=== PATIENT | male | born 1965 | race Caucasian/White ===

== ENCOUNTER 2022-03-13 10:22 | Outpatient (CLI) | payer MEDICARE, SELFPAY | END 2022-03-13 10:23 | disposition home or self-care (01) | PROVIDERS: Visit Provider Family Medicine | DX: M51.36 Other intervertebral disc degeneration, lumbar region (principal); M54.16 Radiculopathy, lumbar region | CPT/HCPCS: 62323; J0702; Q9966 ==

== ENCOUNTER 2022-05-22 01:16 | Emergency (ER) | payer MEDICARE, SELFPAY ==
[2022-05-22 01:32] VITALS: BP 164/86; PULSE 78; RESP 22; TEMP 36.8; O2SAT 95; BMI 43.3
[2022-05-22 01:41] VITALS: PULSE 68; O2SAT 98
[2022-05-22 01:45] VITALS: PULSE 75; O2SAT 98
[2022-05-22 02:00] VITALS: PULSE 75; O2SAT 99
[2022-05-22 02:03] LABS: Troponin, Point-of-Care* 0.01 ng/ml (0.01-0.04)
[2022-05-22 02:03] LABS: Basophils Absolute Auto 0.02 K/uL (0.00-0.30); Basophils Percent Auto 0.2 % (0.0-3.0); Eosinophils Absolute Auto 0.23 K/uL (0.00-0.50); Eosinophils Percent Auto 2.4 % (0.0-7.0); Hematocrit 39.4 % (37.0-53.0); Immature Granulocytes Abs Auto 0.03 K/uL (0.00-0.30); Immature Granulocytes Pct Auto 0.3 %; Lymphocytes Percent Auto 15.5 % (20-44); Mean Corpuscular HGB Conc 31 gm/dL (32-36); Mean Corpuscular Hemoglobin 23 pg (26-34); Mean Corpuscular Volume 76 fL (80-100); Monocytes Percent Auto 7.9 % (0.0-11.0); Neutrophils Percent Auto 73.7 % (42.0-72.0); Platelet Count* 190 K/uL (140-440); RDW Coefficient of Variation % 15.6 % (11.5-15.5); Red Blood Count 5.19 m/uL (4.30-5.90); White Blood Count* 9.55 K/uL (4.50-11.00)
[2022-05-22 02:06] LABS: Slide Review Reflex No
[2022-05-22] MEDS: LORazepam 1 MG TABLET PO (02:09)
[2022-05-22 02:15] VITALS: PULSE 68; O2SAT 99
[2022-05-22 02:15] LABS: C Reactive Protein* 1.6 mg/dL (0.5-1.0); Sodium* 142 mmol/L (135-149)
[2022-05-22 02:16] LABS: Blood Urea Nitrogen* 14 mg/dL (7-30); Carbon Dioxide* 31 mmol/L (20-32); Chloride* 105 mmol/L (96-114); Creatinine* 1.1 mg/dL (0.5-1.5); Est. Creatinine Clearance* 72.55; Estimated Glomerular Filt Rate 79 ml/min; Glucose* 143 mg/dL (60-115); NT Pro B Type NatriureticPept* 536 pg/mL; Potassium* 4.1 mmol/L (3.6-5.1); Troponin I* 0.02 ng/mL (0.01-0.04)
--- NOTE | 2022-05-22 02:19 | ED_ITS ---
HPI - General Adult General Chief complaint: Chest Pain Stated complaint: chest pain, shortness of breath Time Seen by Provider: 05/22/22 01:32 Source: patient and family Mode of arrival: ambulatory Limitations: no limitations History of Present Illness HPI narrative: 56-year-old male with a history of long COVID and admitted anxiety presents to the ED with what he describes as anxiety. He states that he has ongoing dyspnea and chronic whole body pain as a result of COVID for the last couple of years. Patient has been oxygen dependent on 2 L since his diagnosis. He states that around 6:00 p.m. he started having increased chest pain over his baseline. He does have a notable history of coronary artery disease with stents placed 2 years ago. He says that he felt anxious with this tried turning up his oxygen which he does very frequently to try to help with his shortness of breath. He also tried taking nitroglycerin after notifying his significant other 1 hour later in it did not help his symptoms. He has not tried any Tylenol or ibuprofen for the chest pain. He admits to feeling anxious. He has not used any stimulants or mood altering substances. He does have a known history of depression and anxiety and is compliant with his sertraline in the morning and did take his clonazepam at night but did not notice improvement. He has not missed any doses of his medications for his heart disease specifically Plavix, lisinopril, Coreg or isosorbide. He also has tizanidine for muscle spasm which he did take as well and he also took his mirtazapine which is part of his mood regimen as well. None of these seem to help his symptoms. His primary care provider has also discuss not turning up his oxygen as a means to treat subjective dyspnea and shortness of breath without any objective measurements. He has a hard time sorting out his thoughts on acute and chronic concerns today but ultimately I am able to deduce that they were concerned that the chest pain could be something more serious but he is wanting more aggressive management of his anxiety. No dizziness, no loss of consciousness. No new productive cough or fever. No abdominal symptoms. Stable chronic pain with no recent trauma or injury. Past medical history is fairly extensive. Coronary artery disease, long COVID with chronic hypoxic respiratory failure, chronic pain, hypertension, morbid obesity, depression anxiety. His home medications are reviewed from his list in our accurate now is listed into our records. As are his allergies. Her surgical history, he has had the stents as described above he has also had gallbladder surgery. Socially he does not drink any alcohol or smoke. He has a good supportive significant other who is very helpful at filling in the details of his illness today. ROS is notable for the chest symptoms as above as well as anxiety and multiple other chronic concerns. From what I can deduce, there are no acute new changes today times 12 systems otherwise Related Data Home Medications Medication Instructions Recorded Confirmed albuterol sulfate 2.5 mg/3 mL 2.5 mg inhalation Q6H PRN 05/22/22 05/22/22 (0.083 %) solution for nebulization atorvastatin 40 mg tablet 40 mg PO HS 05/22/22 05/22/22 carvedilol 25 mg tablet 25 mg PO Q12H 05/22/22 05/22/22 cholecalciferol (vitamin D3) 25 1,000 unit PO DAILY 05/22/22 05/22/22 mcg (1,000 unit) tablet clonazepam 1 mg tablet 1 mg PO HS 05/22/22 05/22/22 clonidine HCl 0.1 mg tablet 0.1 mg PO BID 05/22/22 05/22/22 clopidogrel 75 mg tablet 75 mg PO DAILY 05/22/22 05/22/22 cyanocobalamin (vitamin B-12) 1,000 mcg PO DAILY 05/22/22 05/22/22 1,000 mcg tablet (Vitamin B-12) famotidine 20 mg tablet 20 mg PO DAILY 05/22/22 05/22/22 ipratropium 0.5 mg-albuterol 3 mg 3 ml inhalation QID PRN 05/22/22 05/22/22 (2.5 mg base)/3 mL nebulization soln isosorbide mononitrate 60 mg 60 mg PO DAILY 05/22/22 05/22/22 tablet,extended release 24 hr lisinopril 20 mg tablet 20 mg PO BID 05/22/22 05/22/22 mirtazapine 15 mg tablet 15 mg PO HS 05/22/22 05/22/22 nitroglycerin 0.4 mg sublingual 0.4 mg sublingual Q5-15M PRN 05/22/22 05/22/22 tablet (Nitrostat) omeprazole 40 mg capsule,delayed 40 mg PO DAILY 05/22/22 05/22/22 release oxybutynin chloride 5 mg 5 mg PO DAILY 05/22/22 05/22/22 tablet,extended release 24 hr potassium chloride 20 mEq 40 meq PO BID 05/22/22 05/22/22 tablet,extended release sertraline 100 mg tablet 100 mg PO BID 05/22/22 05/22/22 tizanidine 4 mg tablet 4 mg PO HS 05/22/22 05/22/22 Allergies Allergy/AdvReac Type Severity Reaction Status Date / Time methylprednisolone Allergy Intermediate Insomnia Verified 05/22/22 01:57 [From Medrol] acetaminophen [From Percocet] Allergy Verified 05/22/22 01:57 citalopram [From Celexa] Allergy Verified 05/22/22 01:57 diphenhydramine Allergy Verified 05/22/22 01:57 [From Benadryl] morphine Allergy Verified 05/22/22 01:57 oxycodone [From Percocet] Allergy Verified 05/22/22 01:57 [facility] Medical History ACS (acute coronary syndrome) Acute hypoxemic respiratory failure Acute idiopathic gout Acute respiratory failure with hypoxia Adenomatous colon polyp Adrenal adenoma Arteriosclerotic cardiovascular disease [place] Borderline personality disorder DDD (degenerative disc disease) Dental infection Dependent personality disorder GERD (gastroesophageal reflux disease) Hypertension Major depressive disorder, recurrent episode, moderate Microcytic anemia On home oxygen therapy Panic disorder without agoraphobia Pneumonia due to severe acute respiratory syndrome coronavirus 2 (SARS-CoV-2) Post-viral cough syndrome Vitamin D deficiency Exam Const: Vital Signs, click to edit/add: Vital Signs - 24 hr 05/22/22 01:32 05/22/22 01:41 05/22/22 01:45 Temperature 98.2 F Pulse Rate 68 75 Pulse Rate [Right Pulse Oximeter] 78 Respiratory Rate 22 Blood Pressure [Ri ght Upper Arm] 164/86 H Pulse Oximetry 95 98 98 Oxygen Delivery Me thod Nasal Cannula Oxygen Flow Rate 2 05/22/22 02:00 05/22/22 02:15 Temperature Pulse Rate 75 68 Pulse Rate [Right Pulse Oximeter] Respiratory Rate Blood Pressure [Ri ght Upper Arm] Pulse Oximetry 99 99 Oxygen Delivery Me thod Oxygen Flow Rate Documenting provider has reviewed patient's vital signs: yes Common normals: alert Other: Limited insight but does not appear in any visible respiratory distress. HENMT: Common normals: normocephalic and head/scalp atraumatic Head and scalp: normocephalic and atraumatic Mouth: oral and palatal mucosa normal Throat: posterior oropharynx normal Eye: Common normals: conjunctivae normal General eye: normal appearance of both eyes Conjunctiva: conjunctiva(e) normal Neck & C-Spine: Common normals: full ROM and no lymphadenopathy Chest: Common normals: inspection of chest normal Resp: Common normals: normal respiratory effort, no use of accessory muscles and clear to auscultation bilaterally Effort & inspection: able to speak in complete sentences Auscultation: clear to auscultation bilaterally Cardio: Common normals: regular rate, regular rhythm, S1 normal heart sound, S2 normal heart sound, no murmurs and peripheral pulses 2+ throughout Rate: regular rate Rhythm: regular rhythm Heart sounds: S1 normal and S2 normal Peripheral pulses: pulses 2+ throughout GI: Common normals: Normal to inspection, nondistended, normoactive bowel sounds present Other: Obese but soft with no obvious mass or tenderness. Extremity: Other: Normal capillary refill with trace edema bilaterally. Chronic onychomycosis of the great toes. No evidence of surrounding cellulitis or infection Neuro: Sensorium/orientation: alert Motor exam: no tremor noted and no movement abnormalities noted Psych: Other: Anxious with poor insight. Difficult to redirect. Answers questions circumstantially. Does not seem to be deceptive just poor insight. He does cooperate well with exam, good report with significant other. Skin: Common normals: no rashes or lesions noted General skin exam: no rashes or lesions noted Course Vital Signs Vital signs: Initial Vital Signs Temperature 98.2 F 05/22/22 01:32 Temperature Source Temporal Artery Scan 05/22/22 01:32 Pulse Rate 78 05/22/22 01:32 Pulse Rhythm 05/22/22 01:32 Respiratory Rate 22 05/22/22 01:32 Blood Pressure 164/86 H 05/22/22 01:32 Blood Pressure Mean 112 05/22/22 01:32 Blood Pressure Position Sitting 05/22/22 01:32 Pulse Oximetry 95 05/22/22 01:32 Oxygen Delivery Method 05/22/22 01:32 Oxygen Flow Rate 2 05/22/22 01:32 Vital Signs Temperature 98.2 F 05/22/22 01:32 Pulse Rate 78 05/22/22 01:32 Respiratory Rate 22 05/22/22 01:32 Blood Pressure 164/86 H 05/22/22 01:32 Pulse Oximetry 95 05/22/22 01:32 Oxygen Delivery Method 05/22/22 01:32 Oxygen Flow Rate 2 05/22/22 01:32 Temperature 98.2 F 05/22/22 01:32 Pulse Rate 68 05/22/22 02:15 Respiratory Rate 22 05/22/22 01:32 Blood Pressure 164/86 H 05/22/22 01:32 Pulse Oximetry 99 05/22/22 02:15 Oxygen Delivery Method 05/22/22 01:32 Oxygen Flow Rate 2 05/22/22 01:32 Medical Decision Making MDM Narrative Medical decision making narrative: Clear lung exam, no evidence of any hypoxia. Counseled patient on not turning up his oxygen to treat the subjective dyspnea. Use a fan may be helpful for symptomatic control only. Does have underlying coronary artery disease in his high risk for further heart disease. I recommended basic cardiac workup. At the time of my interview, he had been symptomatic for 8 hours. Will not likely need multiple serial blood levels if his symptoms improve and initial studies are negative. Will administer 1 mg of p.o. Ativan and reassess. If he remains symptomatic, serial cardiac enzymes and retry nitroglycerin. Update: Reassess patient 30 minutes after lorazepam, marked improvement in symptoms. Normal labs all reviewed with patient and significant other. Since he has been symptomatic for 8 hours and his pain is completely relieved by the lorazepam, I do not recommend serial cardiac enzymes in his case. They were in agreement with this. They will be discharged home with primary care follow-up on an as-needed basis no changes to his ongoing medication regimen. Lab Data Lab results reviewed: Yes I reviewed the patient's lab results Lab results narrative: Reassuring Labs: Lab Results 05/22/22 05/22/22 05/22/22 Range/Units 01:34 01:34 01:54 WBC 9.55 (4.50-11.00) K/uL RBC 5.19 (4.30-5.90) m/uL Hgb 12.0 L (13.5-17.5) gm/dL Hct 39.4 (37.0-53.0) % MCV 76 L (80-100) fL MCH 23 L (26-34) pg MCHC 31 L (32-36) gm/dL RDW Coeff of Maria Luisa 15.6 H (11.5-15.5) % Plt Count 190 (140-440) K/uL Neut % (Auto) 73.7 H (42.0-72.0) % Lymph % (Auto) 15.5 L (20-44) % Boundary % (Auto) 7.9 (0.0-11.0) % Eos % (Auto) 2.4 (0.0-7.0) % Baso % (Auto) 0.2 (0.0-3.0) % Neut # (Auto) 7.00 (1.7-7.0) K/uL Lymph # (Auto) 1.50 (0.90-2.90) K/uL Boundary # (Auto) 0.80 (0.00-0.90) K/UL Eos # (Auto) 0.23 (0.00-0.50) K/uL Baso # (Auto) 0.02 (0.00-0.30) K/uL Sodium 142 (135-149) mmol/L Potassium 4.1 (3.6-5.1) mmol/L Chloride 105 (96-114) mmol/L Carbon Dioxide 31 (20-32) mmol/L BUN 14 (7-30) mg/dL Creatinine 1.1 (0.5-1.5) mg/dL Estimated Creat Clear 72.55 Estimated GFR 79 ml/min Glucose 143 H (60-115) mg/dL Calcium 9.0 (8.4-10.6) mg/dL Troponin I 0.02 (0.01-0.04) ng/mL C-Reactive Protein 1.6 H (0.5-1.0) mg/dL NT-Pro-B Natriuret Pep 536 pg/mL POC Troponin I 0.01 (0.01-0.04) ng/ml ECG Data Attestation: I personally reviewed and interpreted this ECG as follows: Prior ECG tracings: available for review Interpretation: Normal sinus rhythm, rate 74, with signs of right bundle-branch block. This is unchanged from 03/23/2020. Subtle inferior changes are also unchanged. No obvious acute ST or T-wave abnormalities today. Normal axis Discharge Plan Discharge Clinical Impression: Chest pain due to psychological stress Patient Disposition: Home w/ Parent or Adult Condition: Stable Instructions: Stress (ED) Additional Instructions: Your blood work is all reassuring today. Your oxygen levels are normal as well. There are no signs of any flare up of your lung disease or any other abnormalities. I do not recommend that we make any long-term changes to her medications. I recommend you continue working with your psychologist and your primary care team regarding your depression and anxiety. Continue all of your cardiac medications exactly as prescribed. Do not turn up her oxygen when you are feeling anxious and short of breath. Some people do find benefit from blowing a fan in their face in addition to wearing their typical amount of oxygen. You are welcome to try this if you find it beneficial. Activity Level: No Restrictions Discharge Diet: Regular Prescriptions: No Action atorvastatin 40 mg tablet 40 mg PO HS carvedilol 25 mg tablet 25 mg PO Q12H clonazepam 1 mg tablet 1 mg PO HS clonidine HCl 0.1 mg tablet 0.1 mg PO BID clopidogrel 75 mg tablet 75 mg PO DAILY famotidine 20 mg tablet 20 mg PO DAILY isosorbide mononitrate 60 mg tablet extended release 24 hr 60 mg PO DAILY lisinopril 20 mg tablet 20 mg PO BID mirtazapine 15 mg tablet 15 mg PO HS omeprazole 40 mg capsule,delayed release(DR/EC) 40 mg PO DAILY oxybutynin chloride 5 mg tablet extended release 24hr 5 mg PO DAILY potassium chloride 20 mEq tablet extended release 40 meq PO BID sertraline 100 mg tablet 100 mg PO BID tizanidine 4 mg tablet 4 mg PO HS albuterol sulfate 2.5 mg /3 mL (0.083 %) solution for nebulization 2.5 mg inhalation Q6H PRN ipratropium-albuterol 0.5 mg-3 mg(2.5 mg base)/3 mL solution for nebulization 3 ml inhalation QID PRN cholecalciferol (vitamin D3) 25 mcg (1,000 unit) tablet 1,000 unit PO DAILY cyanocobalamin (vitamin B-12) [Vitamin B-12] 1,000 mcg tablet 1,000 mcg PO DAILY nitroglycerin [Nitrostat] 0.4 mg tablet, sublingual 0.4 mg sublingual Q5-15M PRN Rx Instructions: do not exceed 3 doses per episode Follow Up/Referrals: Jazmyn Clark DO [Primary Care Provider] - Stand Alone Forms: [facility] Info Instructions
== END 2022-05-22 02:59 | disposition home or self-care (01) ==
PROVIDERS: Emergency Provider Family Medicine; PCP Family Medicine
DX: R07.9 Chest pain, unspecified (principal); F43.9 Reaction to severe stress, unspecified
CPT/HCPCS: 36415; 80048; 83880; 84484; 85025; 86140; 93005; 99283; 99284; A9270

== ENCOUNTER 2022-10-01 13:00 | Emergency (ER) | payer MEDICARE, SELFPAY ==
[2022-10-01 13:27] VITALS: BP 178/98; PULSE 72; RESP 18; TEMP 36.8; O2SAT 97; BMI 32.9
== END 2022-10-01 14:41 | disposition left against medical advice (07) ==
PROVIDERS: Emergency Provider Emergency Medicine Emergency Medical Services; PCP Family Medicine
DX: Z53.21 Procedure and treatment not carried out due to patient leaving prior to being seen by health care provider (principal)

== ENCOUNTER 2022-10-02 03:25 | Emergency (ER) | payer MEDICARE, SELFPAY ==
[2022-10-02 03:44] VITALS: BP 196/126; PULSE 87; RESP 24; TEMP 36.1; O2SAT 97
--- NOTE | 2022-10-02 04:08 | CRLHL7_ITS ---
For Patients: As a result of the Century Cures Act, medical imaging exams and procedure reports are released immediately into your electronic medical record. You may view this report before your referring provider. If you have questions, please contact your health care provider. INDICATION: altered mental status, has shingles, hallucinations, vomiting, panic attacks TECHNIQUE: Head CT without contrast. COMPARISON: CT head August 12, 2020. FINDINGS: CSF spaces: Mild global parenchymal volume loss similar to prior. Brain parenchyma and extra-axial spaces: Thyroid junction is preserved. No sign of intracranial hemorrhage, or midline shift. Previously queried rounded mildly dense soft tissue mass near the left CPA region is not definitely visualized on this examination possibly due to technique or was possibly due to artifact on prior exam. Skull base and calvarium: Similar trace fluid layering within the right mastoid air cells. Mild mucosal thickening in the right or left maxillary sinuses and right sphenoid sinus. No skull fractures. Atherosclerosis of the carotid siphons and intradural vertebral arteries. IMPRESSION: No evidence of acute intracranial abnormalities on head CT. Stable minimal chronic right mastoid effusion. Previously queried rounded mildly dense soft tissue mass (possible meningioma) near the left CPA region is not definitely visualized on this examination possibly due to technique or potentially was due to artifact on prior exam. As previously suggested MRI of the brain with and without contrast could be considered for confirmation. Please note that all CT scans at this facility use dose modulation, iterative reconstruction, and/or weight-based dosing when appropriate to reduce radiation dose to as low as reasonably achievable. Dictated by Javy Banuelos MD @ 10/02/2022 5:27:51 AM (Electronically Signed)
--- NOTE | 2022-10-02 04:14 | ED.GENADULT ---
HPI - General Adult General Chief complaint: Unspecified Complaint, Adult Stated complaint: hallucinations,vomiting, panic attacks Time Seen by Provider: 10/02/22 03:35 Source: patient and family Mode of arrival: ambulatory History of Present Illness HPI narrative: 57-year-old male comes in in the middle of the night with his significant other for evaluation of ?not acting right? for the last 4 days. He reports that they presented to the ED about 20 hours ago but there were 18 people ahead of the midline and they elected to leave and go home and come back at a less busy time. Patient was evaluated in the ED last week for atypical chest pain, was discharged home and followed up with primary care provider. At that time he then had an outbreak of a rash consistent with shingles in the area of pain, confirming the diagnosis. He was treated with valacyclovir and oxycodone, no steroids per their report. reports that he finished taking the oxycodone on Saturday and started acting funny. He has been paranoid, more anxious. Of note, his sertraline was also discontinued and he was transition onto Lexapro within the last couple of weeks also. She had not realized until I pointed out that the correlation does match with the recent change in medication. He increased his Lexapro from 10 mg to 20 mg once daily as directed as well, 5 days prior to symptoms worsening. This was just a few days prior to the increased confusion, balance issues, memory impairment and hallucinations per his 's report. The hallucinations are not visual, just that patient will report that he thought he heard his talking to someone in the living room, when no one was there. In retrospect, he thinks that could have potentially been the TV, videos on her phone or talking to the pets. She states that he had similar symptoms after he was discharged from [facility] a couple of years ago for COVID issues but had returned to baseline over the last couple of years until 4 days ago when his symptoms began. Appetite has been poor, he has had nausea and vomiting today. No trauma or injury, no headache no other focal neurological changes. We review his medications provided on their my chart. Mirtazapine is also listed at bedtime but states they do not take this apparently this was discontinued around the same time as the Lexapro and sertraline swap. He also takes a couple of other serotonin inducing agents like tizanidine which they state is not new. He also has Vistaril p.r.n. for panic attacks but states he has not used that recently. He has continued to take his clonazepam at bedtime and no other changes to his other long-term medications as listed. He is on 2 L chronic oxygen at baseline. For all, his complaints are very vague, and not further substantiated by his significant other. No focal neurological changes, hemiparesis, visual changes. No falls or injury. Uses a cane at baseline, is often refusing to use it. No recent symptoms of localizing illness or fever, no cellulitis, falls, chest pain, breathing difficulty, productive cough, diarrhea. He notes pain in the area of shingles only, no other areas. No facial or visual type involvement. Past medical history is fairly involved. Prior coronary artery disease, respiratory failure secondary to COVID, is chronically on home oxygen. Hypertension, sleep apnea, depression and anxiety. No prior psychosis. Denies alcohol or illicit drug use. ROS is notable for the generalized, neurological, psychiatric and skin symptoms as described above. Also notable for the GI and musculoskeletal symptoms as above, otherwise denies times 12 systems. Related Data Home Medications Medication Instructions Recorded Confirmed albuterol sulfate 2.5 mg/3 mL 2.5 mg inhalation Q6H PRN 05/22/22 09/22/22 (0.083 %) solution for nebulization atorvastatin 40 mg tablet 40 mg PO HS 05/22/22 09/22/22 carvedilol 25 mg tablet 25 mg PO Q12H 05/22/22 09/22/22 cholecalciferol (vitamin D3) 25 1,000 unit PO DAILY 05/22/22 09/22/22 mcg (1,000 unit) tablet clonazepam 1 mg tablet 1 mg PO HS 05/22/22 09/22/22 clonidine HCl 0.1 mg tablet 0.1 mg PO BID 05/22/22 09/22/22 clopidogrel 75 mg tablet 75 mg PO DAILY 05/22/22 09/22/22 cyanocobalamin (vitamin B-12) 1,000 mcg PO DAILY 05/22/22 09/22/22 1,000 mcg tablet (Vitamin B-12) famotidine 20 mg tablet 20 mg PO DAILY 05/22/22 09/22/22 ipratropium 0.5 mg-albuterol 3 mg 3 ml inhalation QID PRN 05/22/22 09/22/22 (2.5 mg base)/3 mL nebulization soln isosorbide mononitrate 60 mg 60 mg PO DAILY 05/22/22 09/22/22 tablet,extended release 24 hr lisinopril 20 mg tablet 20 mg PO BID 05/22/22 09/22/22 nitroglycerin 0.4 mg sublingual 0.4 mg sublingual Q5-15M PRN 05/22/22 09/22/22 tablet (Nitrostat) omeprazole 40 mg capsule,delayed 40 mg PO DAILY 05/22/22 09/22/22 release oxybutynin chloride 5 mg 5 mg PO DAILY 05/22/22 09/22/22 tablet,extended release 24 hr potassium chloride 20 mEq 40 meq PO BID 05/22/22 09/22/22 tablet,extended release tizanidine 4 mg tablet 4 mg PO HS 05/22/22 09/22/22 escitalopram oxalate 10 mg tablet 10 mg PO DAILY 09/22/22 09/22/22 hydroxyzine HCl 25 mg tablet 25 mg PO BID PRN panic attack 09/22/22 09/22/22 Allergies Allergy/AdvReac Type Severity Reaction Status Date / Time methylprednisolone Allergy Intermediate Insomnia Verified 10/01/22 13:24 [From Medrol] acetaminophen [From Percocet] Allergy Verified 10/01/22 13:24 citalopram [From Celexa] Allergy Verified 10/01/22 13:24 diphenhydramine Allergy Verified 10/01/22 13:24 [From Benadryl] morphine Allergy Verified 10/01/22 13:24 oxycodone [From Percocet] Allergy Verified 10/01/22 13:24 [facility] Medical History On home oxygen therapy ?Z99.81 - Dependence on supplemental oxygen (ICD-10) Post-viral cough syndrome ?R05.8 - Other specified cough (ICD-10) Acute respiratory failure with hypoxia ?J96.01 - Acute respiratory failure with hypoxia (ICD-10) 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 - Dependent personality disorder (ICD-10) Borderline personality disorder ?F60.3 - Borderline personality disorder (ICD-10) Major depressive disorder, recurrent episode, moderate ?F33.1 - Major depressive disorder, recurrent, moderate (ICD-10) Panic disorder without agoraphobia ?F41.0 - Panic disorder [episodic paroxysmal anxiety] (ICD-10) Bone island ?M89.8X9 - Other specified disorders of bone, unspecified site (ICD-10) DDD (degenerative disc disease) Pneumonia due to severe acute respiratory syndrome coronavirus 2 (SARS-CoV-2) ?U07.1 - COVID-19 (ICD-10) ?J12.82 - Pneumonia due to coronavirus disease 2019 (ICD-10) Microcytic anemia ?D50.9 - Iron deficiency anemia, unspecified (ICD-10) Adenomatous colon polyp ?D12.6 - Benign neoplasm of colon, unspecified (ICD-10) Dental infection ?K04.7 - Periapical abscess without sinus (ICD-10) GERD (gastroesophageal reflux disease) ?K21.9 - Gastro-esophageal reflux disease without esophagitis (ICD-10) Adrenal adenoma ?D35.00 - Benign neoplasm of unspecified adrenal gland (ICD-10) Acute hypoxemic respiratory failure ?J96.01 - Acute respiratory failure with hypoxia (ICD-10) Acute idiopathic gout ?M10.00 - Idiopathic gout, unspecified site (ICD-10) Vitamin D deficiency ?E55.9 - Vitamin D deficiency, unspecified (ICD-10) Arteriosclerotic cardiovascular disease ?I25.10 - Atherosclerotic heart disease of [place] coronary artery without angina pectoris (ICD-10) ACS (acute coronary syndrome) ?I24.9 - Acute ischemic heart disease, unspecified (ICD-10) Hypertension ?I10 - Essential (primary) hypertension (ICD-10) Social History Smoking Status: Former smoker How often do you have a drink containing alcohol: never AUDIT-C Alcohol total score: 0 Non-prescribed substance use: denies use Exam Const: Vital Signs, click to edit/add: Vital Signs - 24 hr 10/02/22 03:44 10/02/22 04:41 10/02/22 05:03 Temperature 97.0 F L Pulse Rate [Left P ulse Oximeter] 87 87 77 Respiratory Rate 24 20 20 Blood Pressure [Ri ght Upper Arm] 196/126 H 212/119 H 209/112 H Pulse Oximetry 97 93 93 Oxygen Delivery Me thod OxyMask OxyMask OxyMask Oxygen Flow Rate 2 2 2 Documenting provider has reviewed patient's vital signs: yes Other: Limited insight, poor historian. Does not appear acutely dehydrated or ill. HENMT: Common normals: normocephalic Head and scalp: normocephalic Face and sinus: normal facial exam Mouth: oral and palatal mucosa normal Throat: posterior oropharynx normal Eye: Common normals: PERRL, EOMs intact bilaterally and conjunctivae normal General eye: normal appearance of both eyes Conjunctiva: conjunctiva(e) normal Pupil: PERRL Neck & C-Spine: Common normals: full ROM and no lymphadenopathy Resp: Common normals: normal respiratory effort, no use of accessory muscles and clear to auscultation bilaterally Effort & inspection: able to speak in complete sentences Auscultation: clear to auscultation bilaterally Cardio: Common normals: regular rate, regular rhythm, S1 normal heart sound, S2 normal heart sound and no murmurs Rate: regular rate Rhythm: regular rhythm Heart sounds: S1 normal and S2 normal GI: Common normals: Normal to inspection, nondistended, normoactive bowel sounds present, soft to palpation, non-tender, no hepatosplenomegaly and no masses Palpation: soft and no hepatosplenomegaly Extremity: Common normals: full ROM, normal capillary refill and no joint enlargement Neuro: Common normals: CN's II-XII intact bilaterally, moves all extremities and no focal motor deficits Other: Does not participate in rapid alternating movement or cerebellar testing movements well. Does seem somewhat elective. He is obviously quite anxious but I do not appreciate any acute stroke-like symptoms. Psych: Other: Anxious with no obvious delusion. He is cooperative with exam, can pull himself up to sitting with no assistance. Normal truncal support. Insight and judgment do seem a bit limited but I am not familiar with his baseline. No agitation. Skin: Narrative: Healing shingles along right upper back and axillary area, scabbed over appropriately. No surrounding cellulitis. Course Course Hospital Course: Differential diagnosis including stroke, encephalitis secondary to shingles, depression with acute psychosis, medication side effect from recent adjustment and titration of Lexapro while on other serotonin agents, metabolic etiology including acidosis, electrolyte abnormality, cardiac issue, infection. Recommended basic labs, electrolytes, head CT. My suspicion is this is most likely psychiatric. Await findings. Will likely need telehealth assessment. Reevaluation(s) Time of Reevaluation #1: 05:14 Reevaluation #1: Reviewed normal lab findings with patient and significant other, reassuring. Discussed head CT. We did a ?road test? where he ambulated around the emergency department with his walker. He is mentating normally at this time is able answer questions. He agrees that he thinks he just got very anxious. He is getting more clarity as to the events of the weekend, he thinks that the oxycodone probably was too much for him. He also did recently increase his Lexapro and stop his mirtazapine. He denies any visual auditory hallucinations. He is a little confused on the date but thinks that simply because he lost track of time while he was on the oxycodone. He does not want to wait for an MRI appointment later this morning. He does not think that he needs to be hospitalized for his mental health. He does not feel as though he is a threat to his own safety. His significant other agrees. She agrees that it seems like the medications were causing the biggest problems. We chat about this has he ambulates around the ED. they would like to discharge home with some recommendations on medication reduction and can arrange outpatient primary care follow-up. This is certainly reasonable. We reviewed the alarm symptoms that would warrant more advanced imaging, stroke-like symptoms, suicidal thoughts that would warrant mental health treatment, they all verbalized understanding and agreement. assures me that they have a walker at home that he can use as he did seem very steady with this and sometimes refuses to use his cane at home. He did accept our recommendation for this also. Vital Signs Vital signs: Initial Vital Signs Temperature 97.0 F L 10/02/22 03:44 Temperature Source Temporal Artery Scan 10/02/22 03:44 Pulse Rate 87 10/02/22 03:44 Respiratory Rate 24 10/02/22 03:44 Blood Pressure 196/126 H 10/02/22 03:44 Blood Pressure Mean 149 H 10/02/22 03:44 Blood Pressure Position Sitting 10/02/22 03:44 Pulse Oximetry 97 10/02/22 03:44 Oxygen Delivery Method OxyMask 10/02/22 03:44 Oxygen Flow Rate 2 10/02/22 03:44 Vital Signs Temperature 97.0 F L 10/02/22 03:44 Pulse Rate 87 10/02/22 03:44 Respiratory Rate 10/02/22 03:44 Blood Pressure 196/126 H 10/02/22 03:44 Pulse Oximetry 97 10/02/22 03:44 Oxygen Delivery Method OxyMask 10/02/22 03:44 Oxygen Flow Rate 2 10/02/22 03:44 Temperature 97.0 F L 10/02/22 03:44 Pulse Rate 77 10/02/22 05:03 Respiratory Rate 10/02/22 05:03 Blood Pressure 209/112 H 10/02/22 05:03 Pulse Oximetry 93 10/02/22 05:03 Oxygen Delivery Method OxyMask 10/02/22 05:03 Oxygen Flow Rate 2 10/02/22 05:03 Medical Decision Making Lab Data Lab results reviewed: Yes I reviewed the patient's lab results Lab results narrative: Reassuring, stable Labs: Lab Results 10/02/22 10/02/22 10/02/22 Range/Units 04:08 04:15 04:48 WBC 8.81 (4.50-11.00) K/uL RBC 4.54 (4.30-5.90) m/uL Hgb 10.3 L (13.5-17.5) gm/dL Hct 34.1 L (37.0-53.0) % MCV 75 L (80-100) fL MCH 23 L (26-34) pg MCHC 30 L (32-36) gm/dL RDW Coeff of Maria [place]isa 18.3 H (11.5-15.5) % Plt Count 159 (140-440) K/uL Neut % (Auto) 73.0 H (42.0-72.0) % Lymph % (Auto) 15.4 L (20-44) % [place] % (Auto) 9.3 (0.0-11.0) % Eos % (Auto) 1.9 (0.0-7.0) % Baso % (Auto) 0.1 (0.0-3.0) % Neut # (Auto) 6.40 (1.7-7.0) K/uL Lymph # (Auto) 1.40 (0.90-2.90) K/uL [place] # (Auto) 0.80 (0.00-0.90) K/UL Eos # (Auto) 0.17 (0.00-0.50) K/uL Baso # (Auto) 0.01 (0.00-0.30) K/uL VBG pH 7.392 (7.32-7.43) VBG pCO2 45 (40-50) mmHG VBG pO2 41.3 (25-47) mmHG VBG HCO3 28 (21-28) mmol/L Sodium 135 (135-149) mmol/L Potassium 3.9 (3.6-5.1) mmol/L Chloride 101 (96-114) mmol/L Carbon Dioxide 28 (20-32) mmol/L BUN 11 (7-30) mg/dL Creatinine 0.9 (0.5-1.5) mg/dL Estimated GFR 100 ml/min Glucose 108 (60-115) mg/dL Lactate 0.8 (0.5-1.9) mmol/L Calcium 8.9 (8.4-10.6) mg/dL Total Bilirubin 1.1 (0.1-1.5) mg/dL AST 35 (12-35) U/L ALT 42 (4-50) U/L Alkaline Phosphatase 200 H (40-150) U/L Total Protein 7.4 (6.0-8.3) g/dL Albumin 4.1 (3.3-5.0) g/dL Urine Color Yellow (Yellow) Urine Appearance Clear (Clear) Urine pH 5.5 (5.0-8.5) Ur Specific [place] 1.020 (1.000-1.030) Urine Protein Negative (Negative) Urine Glucose (UA) Negative (Negative) Urine Ketones 2+ A (Negative) Urine Blood Negative (Negative) Urine Nitrite Negative (Negative) Urine Bilirubin 1+ A (Negative) Urine Urobilinogen 0.2 (0.2-1.0) Ur Leukocyte Esterase Negative (Negative) Urine Opiates Screen Negative (Negative) Ur Oxycodone Screen POSITIVE A* (Negative) Urine Methadone Screen Negative (Negative) Ur Propoxyphene Screen Negative (Negative) Ur Barbiturates Screen Negative (Negative) U Tricyclic Antidepress Negative (Negative) Ur Phencyclidine Scrn Negative (Negative) Ur Amphetamines Screen Negative (Negative) U Methamphetamines Scrn Negative (Negative) U Benzodiazepines Scrn Negative (Negative) Urine Cocaine Screen Negative (Negative) U Marijuana (THC) Screen Negative (Negative) Ur Drug Screen Comment See Note Ethyl Alcohol < 0.01 L (0.01-0.03) % POC Troponin I 0.00 L (0.01-0.04) ng/ml Imaging Data CT scan - head: Attestation: I have reviewed the pertinent imaging results. My impression: No acute findings Radiologist's impression: IMPRESSION: No evidence of acute intracranial abnormalities on head CT. Discharge Plan Discharge Clinical Impression: Medication side effect, Acute delirium Patient Disposition: Home w/ Parent or Adult Condition: Improved Instructions: Acute Delirium (ED) Additional Instructions: I am glad that your symptoms are improving. As we discussed, this could be caused by multiple things. My strongest suspicion is that this is a combination of the oxycodone and your new antidepressants causing more agitation and a medical condition called delirium which is altered mental status compound by medications side effects. The CT scan of your head does not show any signs of a new stroke. As we discussed, I would have liked to have done an MRI to look more closely. You were not concerned enough about your symptoms to wait for that test. This is certainly reasonable. We do not have any beds in the hospital at this time and you are not willing to wait for the MRI. If we still have clinical suspicions, this could be arranged outpatient. Since her symptoms have been present for several days, our management would not likely change. Your neurological exam is otherwise reassuring, and you did very well walking with the use of the walker today. There are no obvious signs of infection or complications from the shingles and the rest of your blood work looks great also. My guess is that the combination of oxycodone and the new Lexapro, combined with your other medications caused most of the side effects. I am glad that you are done now with the oxycodone, your symptoms should improve over the next few days. I would like for you to not take any of the Lexapro 2 day which is Saturday and then decrease to 10 mg which is half of your previous dose for the next 7 days. You will continue all the rest of your medications exactly as prescribed. At the end of the 7 days of the reduced Lexapro, you will increase it again to 20 mg. If the delirium returns, we have our answer. Potentially, stopping the mirtazapine could be playing a factor as well and this should be considered as a 2nd potential factor in your symptoms. Please call your primary care provider this morning and make an appointment for next week. This will be specifically to recheck your mood medications and delirium. You do need to use a walker around the house as we discussed. Please brings paperwork with you to your follow-up appointment. Activity Level: Activity as Tolerated Discharge Diet: Regular Prescriptions: No Action atorvastatin 40 mg tablet 40 mg PO HS carvedilol 25 mg tablet 25 mg PO Q12H clonazepam 1 mg tablet 1 mg PO HS clonidine HCl 0.1 mg tablet 0.1 mg PO BID clopidogrel 75 mg tablet 75 mg PO DAILY famotidine 20 mg tablet 20 mg PO DAILY isosorbide mononitrate 60 mg tablet extended release 24 hr 60 mg PO DAILY lisinopril 20 mg tablet 20 mg PO BID omeprazole 40 mg capsule,delayed release(DR/EC) 40 mg PO DAILY oxybutynin chloride 5 mg tablet extended release 24hr 5 mg PO DAILY potassium chloride 20 mEq tablet extended release 40 meq PO BID tizanidine 4 mg tablet 4 mg PO HS albuterol sulfate 2.5 mg /3 mL (0.083 %) solution for nebulization 2.5 mg inhalation Q6H PRN ipratropium-albuterol 0.5 mg-3 mg(2.5 mg base)/3 mL solution for nebulization 3 ml inhalation QID PRN cholecalciferol (vitamin D3) 25 mcg (1,000 unit) tablet 1,000 unit PO DAILY cyanocobalamin (vitamin B-12) [Vitamin B-12] 1,000 mcg tablet 1,000 mcg PO DAILY nitroglycerin [Nitrostat] 0.4 mg tablet, sublingual 0.4 mg sublingual Q5-15M PRN Rx Instructions: do not exceed 3 doses per episode escitalopram oxalate 10 mg tablet 10 mg PO DAILY hydroxyzine HCl 25 mg tablet 25 mg PO BID PRN (Reason: panic attack) Follow Up/Referrals: Jazmyn Clark DO [Primary Care Provider] - Stand Alone Forms: [facility] Info Instructions
[2022-10-02 04:30] LABS: HCO3 VBG 28 mmol/L (21-28); Lactate* 0.8 mmol/L (0.5-1.9); PCO2 VBG 45 mmHG (40-50); PO2 VBG 41.3 mmHG (25-47); pH VBG 7.392 (7.32-7.43)
[2022-10-02 04:31] LABS: Basophils Absolute Auto 0.01 K/uL (0.00-0.30); Basophils Percent Auto 0.1 % (0.0-3.0); Eosinophils Absolute Auto 0.17 K/uL (0.00-0.50); Eosinophils Percent Auto 1.9 % (0.0-7.0); Hematocrit 34.1 % (37.0-53.0); Hemoglobin* 10.3 gm/dL (13.5-17.5); Immature Granulocytes Abs Auto 0.03 K/uL (0.00-0.30); Immature Granulocytes Pct Auto 0.3 %; Lymphocytes Percent Auto 15.4 % (20-44); Mean Corpuscular HGB Conc 30 gm/dL (32-36); Mean Corpuscular Hemoglobin 23 pg (26-34); Mean Corpuscular Volume 75 fL (80-100); Monocytes Percent Auto 9.3 % (0.0-11.0); Platelet Count* 159 K/uL (140-440); RDW Coefficient of Variation % 18.3 % (11.5-15.5); Red Blood Count 4.54 m/uL (4.30-5.90); White Blood Count* 8.81 K/uL (4.50-11.00)
[2022-10-02 04:32] LABS: Slide Review Reflex No
[2022-10-02 04:41] VITALS: BP 212/119; PULSE 87; RESP 20; O2SAT 93
[2022-10-02 04:44] LABS: Albumin* 4.1 g/dL (3.3-5.0); Chloride* 101 mmol/L (96-114)
[2022-10-02 04:45] LABS: Potassium* 3.9 mmol/L (3.6-5.1); Sodium* 135 mmol/L (135-149)
[2022-10-02 04:47] LABS: Aspartate Amino Transferase* 35 U/L (12-35); Bilirubin Total* 1.1 mg/dL (0.1-1.5); Carbon Dioxide* 28 mmol/L (20-32); Creatinine* 0.9 mg/dL (0.5-1.5); Estimated Glomerular Filt Rate 100 ml/min; Total Protein* 7.4 g/dL (6.0-8.3)
[2022-10-02 04:48] LABS: Alanine Aminotransferase* 42 U/L (4-50); Alkaline Phosphatase* 200 U/L (40-150); Blood Urea Nitrogen* 11 mg/dL (7-30); Calcium* 8.9 mg/dL (8.4-10.6); Glucose* 108 mg/dL (60-115)
[2022-10-02 04:50] LABS: Ethanol* < 0.01 % (0.01-0.03)
[2022-10-02 04:58] LABS: Appearance Urine Clear (Clear); Bilirubin Urine 1+ (Negative); Blood Urine Negative (Negative); Color Urine Yellow (Yellow); Glucose Urine Negative (Negative); Ketones Urine 2+ (Negative); Leukocyte Esterase Urine Negative (Negative); Nitrite Urine Negative (Negative); Protein Urine Negative (Negative); Urobilinogen Urine 0.2 (0.2-1.0); pH Urine 5.5 (5.0-8.5)
[2022-10-02 05:03] VITALS: BP 209/112; PULSE 77; RESP 20; O2SAT 93
[2022-10-02 05:07] LABS: Amphetamine Screen Urine Negative (Negative); Barbiturate Screen Urine Negative (Negative); Benzodiazepines Screen Urine Negative (Negative); Cannabinoid Screen Urine Negative (Negative); Cocaine Screen Urine Negative (Negative); Methadone Screen Urine Negative (Negative); Methamphetamines Screen Urine Negative (Negative); Opiate Screen Urine Negative (Negative); Phencyclidine Screen Urine Negative (Negative); Tricyclic Antidepressant Urine Negative (Negative)
[2022-10-02 05:09] LABS: Oxycodone Screen Urine POSITIVE (Negative)
== END 2022-10-02 05:38 | disposition home or self-care (01) ==
PROVIDERS: Emergency Provider Family Medicine; PCP Family Medicine
DX: F19.921 Other psychoactive substance use, unspecified with intoxication with delirium (principal)
CPT/HCPCS: 36415; 70450; 80053; 80306; 81003; 82077; 82803; 83605; 84484; 85025; 93005; 99284; 99285

== ENCOUNTER 2023-01-04 09:52 | Outpatient (CLI) | payer MEDICARE, SELFPAY ==
--- OUTSIDE RECORDS SUMMARY | 2023-01-04 09:55 | XMS_ITS | Continuity of Care Document ---
Author Name Unknown Organization [facility] Address [address] [place] [address] Phone Care Team Providers Care Manager Transportation Planning Name Role Phone Azael Rodgers MD Unavailable Unavailable Medications Medication Instructions Dosage Effective Dates (start - stop) Status Comments VITAMIN D3 (unknown strength) Not Available - Active METOPROLOL TARTRATE (unknown strength) Not Available - Active OMEPRAZOLE (unknown strength) Not Available - Active TIZANIDINE HCL (unknown strength) Not Available - Active CLONAZEPAM (unknown strength) Not Available - Active POTASSIUM (unknown strength) Not Available - Active ASPIRIN (unknown strength) Not Available - Active AMLODIPINE BESYLATE (unknown strength) Not Available - Active MELOXICAM (unknown strength) Not Available - Active GLYCOPYRROLATE (unknown strength) Not Available - Active SERTRALINE HCL (unknown strength) Not Available - Active FUROSEMIDE (unknown strength) Not Available - Active LORAZEPAM (unknown strength) Not Available - Active Procedures Procedure Date Office/Outpatient Visit,[facility] 2014 Advance Directives Directive Yes / No Effective Date File Name No Information Encounters Encounter Description Practice Location Reason(s) For Visit Diagnoses Date Provider Providers Copied on Encounter [facility], [address], [place], [id number], [place] tel:[phone] [facility] No Information 6 Mehbod Amir. [facility], [address], [place], [place], [id number] , [place]. tel:[phone] Office/Outpat ient Visit,[facility], [address], [place], [id number], [place] tel:[phone] [facility] No Information 5 Mehbod Amir. [facility], [address], [place], [place], [id number] , [place]. tel:[phone] Family History Family Member Type Diagnosis Age At Onset Problem (finding) Payers Payer name Insurance type Covered democrat ID Authoriza tion(s) Medicare MB [id number] Social History Type Description Quantity Date Captured Comments Sex Male Smoking Status No Information Chief Complaint And Reason For Visit No Information Reason For Referral Reason For Referral No Information History Of Present Illness Encounter Date Complaint History Of Prese nt Illness No Information Functional Status Date Functional Assessmen t No Information Instructions Date Instruction Additional Infor mation No Information Assessments Type Assessment Date No Information Patient Care Teams Name Effective Dates (start - stop) Status Members No Information
== END 2023-01-04 09:53 | disposition home or self-care (01) ==
LOC: INJ CL 09:53
PROVIDERS: PCP Family Medicine; Visit Provider Family Medicine
DX: M51.36 Other intervertebral disc degeneration, lumbar region (principal); M54.16 Radiculopathy, lumbar region
CPT/HCPCS: 62323; J0702; Q9966

== ENCOUNTER 2023-03-20 11:54 | Emergency (ER) | payer MEDICARE, SELFPAY ==
[2023-03-20 12:10] VITALS: BP 182/101; PULSE 70; RESP 20; TEMP 37.1; O2SAT 98; BMI 46.6
[2023-03-20 13:29] VITALS: PULSE 70; O2SAT 98
[2023-03-20 13:30] VITALS: PULSE 71; O2SAT 98
[2023-03-20 13:32] VITALS: BP 145/94; PULSE 71; O2SAT 98
[2023-03-20 13:45] VITALS: PULSE 74; O2SAT 99
--- NOTE | 2023-03-20 13:47 | ED.GENADULT ---
HPI - General Adult General Time Seen by Provider: 13:47 Date Seen: 03/20/23 Chief complaint: Hypertension Stated complaint: High BP Time Seen by Provider: 03/20/23 12:10 Source: patient Mode of arrival: wheelchair Limitations: physical limitation History of Present Illness HPI narrative: 57-year-old male who has sleep apnea is on 3 L home oxygen he has other medical issues he is followed by [facility]. The patient is getting iron infusions, during his iron infusion today noted blood pressure was in the 220/120 range. He was asymptomatic he was sent to the emergency department. He has no chest pain, breathing problem, neurologic complaints he took his medicine little later than normal today because he woke up a little later. Related Data Home Medications Medication Instructions Recorded Confirmed albuterol sulfate 2.5 mg/3 mL 2.5 mg inhalation Q6H PRN 05/22/22 09/22/22 (0.083 %) solution for nebulization atorvastatin 40 mg tablet 40 mg PO HS 05/22/22 09/22/22 carvedilol 25 mg tablet 25 mg PO Q12H 05/22/22 09/22/22 cholecalciferol (vitamin D3) 25 1,000 unit PO DAILY 05/22/22 09/22/22 mcg (1,000 unit) tablet clonazepam 1 mg tablet 1 mg PO HS 05/22/22 09/22/22 clonidine HCl 0.1 mg tablet 0.1 mg PO BID 05/22/22 09/22/22 clopidogrel 75 mg tablet 75 mg PO DAILY 05/22/22 09/22/22 cyanocobalamin (vitamin B-12) 1,000 mcg PO DAILY 05/22/22 09/22/22 1,000 mcg tablet (Vitamin B-12) famotidine 20 mg tablet 20 mg PO DAILY 05/22/22 09/22/22 ipratropium 0.5 mg-albuterol 3 mg 3 ml inhalation QID PRN 05/22/22 09/22/22 (2.5 mg base)/3 mL nebulization soln isosorbide mononitrate 60 mg 60 mg PO DAILY 05/22/22 09/22/22 tablet,extended release 24 hr lisinopril 20 mg tablet 20 mg PO BID 05/22/22 09/22/22 nitroglycerin 0.4 mg sublingual 0.4 mg sublingual Q5-15M PRN 05/22/22 09/22/22 tablet (Nitrostat) omeprazole 40 mg capsule,delayed 40 mg PO DAILY 05/22/22 09/22/22 release oxybutynin chloride 5 mg 5 mg PO DAILY 05/22/22 09/22/22 tablet,extended release 24 hr potassium chloride 20 mEq 40 meq PO BID 05/22/22 09/22/22 tablet,extended release tizanidine 4 mg tablet 4 mg PO HS 05/22/22 09/22/22 escitalopram oxalate 10 mg tablet 10 mg PO DAILY 09/22/22 09/22/22 hydroxyzine HCl 25 mg tablet 25 mg PO BID PRN panic attack 09/22/22 09/22/22 Allergies Allergy/AdvReac Type Severity Reaction Status Date / Time methylprednisolone Allergy Intermediate Insomnia Verified 10/01/22 13:24 [From Medrol] acetaminophen [From Percocet] Allergy Verified 10/01/22 13:24 citalopram [From Celexa] Allergy Verified 10/01/22 13:24 diphenhydramine Allergy Verified 10/01/22 13:24 [From Benadryl] morphine Allergy Verified 10/01/22 13:24 oxycodone [From Percocet] Allergy Verified 10/01/22 13:24 Review of Systems Status of ROS: Reports: 6 or more systems reviewed and unremarkable except as noted in History and below [facility] Medical History On home oxygen therapy ?Z99.81 - Dependence on supplemental oxygen (ICD-10) Post-viral cough syndrome ?R05.8 - Other specified cough (ICD-10) Acute respiratory failure with hypoxia ?J96.01 - Acute respiratory failure with hypoxia (ICD-10) 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 - Dependent personality disorder (ICD-10) Borderline personality disorder ?F60.3 - Borderline personality disorder (ICD-10) Major depressive disorder, recurrent episode, moderate ?F33.1 - Major depressive disorder, recurrent, moderate (ICD-10) Panic disorder without agoraphobia ?F41.0 - Panic disorder [episodic paroxysmal anxiety] (ICD-10) Bone island ?M89.8X9 - Other specified disorders of bone, unspecified site (ICD-10) DDD (degenerative disc disease) Pneumonia due to severe acute respiratory syndrome coronavirus 2 (SARS-CoV-2) ?U07.1 - COVID-19 (ICD-10) ?J12.82 - Pneumonia due to coronavirus disease 2019 (ICD-10) Microcytic anemia ?D50.9 - Iron deficiency anemia, unspecified (ICD-10) Adenomatous colon polyp ?D12.6 - Benign neoplasm of colon, unspecified (ICD-10) Dental infection ?K04.7 - Periapical abscess without sinus (ICD-10) GERD (gastroesophageal reflux disease) ?K21.9 - Gastro-esophageal reflux disease without esophagitis (ICD-10) Adrenal adenoma ?D35.00 - Benign neoplasm of unspecified adrenal gland (ICD-10) Acute hypoxemic respiratory failure ?J96.01 - Acute respiratory failure with hypoxia (ICD-10) Acute idiopathic gout ?M10.00 - Idiopathic gout, unspecified site (ICD-10) Vitamin D deficiency ?E55.9 - Vitamin D deficiency, unspecified (ICD-10) Arteriosclerotic cardiovascular disease ?I25.10 - Atherosclerotic heart disease of [place] coronary artery without angina pectoris (ICD-10) ACS (acute coronary syndrome) ?I24.9 - Acute ischemic heart disease, unspecified (ICD-10) Hypertension ?I10 - Essential (primary) hypertension (ICD-10) Social History Smoking Status: Former smoker How often do you have a drink containing alcohol: never AUDIT-C Alcohol total score: 0 Non-prescribed substance use: denies use Exam Narrative: Exam Narrative: Objective: Blood pressure 182/101 retested 150/94. Afebrile Patient is asymptomatic he has no complaints Heart rhythm regular occasional ectopic beat no murmur, abdomen benign obese nontender, extremities /neurologic nonfocal. Good peripheral perfusion noted Const: Vital Signs, click to edit/add: Vital Signs - 24 hr 03/20/23 12:10 03/20/23 13:29 03/20/23 13:30 Temperature 98.7 F Pulse Rate 70 71 Pulse Rate [Right Pulse Oximeter] 70 Respiratory Rate 20 Blood Pressure Blood Pressure [Ri ght Upper Arm] 182/101 H Pulse Oximetry 98 98 98 Oxygen Delivery Me thod Nasal Cannula 03/20/23 13:32 03/20/23 13:45 Temperature Pulse Rate 71 74 Pulse Rate [Right Pulse Oximeter] Respiratory Rate Blood Pressure 145/94 H Blood Pressure [Ri ght Upper Arm] Pulse Oximetry 98 99 Oxygen Delivery Me thod Course Vital Signs Vital signs: Initial Vital Signs Temperature 98.7 F 03/20/23 12:10 Temperature Source Temporal Artery Scan 03/20/23 12:10 Pulse Rate 70 03/20/23 12:10 Respiratory Rate 20 03/20/23 12:10 Blood Pressure 182/101 H 03/20/23 12:10 Blood Pressure Mean 128 H 03/20/23 12:10 Blood Pressure Position Sitting 03/20/23 12:10 Pulse Oximetry 98 03/20/23 12:10 Oxygen Delivery Method Nasal Cannula 03/20/23 12:10 Vital Signs Temperature 98.7 F 03/20/23 12:10 Pulse Rate 70 03/20/23 12:10 Respiratory Rate 20 03/20/23 12:10 Blood Pressure 182/101 H 03/20/23 12:10 Pulse Oximetry 98 03/20/23 12:10 Oxygen Delivery Method Nasal Cannula 03/20/23 12:10 Temperature 98.7 F 03/20/23 12:10 Pulse Rate 74 03/20/23 13:45 Respiratory Rate 20 03/20/23 12:10 Blood Pressure 145/94 H 03/20/23 13:32 Pulse Oximetry 99 03/20/23 13:45 Oxygen Delivery Method Nasal Cannula 03/20/23 12:10 Medical Decision Making MDM Narrative Medical decision making narrative: [age] year white male with multiple medical issues on chronic oxygen, who had elevated blood pressure table getting an iron transfusion now is blood pressure is markedly better he has no symptoms. He does not wish any workup. Middle him go home at this time to continue his same medications and follow up with regular doctor as nee continue to monitor his blood pressure on a regular basis preps daily at least over the next week or so. Discharge Plan Discharge Clinical Impression: Elevated blood pressure reading Patient Disposition: Home w/ Parent or Adult Condition: Stable Additional Instructions: Blood pressure has normalized nicely, would recommend observation, daily checking the blood pressure. Update regular doctor next few days, return to ED as needed. Activity Level: No Restrictions Discharge Diet: Low Fat/Low Cholesterol Prescriptions: No Action atorvastatin 40 mg tablet 40 mg PO HS carvedilol 25 mg tablet 25 mg PO Q12H clonazepam 1 mg tablet 1 mg PO HS clonidine HCl 0.1 mg tablet 0.1 mg PO BID clopidogrel 75 mg tablet 75 mg PO DAILY famotidine 20 mg tablet 20 mg PO DAILY isosorbide mononitrate 60 mg tablet extended release 24 hr 60 mg PO DAILY lisinopril 20 mg tablet 20 mg PO BID omeprazole 40 mg capsule,delayed release(DR/EC) 40 mg PO DAILY oxybutynin chloride 5 mg tablet extended release 24hr 5 mg PO DAILY potassium chloride 20 mEq tablet extended release 40 meq PO BID tizanidine 4 mg tablet 4 mg PO HS albuterol sulfate 2.5 mg /3 mL (0.083 %) solution for nebulization 2.5 mg inhalation Q6H PRN ipratropium-albuterol 0.5 mg-3 mg(2.5 mg base)/3 mL solution for nebulization 3 ml inhalation QID PRN cholecalciferol (vitamin D3) 25 mcg (1,000 unit) tablet 1,000 unit PO DAILY cyanocobalamin (vitamin B-12) [Vitamin B-12] 1,000 mcg tablet 1,000 mcg PO DAILY nitroglycerin [Nitrostat] 0.4 mg tablet, sublingual 0.4 mg sublingual Q5-15M PRN Rx Instructions: do not exceed 3 doses per episode escitalopram oxalate 10 mg tablet 10 mg PO DAILY hydroxyzine HCl 25 mg tablet 25 mg PO BID PRN (Reason: panic attack) Follow Up/Referrals: Jazmyn Clark DO [Primary Care Provider] - Stand Alone Forms: [facility] [place] Info Instructions
--- OUTSIDE RECORDS SUMMARY | 2023-03-20 13:55 | XMS_ITS | Continuity of Care Document ---
Author Name Unknown Organization [facility] Address [address] [place] [address] Phone Care Team Providers Care Slurry Control Operator Helper Name Role Phone Azael Rodgers MD Unavailable Unavailable Medications Medication Instructions Dosage Effective Dates (start - stop) Status Comments LORAZEPAM (unknown strength) Not Available - Active FUROSEMIDE (unknown strength) Not Available - Active SERTRALINE HCL (unknown strength) Not Available - Active GLYCOPYRROLATE (unknown strength) Not Available - Active MELOXICAM (unknown strength) Not Available - Active AMLODIPINE BESYLATE (unknown strength) Not Available - Active ASPIRIN (unknown strength) Not Available - Active POTASSIUM (unknown strength) Not Available - Active CLONAZEPAM (unknown strength) Not Available - Active TIZANIDINE HCL (unknown strength) Not Available - Active OMEPRAZOLE (unknown strength) Not Available - Active METOPROLOL TARTRATE (unknown strength) Not Available - Active VITAMIN D3 (unknown strength) Not Available - Active Procedures Procedure Date Office/Outpatient Visit,[facility] 2014 Advance Directives Directive Yes / No Effective Date File Name No Information Encounters Encounter Description Practice Location Reason(s) For Visit Diagnoses Date Provider Providers Copied on Encounter [facility], [address], [place], [id number], [place] tel:[phone] [facility] No Information 6 Mehbod Amir. [facility], [address], [place], [place], [id number] , [place]. tel:[phone] Office/Outpat ient Visit,[facility], [address], [place], [id number], tel:[phone] [facility] No Information 5 Mehbod Amir. [facility], [address], [place], [place], [id number] , [place]. tel:[phone] Family History Family Member Type Diagnosis Age At Onset Problem (finding) Payers Payer name Insurance type Covered republican ID Authoriza tion(s) Medicare MB [id number] Social History Type Description Quantity Date Captured [...]
== END 2023-03-20 14:04 | disposition home or self-care (01) ==
LOC: ED 13:53
PROVIDERS: Emergency Provider Family Medicine; PCP Family Medicine
DX: I10 Essential (primary) hypertension (principal)
CPT/HCPCS: 99283

== ENCOUNTER 2023-05-16 10:57 | Outpatient (CLI) | payer MEDICARE, SELFPAY ==
--- NOTE | 2023-05-16 11:00 | CRLHL7_ITS ---
For Patients: As a result of the Century Cures Act, medical imaging exams and procedure reports are released immediately into your electronic medical record. You may view this report before your referring provider. If you have questions, please contact your health care provider. INDICATION: ASHD TECHNIQUE: Grayscale, color Doppler and power Doppler ultrasound of the kidneys and renal arteries performed. COMPARISON: CT PE study 12/31/2020 FINDINGS: BILATERAL RENAL ARTERY DUPLEX ULTRASOUND ABDOMINAL AORTA: Peak systolic velocity = 105 cm/s. No aortic aneurysm. RIGHT KIDNEY: 13.8 cm in length. There is no hydronephrosis. Peak systolic velocity = 120 cm/second Renal artery to aortic peak systolic velocity ratio = 1.1 Resistive indices: 0.7 Renal vein = patent LEFT KIDNEY: 12.0 cm in length. There is no hydronephrosis. Peak systolic velocity = 82 cm/second Renal artery to aortic peak systolic velocity ratio = 0.78 Resistive indices: 0.68 Renal vein = patent IMPRESSION: No evidence of significant renal artery stenosis. Dictated by Fernnadez Reinoso MD @ 05/16/2023 3:19:21 PM (Electronically Signed)
--- OUTSIDE RECORDS SUMMARY | 2023-05-16 11:07 | XMS_ITS | Clinical Summary ---
Author Name Unknown Organization [facility] Address [address] [facility] [address] [place] [address] Care Team Providers Care Cash Applications Coordinator Name Role Phone Jazmyn Clark Primary Care Provider Unav ailable Encounters Date Type Department Care Team Description 04/30/2023 Documentation Only [facility] [address] [phone] No, Pcp from Last 3 Months Social History Tobacco Use Types Packs/Day Years Used Date Smoking Tobacco: Never Assessed Sex and Gender Information Value Date Recorded Sex Assigned at Not on file Gender Identity Not on file Sexual Orientation Not on file Plan of Treatment Upcoming Encounters Date Type Department Care Team Description 05/22/2023 10:00 AM EST Office Visit [facility] [address] [phone] Jimmy Leonard MD [address] [place] [phone] Health Maintenance Due Date Last Done Comments Hepatitis B Vaccine (1 of 3 - 3-dose series) 1965 Colorectal Cancer Screening: Annual FOBT 2014 Colorectal Cancer Screening: Colonoscopy 2014 Colorectal Cancer Screening: Sigmoidoscopy 2014 Influenza Vaccine (#1) 2022 2, 02/22/2021, 12/27/2015, Additional history exists Pneumococcal Vaccine: Pediatrics (0 to 5 Years) and At-Risk Patients (6 to 64 Years) Aged Out No longer eligible based on patient's age to complete this topic Care Teams Cash Applications Coordinator Relationship Specialty Start Date End Date Jazmyn Clark DO [address] [place] [address] PCP - General Family Medicine 04/30/23
--- OUTSIDE RECORDS SUMMARY | 2023-05-16 11:07 | XMS_ITS | Encounter Summary ---
Author Name Unknown Organization [facility] Address [address] [facility] [address] [place] [address] Care Team Providers Care Audiovisual Aids Technician Name Role Phone Jazmyn Clark DO Primary Care Provider Unav ailable Encounter Details Date Type Department Care Team Description 04/30/2023 Documentation Only [facility] [address] [facility] [address] [place] [phone] No, Pcp Social History Tobacco Use Types Packs/Day Years Used Date Smoking Tobacco: Never Assessed Sex and Gender Information Value Date Recorded Sex Assigned at Not on file Gender Identity Not on file Sexual Orientation Not on file documented as of this encounter Plan of Treatment Upcoming Encounters Date Type Department Care Team Description 05/22/2023 10:00 AM EST Office Visit [facility] [address] [facility] [address] [place] [phone] Jimmy Leonard MD [address] [place] [phone] documented as of this encounter Visit Diagnoses Not on filedocumented in this encounter Care Teams Audiovisual Aids Technician Relationship Specialty Start Date End Date [place] [address] PCP - General Family Medicine 04/30/23 documented as of this encounter
--- OUTSIDE RECORDS SUMMARY | 2023-05-16 11:07 | XMS_ITS | Clinical Summary ---
Author Name Unknown Organization [facility] Address [place], [place] [address] Care Team Providers Care Matrix Supervisor Name Role Phone Eddie Moulton MD Unavailable Diego Walker MD Unavailable [phone] Jazmyn Clark DO Primary Care Provider Allergies Active Allergy Reactions Criticality Noted Date Comments Diphenhydramine *Unknown 03/24/2012 Citalopram 11/08/2005 ineffective Methylprednisolone Insomnia 03/25/2019 Morphine Other - Describe In Comment Field High 04/06/2014 Oxycodone-Acetaminophen Hallucinations High 02/09/20 22 per report messes with my head Thiazides Other - Describe In Comment Field 05/12/2023 HCTZ/Chlorthalido ne both decrease K and increase his creatinine historically. Medications Medication Sig Dispensed Refills Start Date End Date Status cholecalciferol (VITAMIN D) 1,000 unit capsule Take 1 capsule by mouth once daily. 0 08/01/19 18 Active oxygen-air delivery systems (HOME OXYGEN)Indications :Acute hypoxemic respiratory failure due to COVID-19 (HC),Acute respiratory failure with hypoxia (HC) Oxygen for home use. Liters per minute: 2 L 0xygen per oxy mask at rest, 10 liters 0xygen per oxymask with activity. Frequency of use: Continuous with portability.;. Length of need: 99 Months. 1 Device 0 04/27/19 21 Active NebulizerIndicatio ns:COVID-19 long hauler,On home oxygen therapy Nebulizer, disposable neb kit x 4, reuseable neb kit x 1, mask x 1, filters x 1. Frequency of use: daily; Medication: duoneb Length of need: 99 months 1 Each 0 01/12/20 21 Active CPAPIndications:OS A (obstructive sleep apnea) New CPAP machine for home use at pressure: 9-18 cm with 4L O2 bled into line , Heated humidifier x 1 q 5 yr, Humidifier chamber x 1 q 6 mo, Full face mask x1 q 3mos, with cushion x 1 q mo, Heated tubing x 1 q 3 mo, Headgear x 1 q 6 mo, Filters: Disposable x 2 q mo non-disposable filters x1 q 6mo, Length of Need: 99 months, Frequency of use: Daily 1 Each 11 01/26/20 21 Active cyanocobalamin (Vitamin B-12) 1,000 mcg tabletIndications: Low vitamin B12 level Take 1 Tablet (1,000 mcg) by mouth once daily. 90 Tablet 3 11/21/19 22 Active atorvastatin (LIPITOR) 40 mg tabletIndications: Mixed hyperlipidemia TAKE 1 TABLET BY MOUTH ONCE DAILY 100 Tablet 3 09/04/19 23 Active nitroglycerin (NITROSTAT) 0.4 mg sublingual tabletIndications: Acute PR, inferior wall (HC) Place 1 Tablet (0.4 mg) under the tongue every 5 minutes if needed for Chest Pain (up to 3 doses). 25 Tablet 5 10/02/19 23 Active clonazePAM (KLONOPIN) 1 mg tabletIndications: Sleep disorder Take 1 Tablet (1 mg) by mouth at bedtime. 10 Tablet 0 10/16/19 23 Active omeprazole (PRILOSEC) 40 mg Delayed-Release capsuleIndications :Upper GI bleed TAKE 1 CAPSULE BY MOUTH ONCE DAILY BEFORE A MEAL 90 Capsule 3 10/23/19 23 Active Vitamin D2 1,250 mcg (50,000 unit) capsuleIndications :Vitamin D deficiency TAKE 1 CAPSULE BY MOUTH EVERY SATURDAY AND SATURDAY 29 Capsule 2 11/15/19 23 Active famotidine (PEPCID) 20 mg tabletIndications: Gastroesophageal reflux disease without esophagitis TAKE 1 TABLET BY MOUTH TWICE DAILY 200 Tablet 2 11/14/19 23 Active escitalopram oxalate (LEXAPRO) 10 mg tabletIndications: Major depressive disorder, recurrent episode, moderate (HC),Anxiety Take 2 Tablets (20 mg) by mouth every morning. 180 Tablet 3 12/20/19 23 Active escitalopram oxalate (LEXAPRO) 10 mg tabletIndications: Major depressive disorder, recurrent episode, moderate (HC),Anxiety Take 2 Tablets (20 mg) by mouth every morning. 28 Tablet 0 12/20/19 23 Active mirtazapine (REMERON) 15 mg tabletIndications: Sleep pattern disturbance Take 1 Tablet (15 mg) by mouth at bedtime. 90 Tablet 3 01/09/20 23 Active tiZANidine (ZANAFLEX) 4 mg tabletIndications: DDD (degenerative disc disease), lumbar TAKE 1 TABLET BY MOUTH EVERY 6 HOURS NEEDED FOR MUSCLE SPASM(S) 90 Tablet 1 01/15/20 23 Active isosorbide mononitrate (IMDUR) 60 mg extended release tablet 24 hourIndications:Ar teriosclerotic heart disease (ASHD) TAKE 1 TABLET BY MOUTH ONCE DAILY 100 Tablet 0 02/11/20 23 Active isosorbide mononitrate (IMDUR) 60 mg extended release tablet 24 hourIndications:HT N (hypertension) Take 2 Tablets (120 mg) by mouth once daily. 180 Tablet 3 02/21/20 23 Active potassium chloride (K-TAB) 20 mEq extended-release tabletIndications: Hypokalemia TAKE 2 TABLETS BY MOUTH TWICE DAILY WITH MEALS 400 Tablet 3 03/11/20 23 Active clonazePAM (KLONOPIN) 1 mg tabletIndications: Sleep disorder TAKE 1 TABLET BY MOUTH AT BEDTIME 90 Tablet 1 04/17/19 24 Active lisinopriL (PRINIVIL; ZESTRIL) 20 mg tabletIndications: HTN (hypertension) TAKE 1 TABLET BY MOUTH TWICE DAILY 200 Tablet 0 04/15/19 24 Active oxybutynin XL (DITROPAN XL) 5 mg CR tabletIndications: Urine frequency TAKE 1 TABLET BY MOUTH ONCE DAILY 100 Tablet 1 04/15/19 24 Active cloNIDine HCL (CATAPRES) 0.1 mg tabletIndications: HTN (hypertension) TAKE 1 TABLET BY MOUTH TWICE DAILY 200 Tablet 0 04/15/19 24 Active clopidogreL (PLAVIX) 75 mg tabletIndications: Acute PR, inferior wall (HC) TAKE 1 TABLET BY MOUTH IN THE MORNING 100 Tablet 2 05/12/19 24 Active carvediloL (COREG) 25 mg tabletIndications: HTN (hypertension),Art eriosclerotic heart disease (ASHD) TAKE 1 TABLET BY MOUTH TWICE DAILY WITH MEALS 200 Tablet 2 05/12/19 24 Active hydrOXYzine HCL (ATARAX) 25 mg tabletIndications: Anxiety disorder due to general medical condition with panic attack Take 1 tablet by mouth up to twice daily for panic attacks only. 0 05/12/19 24 Active amLODIPine (NORVASC) 5 mg tabletIndications: ASHD (arteriosclerotic heart disease),HTN (hypertension) Take 1 Tablet (5 mg) by mouth once daily. 90 Tablet 3 05/14/19 24 Active amLODIPine (NORVASC) 5 mg tabletIndications: HTN (hypertension) Take 1 Tablet (5 mg) by mouth once daily. 30 Tablet 1 05/14/19 24 Active albuterol-ipratrop ium (DUONEB) (2.5-0.5 mg) in 3 mL NEBULIZATION solutionIndication s:COVID-19 antonio bertinreginaldo,On home oxygen therapy Inhale 3 mL via a nebulizer 3 times daily. 360 mL 1 01/12/20 21 024 Discontinued(*M ed complete/Regime n complete/Level of care change) albuterol (PROVENTIL) 0.083 % neb solution inhale 3 milliliter by nebulization route EVERY 4H PRN DYSPNEA BY NEBULISER.; PRN UP TO QID FOR COUGH. # 3 BOXES. 0 06/21/19 22 024 Discontinued(*M ed complete/Regime n complete/Level of care change) hydrOXYzine HCL (ATARAX) 25 mg tabletIndications: Anxiety disorder due to general medical condition with panic attack Take 1 tablet by mouth up to twice daily for panic attacks only. 30 Tablet 2 09/15/19 23 024 Discontinued(*M edication adjustment) clopidogreL (PLAVIX) 75 mg tabletIndications: Acute PR, inferior wall (HC) TAKE 1 TABLET BY MOUTH IN THE MORNING 100 Tablet 2 09/19/19 23 024 Discontinued clonazePAM (KLONOPIN) 1 mg tabletIndications: Sleep disorder Take 1 Tablet (1 mg) by mouth at bedtime. 30 Tablet 5 10/17/19 23 024 Discontinued carvediloL (COREG) 25 mg tabletIndications: HTN (hypertension),Art eriosclerotic heart disease (ASHD) TAKE 1 TABLET BY MOUTH TWICE DAILY WITH MEALS 200 Tablet 0 03/11/20 23 024 Discontinued chlorthalidone (HYGROTON) 25 mg tabletIndications: Uncontrolled hypertension Take 1 Tablet (25 mg) by mouth once daily. 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 Most recent finding 2020 1.4 cm. Bone island 05/31/2020 Overview: Previous images show this are to be a bone island at T3. History of COVID-19 05/04/2020 Post-viral cough syndrome 04/23/2020 Debility following prolonged hospitalization for COVID-19 04/22/2020 Arteriosclerotic heart disease (ASHD) 11/19/2017 Overview: - 11/18/17 acute PR, AMILCAR x 2 to RCA ACS (acute coronary syndrome) 11/18/2017 Dental infection 11/18/2017 Adenomatous colon polyp 04/19/2016 Overview: Colonoscopy 04/2016 polyps repeat in 5 years Morbid obesity with BMI of 40.0-44.9, adult 04/2015 Acute idiopathic gout 06/29/2015 DDD (degenerative disc disease), lumbar 07/09/19 15 Dependent personality disorder 11/27/2012 Borderline personality disorder 11/26/2012 Vitamin D deficiency 03/07/2012 Imbalance 08/02/2011 Panic disorder without agoraphobia 06/19/2011 Major depressive disorder, recurrent episode, mo derate 06/19/2011 Esophageal reflux 11/08/2005 Unspecified essential hypertension 11/08/2005 Resolved Problems Problem Noted Date Diagnosed Date Resolved Date PMR (polymyalgia rheumatica) 01/09/2022 09/05/2022 Acute hypoxemic respiratory failure due to COVID-19 03/30/2020 12/20/2022 Acute respiratory failure with hypoxia 03/24/2020 12/20/2022 HYPERTENSION 11/27/2012 01/23/2014 Unspecified essential hypertension 01/15/2007 05/06/2012 Overview: negative stress test [place] Esophageal reflux 01/15/2007 05/19/2011 Overview: esophagitis on EGD Calculus of gallbladder with out mention of cholecystitis or obstruction 01/15/2007 01/23/2014 Unspecified drug dependence, unspecified 11/08/2005 08/04/2017 Overview: Quit drinking 11/19 cardiac 1999 05/19/2011 Overview: negative stress test Encounters Date Type Department Care Team Description 05/15/2023 1:00 PM SOLAR SYSTEM INSTALLER Telemedicine [facility] [address] [place] [address] Belgica Mosley PsyD, ROXI Telehealth 05/14/2023 11:00 AM SOLAR SYSTEM INSTALLER Office Visit [facility] [address] [place] [address] Valorie Andrade MD CV General Cardiology New (Pt c/o BP not being well controlled, over 200 at times. SOB, pt had COVID-19 3 years ago, has been on oxygen since. Pt has not been physically active. Nuc stress test scheduled for May 28. ) 05/14/2023 Telephone [facility] [address] [place] [address] Valorie Andrade MD Questions 05/14/2023 Travel 05/10/2023 11:05 AM SOLAR SYSTEM INSTALLER Office Visit [facility] [address] [place] [address] Jazmyn Clark, DO Follow Up (meds-BP) 05/10/2023 Telephone [facility] [address] [place] [address] Jazmyn Clark, Letter 05/10/2023 Travel 05/09/2023 Refill [facility] [address] [place] [address] Jazmyn Clark DO Refill Request (Clopidogrel, Carvedilol, CHLORTHALIDONE) 05/02/2023 2:00 PM SOLAR SYSTEM INSTALLER Telemedicine [address] [address] Belgica Mosley PsyD, ROXI Phone Visit 04/25/2023 2:00 PM SOLAR SYSTEM INSTALLER Phone Office Visit [address] [address] Belgica Mosley PsyD, ROXI Phone Visit 04/25/2023 10:50 AM SOLAR SYSTEM INSTALLER Office Visit [facility] [address] [place] [address] Lissette Wu MD Blood Pressure; Nose Problem (pain in upper nasal passage, not congested) 04/25/2023 Travel 04/18/2023 2:00 PM SOLAR SYSTEM INSTALLER Telemedicine [address] [address] Belgica Mosley PsyD, ROXI Telehealth 04/18/2023 Travel 04/12/2023 Refill [facility] [address] [place] [address] Jazmyn Clark DO Refill Request (Clonazepam, Lisinopril, Oxybutynin Xl, Clonidine Hcl) 04/05/2023 11:30 AM SOLAR SYSTEM INSTALLER Office Visit [facility] [address] [place] [address] Jazmyn Clark DO Follow Up; Blood Pressure; Anemia 04/05/2023 Travel 04/04/2023 2:00 PM SOLAR SYSTEM INSTALLER Telemedicine [address] [address] Belgica Mosley PsyD, ROXI Telehealth 03/28/2023 2:00 PM SOLAR SYSTEM INSTALLER Telemedicine [facility] [id number] [place] [address] Belgica Mosley PsyD, ROXI Telehealth 03/22/2023 10:30 AM SOLAR SYSTEM INSTALLER Nurse/Clinic Staff Only [facility] [address] [place] [address] Infusion Therapy (Feraheme (2/2)) 03/22/2023 Telephone [facility] [address] [place] [address] Jazmyn Clark DO Form ([employer] form ) 03/21/2023 2:00 PM SOLAR SYSTEM INSTALLER Telemedicine [address] [address] Belgica Mosley PsyD, ROXI Telehealth 03/21/2023 Travel 03/20/2023 10:30 AM SOLAR SYSTEM INSTALLER Nurse/Clinic Staff Only [facility] [address] [place] [address] Infusion Therapy (Feraheme- unable to infuse, see notes) 03/20/2023 Travel 03/14/2023 2:00 PM SOLAR SYSTEM INSTALLER Telemedicine [address] [address] Belgica Mosley PsyD, ROXI Telehealth; Trmt Plan 03/14/2023 Travel 03/13/2023 10:30 AM SOLAR SYSTEM INSTALLER Nurse/Clinic Staff Only [facility] [address] [place] [address] Infusion Therapy (Feraheme) 03/13/2023 Travel 03/11/2023 Refill [facility] [address] [place] [address] Jazmyn Clark DO Refill Request (Potassium Chloride, Carvedilol) 03/04/2023 Telephone [facility] [address] [place] [address] Christin Bella, senior medical transcriptionist Therapy (Feraheme x [address] Clark) 03/04/2023 Orders Only [facility] [address] [place] [address] Jazmyn Clark DO <No scans attached> 02/28/2023 2:00 PM SOLAR SYSTEM INSTALLER Telemedicine [address] [address] Belgica Mosley PsyD, ROXI Telehealth 02/28/2023 Travel 02/21/2023 2:00 PM SOLAR SYSTEM INSTALLER Telemedicine [address] [address] Belgica Mosley PsyD, ROXI Telehealth 02/21/2023 Travel 02/20/2023 11:30 AM SOLAR SYSTEM INSTALLER Office Visit [facility] [address] [place] [address] Jazmyn Clark DO Hearing Problem (can't hear) 02/20/2023 Travel 02/14/2023 2:00 PM CDT Telemedicine [address] [address] Belgica Mosley PsyD, ROXI Telehealth 02/14/2023 Travel from Last 3 Months Immunizations Name Administration Dates Next Due COVID-19 vaccine (Pfizer-Bio NTech 30mcg/0.3mL) 12YO+ BIVALENT PF, MDV 01/08/2022 COVID-19 vaccine (Pfizer-Bio NTech 30mcg/0.3mL) PF, MDV 02/22/2021,07/23/2020,07/02/2020 Influenza, IIV3 (Age >=3 years) 01/14/2016 Influenza, IIV4 01/08/2022,,02/04/2015,02/09/20 14 Influenza, IIV4 (=>6mos) MDV 12/27/2015 Td (Age >=7 Years) 04/10/2003 Tdap 07/03/2011,11/10/2008 Family History Medical History Relation Name Comments Heart Disease Father CAD Diabetes Other aunts and uncle s Cancer-breast Sister double mastect juan Relation Name Status Comments Father Other Sister Social History Tobacco Use Types Packs/Day Years Used Date Smoking Tobacco: Never Smokeless Tobacco: Never Tobacco Cessation:Counseling Given: Yes Comments:none 05/30/20 Alcohol Use Standard Drinks/Week Comments Not Currently 0 (1 standard drink = 0.6 oz pure alcohol) quit 06/07/2017 restarted drinking, 0-1 drinks a week. PHQ-2 Answer Date Recorded PHQ-2 TOTAL SCORE 6 04/18/2023 Social Connections Answer Date Recorded Frequency of Communication with Friends and Fami ly 0 02/20/2023 Financial Resource Strain Answer Date R ecorded Difficulty of Paying Living Expenses 3 02/20/2023 Difficulty of Paying Living Expenses Not on file 02/20/2023 Food Insecurity Answer Date Recorded Worried About Running Out of Food in the Last Ye ar 1 02/20/2023 Transportation Needs Answer Date Record ed Lack of Transportation (Medical) 1 02/20/2023 Housing Stability Answer Date Recorded Unable to Pay for Housing in the Last Year 1 02/20/2023 Sex and Gender Information Value Date Recorded Sex Assigned at Not on file Gender Identity Not on file Sexual Orientation Not on file Obstetrics History Last Filed Vital Signs Vital Sign Reading Time Taken Comments Blood Pressure 162/86 05/14/2023 10:57 AM SOLAR SYSTEM INSTALLER Pulse 65 05/14/2023 10:57 AM SOLAR SYSTEM INSTALLER Temperature 37 ??C (98.6 ??F) 12/21/2022 10:57 AM CDT Respiratory Rate 18 11/14/2022 11:48 AM CDT Oxygen Saturation 99% 05/14/2023 10:57 AM SOLAR SYSTEM INSTALLER on 6L of o2 Inhaled Oxygen Concentration - - Weight 128.4 kg (283 lb) 05/14/2023 10:57 AM SOLAR SYSTEM INSTALLER Height 167.6 cm (5' 6) 05/14/2023 10:57 AM SOLAR SYSTEM INSTALLER Body Mass Index 45.68 05/14/2023 10:57 AM SOLAR SYSTEM INSTALLER Plan of Treatment Upcoming Encounters Date Type Department Care Team (Late st Contact Info) Description 05/17/2023 2:00 PM SOLAR SYSTEM INSTALLER Appointment [facility] [address] [place] [address] 05/21/2023 3:00 PM SOLAR SYSTEM INSTALLER Orders Only [address] [place] [address] Lab, [place] 05/22/2023 4:00 PM SOLAR SYSTEM INSTALLER Telemedicine [address] [address] Belgica Mosley, [place] [id number] [place] [address] 05/28/2023 3:00 PM SOLAR SYSTEM INSTALLER Ancillary Procedure [facility] [address] [place] [address] 05/29/2023 9:30 AM SOLAR SYSTEM INSTALLER Procedure Only [facility] [address] [place] [address] 05/31/2023 2:00 PM SOLAR SYSTEM INSTALLER Office Visit [facility] [address] [place] [address] 06/05/2023 4:00 PM SOLAR SYSTEM INSTALLER Telemedicine [address] [address] Belgica Mosley PsyD, LP [address] [place] [address] 06/12/2023 1:00 PM SOLAR SYSTEM INSTALLER Telemedicine [address] [address] Belgica Mosley PsyD, LP [address] [place] [address] 06/14/2023 2:30 PM SOLAR SYSTEM INSTALLER Office Visit [facility] & [address] [address] Buck Day MD [address] [address] 06/26/2023 4:00 PM CDT Telemedicine [address] [address] Belgica [place] PsyD[place] [id number] [place] [address] 07/05/2023 11:05 AM CDT Office Visit [facility] [address] [place] [address] Detert, Jazmyn Bright DO [address] [place] [address] 07/17/2023 9:00 AM CDT Telemedicine [address] [address] Bel[place]ica [place] [id number] [place] [address] 07/24/2023 10:00 AM CDT Telemedicine [address] [address] Belgica Mosley PsyD, LP [address] [place] [address] 07/31/2023 9:00 AM CDT Telemedicine [address] [address] [place] [id number] [place] [address] 08/07/2023 9:00 AM CDT Telemedicine [address] [address] Belgica Mosley PsyD, LP [address] [place] [address] 08/14/2023 9:00 AM CDT Telemedicine [place] [address] [place] [address] Belgica Mosley, Danyelle, [place], [place] [id number] Health Maintenance Due Date Last Done Comments Pneumococcal series for age 6-64 (1 of 2 - PCV) 07/16/1971 HIV for age 15-65 1980 Hepatitis C screening for ag e 18-79 07/16/1983 Zoster (shingles) series for age 50+ (1 of 2) 07/16/2015 Tetanus booster 07/02/2021 07/03/2011, 10/14, 04/10/2003 COVID-19 vaccine series ( season) 2022 01/08/2022, 02/22/2021, 07/23/2020, Additional history exists Influenza for age 50-64 12/14/2022 01/09/20, 02/22/2021, 01/14/2016, Additional history exists Depression screening for age 12+ 04/18/2024 04/18/2023, 03/22/2023, 03/22/2023, Additional history exists BMI (ht and wt on same day) for age 18+ 05/14/2024 05/14/2023, 06/29/2020, 03/25/2019, Additional history exists Colonoscopy through age 75 12/09/202512/09, 04/18/2016, 04/18/2016 Lipids for age 45-75 09/06/2027 09/05/2022, 12/07/2019, 01/21/2019, Additional history exists Tdap Completed 07/03/2011, 11/10/2008 Fecal testing non-DNA (FIT,FOBT,iFOBT) for age 45-75 Discontinued 12/04/2020 Goals Goal Patient Goal Type Associated Problems Recent Progress Patient-Stated? Author BLOOD PRESSURE - MAINTAINS BP less than 140/90 Blood Pressure No Jazmyn Clark, DO Procedures Procedure Name Priority Date/Time Associated Diagnosis Comments EKG 12 LEAD Routine 05/14/2023 ASHD (arteriosclerotic heart disease) Anginal equivalent BASIC METABOLIC PANEL Routine 05/10/2023 12:11 PM SOLAR SYSTEM INSTALLER Uncontrolled hypertension CBC WITH AUTO DIFFERENTIAL Routine 04/05/2023 11:03 AM SOLAR SYSTEM INSTALLER Microcytic anemia FERRITIN Routine 04/05/2023 11:03 AM SOLAR SYSTEM INSTALLER Microcytic anemia IRON PLUS IRON BINDING CAP Routine 04/05/2023 11:03 AM SOLAR SYSTEM INSTALLER Microcytic anemia CBC WITH AUTO DIFFERENTIAL Routine 04/05/2023 11:03 AM SOLAR SYSTEM INSTALLER Microcytic anemia CBC WITH AUTO DIFFERENTIAL Routine 02/20/2023 12:38 PM SOLAR SYSTEM INSTALLER Microcytic anemia IRON PLUS IRON BINDING CAP Routine 02/20/2023 12:38 PM SOLAR SYSTEM INSTALLER Microcytic anemia CBC WITH AUTO DIFFERENTIAL Routine 02/20/2023 12:38 PM SOLAR SYSTEM INSTALLER Microcytic anemia FERRITIN Routine 02/20/2023 12:38 PM SOLAR SYSTEM INSTALLER Microcytic anemia BASIC METABOLIC PANEL Routine 02/20/2023 12:38 PM SOLAR SYSTEM INSTALLER HTN (hypertension) from Last 3 Months Results * EKG 12 LEAD (05/14/2023) Valorie Andrade MD EKG ORD * (ABNORMAL) BASIC METABOLIC PANEL (05/10/2023 12:11 PM SOLAR SYSTEM INSTALLER) Only the most recent of2 resultswithin the time period is included. SODIUM 143 136 - 145 mmol/L 05/10/2023 10:05 PM SOLAR SYSTEM INSTALLER [facility] POTASSIUM 3.3(L) 3.5 - 5.1 mmol/L 05/10/2023 10:05 PM SOLAR SYSTEM INSTALLER [facility] CHLORIDE 96(L) 98 - 107 mmol/L 05/10/2023 10:05 PM SOLAR SYSTEM INSTALLER [facility] CO2,TOTAL 38(H) 22 - 29 mmol/L 05/10/2023 10:05 PM [facility] ANION GAP 9 5 - 18 05/10/2023 10:05 PM [facility] GLUCOSE 143(H) 70 - 99 mg/dL 05/10/2023 10:05 PM [facility] CALCIUM 9.1 8.6 - 10.0 mg/dL 05/10/2023 10:05 PM [facility] BUN 10 6 - 20 mg/dL 05/10/2023 10:05 PM [facility] CREATININE 1.25(H) 0.70 - 1.20 mg/dL 05/10/2023 10:05 PM [facility] TRA [facility]ORATORY BUN/CREAT RATIO 8(L) 10 - 20 10:05 PM [facility] eGFR 67(L) >90 mL/min/1.7 3m2 05/10/2023 10:05 PM [facility] Comment:As of 2021, eG FR is calculated by the CKD-EPI creatinine equation without race adjustment. ??eGFR can be influenced by muscle mass, exercise, and diet. ??The reported eGFR is an estimation only and is only applicable if the renal function is stable. Blood BLOOD SPECIMEN / Unknown Venipuncture / Unknown 05/10/2023 12:11 PM SOLAR SYSTEM INSTALLER 05/10/2023 12:13 PM [facility] Jazmyn Clark DO [facility] [address] [place] [address], * (ABNORMAL) CBC WITH AUTO DIFFERENTIAL (04/05/2023 11:03 AM [facility]) Only the most recent of2 resultswithin the time period is included. Pathologist [facility] WHITE BLOOD COUNT 7.2 4.5 - 11.0 thou/cu mm 04/05/2023 11:08 AM [facility] RED BLOOD COUNT 4.84 4.30 - 5.90 mil/cu mm 04/05/2023 11:08 AM [facility] HEMOGLOBIN 13.0(L) 13.5 - 17.5 g/dL 04/05/2023 11:08 AM [facility] HEMATOCRIT 39.9 37.0 - 53.0 % 04/05/2023 11:08 AM [facility] MCV 82 80 - 100 fL 04/05/2023 11:08 AM [facility] MCH 26.9 26.0 - 34.0 pg 04/05/2023 11:08 AM [facility] MCHC 32.6 32.0 - 36.0 g/dL 04/05/2023 11:08 AM [facility] RDW 19.8(H) 11.5 - 15.5 % 04/05/2023 11:08 AM [facility] PLATELET COUNT 141 140 - 440 thou/cu mm 04/05/2023 11:08 AM [facility] MPV 8.9 6.5 - 11.0 fL 04/05/2023 11:08 AM [facility] % NEUT 61.7 % 04/05/2023 11:08 AM [facility] % LYMPH 26.9 % 04/05/2023 11:08 AM [facility] % MONO 8.4 % 04/05/2023 11:08 AM [facility] % EOS 2.6 % 04/05/2023 11:08 AM [facility] % BASO 0.4 % 04/05/2023 11:08 AM [facility] ABSOLUTE NEUTROPHILS 4.4 1.7 - 7.0 thou/cu mm 04/05/2023 11:08 AM [facility] ABSOLUTE LYMPHOCYTES 1.9 0.9 - 2.9 thou/cu mm 04/05/2023 11:08 AM [facility] ABSOLUTE MONOCYTES 0.6 <0.9 thou/cu mm 04/05/2023 11:08 AM [facility] ABSOLUTE EOSINOPHILS 0.2 <0.5 thou/cu mm 04/05/2023 11:08 AM [facility] ABSOLUTE BASOPHILS 0.0 <0.3 thou/cu mm 04/05/2023 11:08 AM [employer] [facility] Blood BLOOD SPECIMEN / Unknown Venipuncture / Unknown 04/05/2023 11:03 AM [employer] SYSTEM INSTALLER 04/05/2023 11:04 AM SOL[employer] SYSTEM INSTALLER Jazmyn Clark DO HEMATOLOGY Performing Organization Address City/[facility]/ZIP Co de Phone Number [facility] [address] [place] [address], * IRON PLUS IRON BINDING CAP (04/05/2023 11:03 AM SOLAR SYSTEM INSTALLER) Only the most recent of2 resultswithin the time period is included. IRON 66 61 - 157 ug/dL 04/05/2023 7:46 PM SOLAR SYSTEM INSTALLER [facility] UIBC (UNSATURATED) 193 112 - 347 ug/dL 04/05/2023 7:46 PM SOLAR SYSTEM INSTALLER [facility] IRON BINDING CAPACITY 259 250 - 400 ug/dL 04/05/2023 7:46 PM SOLAR SYSTEM INSTALLER [facility] IRON,% SATURATION 25 14 - 50 % 04/05/2023 7:46 PM SOLAR SYSTEM INSTALLER [facility] Blood BLOOD SPECIMEN / Unknown Venipuncture / Unknown 04/05/2023 11:03 AM SOLAR SYSTEM INSTALLER 04/05/2023 11:04 AM SOL[employer] SYSTEM INSTALLER Jazmyn Clark DO CHEMISTRY Performing Organization Address City/[facility]/ZIP Co de Phone Number [facility] [address] [place] [address], * FERRITIN (04/05/2023 11:03 AM SOLAR SYSTEM INSTALLER) Only the most recent of2 resultswithin the time period is included. FERRITIN 140.0 30.0 - 400.0 ng/mL 04/05/2023 7:46 PM SOLAR SYSTEM INSTALLER [facility] Blood BLOOD SPECIMEN / Unknown Venipuncture / Unknown 04/05/2023 11:03 AM SOLAR SYSTEM INSTALLER 04/05/2023 11:04 AM SOLAR SYSTEM INSTALLER Jazmyn Kaila Clark DO CHEMISTRY [facility] [address] [place] [address], from Last 3 Months Advance Directives Latest Code Status on File Code Status Date Activated Date Inactivated Comments Full Code 11/14/2022 11:33 AM 11/14/2022 5:07 PM Question Answer Comments Code Status Discussion: Discussed Code Status History Code Status Date Activated Date Inactivated Comments Full Code 12/08/2020 3:06 PM 12/10/2020 5:46 PM Question Answer Comments Code Status Discussion: Discussed Full Code 04/21/2020 2:43 PM 04/28/2020 12:42 PM Question Answer Comments Code Status Discussion: Per Existing Order Full Code 03/23/2020 10:02 PM 04/21/2020 1:29 PM Question Answer Comments Code Status Discussion: Discussed Full Code 11/18/2017 4:03 PM 11/20/2017 2:25 PM Care Teams Matrix Supervisor Relationship Specialty Start Date End Date Jazmyn Clark DO [facility] [address] [facility] [place] [address] PCP - General Family Practice 03/13/12 Eddie Moulton MD Internal Medicine Sleep Medicine 02/29/12 Diego Walker MD [address] [place] [address] Sports Medicine 02/29/12
== END 2023-05-16 10:58 | disposition home or self-care (01) ==
LOC: US 11:00
PROVIDERS: PCP Family Medicine; Visit Provider Internal Medicine
DX: I25.10 Atherosclerotic heart disease of native coronary artery without angina pectoris (principal); I10 Essential (primary) hypertension; I20.89 Other forms of angina pectoris; R06.02 Shortness of breath
CPT/HCPCS: 76775; 93975

== ENCOUNTER 2023-09-08 23:44 | Inpatient (IN) | payer MEDICARE, SELFPAY ==
[2023-09-08 23:53] VITALS: BP 97/58; PULSE 65; RESP 16; TEMP 35.5; O2SAT 94; BMI 40.7
[2023-09-08 23:54] VITALS: PULSE 61; O2SAT 95
[2023-09-09] VITALS (39 sets, daily range): BP systolic 83–156; BP diastolic 45–78; PULSE 50–77; RESP 18–20; TEMP 36–37.1; O2SAT 90–100; BMI 45.7
--- NOTE | 2023-09-09 00:02 | CRLHL7_ITS ---
For Patients: As a result of the Cures Act, medical imaging exams and procedure reports are released immediately into your electronic medical record. You may view this report before your referring provider. If you have questions, please contact your health care provider. INDICATION: Hypotension TECHNIQUE: Chest radiograph 3 views COMPARISON: None FINDINGS: The sensitivity and specificity of the exam are severely limited by the patient`s body habitus. Mediastinum: The mediastinum is normal in appearance. Mild cardiomegaly is present. Lung: Small lung volumes are present with mild reticulonodular opacity seen in the lower lung zones. No sign of pleural effusion seen. No pneumothorax is identified. Bone and Soft tissue: Unremarkable for age. IMPRESSIONS: 1. Mild cardiomegaly is present. 2. Small lung volumes are present with mild reticulonodular opacity seen in the lower lung zones. Dictated by Uri Ontiveros MD @ 09/09/2023 12:47:58 AM Dictated by: Uri Ontiveros MD @ 09/09/2023 00:48:01 (Electronically Signed)
[2023-09-09 00:24] LABS: Lactate* 1.6 mmol/L (0.5-1.9)
[2023-09-09 00:26] LABS: Eosinophils Percent Auto 3.2 % (0.0-7.0); Hematocrit 35.7 % (37.0-53.0); Hemoglobin* 11.6 gm/dL (13.5-17.5); Immature Granulocytes Abs Auto 0.07 K/uL (0.00-0.30); Immature Granulocytes Pct Auto 0.7 %; Lymphocytes Absolute Auto 2.32 K/uL (0.90-2.90); Lymphocytes Percent Auto 24.5 % (20-44); Mean Corpuscular HGB Conc 33 gm/dL (32-36); Mean Corpuscular Hemoglobin 29 pg (26-34); Mean Corpuscular Volume 90 fL (80-100); Neutrophils Absolute Auto 6.12 K/uL (1.7-7.0); Neutrophils Percent Auto 64.6 % (42.0-72.0); Platelet Count* 200 K/uL (140-440); RDW Coefficient of Variation % 13.7 % (11.5-15.5); Red Blood Count 3.96 m/uL (4.30-5.90); White Blood Count* 9.47 K/uL (4.50-11.00)
--- NOTE | 2023-09-09 00:27 | ED.WEAKNESS ---
HPI - Weakness General Date Seen: 09/09/23 Chief complaint: Hypotension Stated complaint: Low blood pressure 88/85 Time Seen by Provider: 09/08/23 23:45 Source: patient and family Mode of arrival: ambulatory Limitations: no limitations History of Present Illness HPI Narrative: Patient is a 50-year-old gentleman with lots of chronic medical problems. Presents here after he was hypotensive at home. Blood pressure was 88 on 50, says he feels very good, he does not have any significant chest pain shortness of breath he might have felt a little bit dizzy earlier, but ate 2 large bowls of watermelon. Because of his history of medical problems they thought he should get seen. He has never had a blood pressure reading this low he has actually had the opposite more than anything Took his blood pressure medications at 9:00 p.m. tonight. Thought that he had adequate fluids denies any nausea vomiting diarrhea, dysuria frequency, his no shortness of breath sweating, headaches or other issues Related Data Home Medications ?Medication ?Instructions ?Recorded ?Confirmed atorvastatin 40 mg tablet 40 mg PO HS 05/22/22 09/09/23 carvedilol 25 mg tablet 25 mg PO Q12H 05/22/22 09/09/23 cholecalciferol (vitamin D3) 25 1,000 unit PO .twice a week 05/22/22 09/09/23 mcg (1,000 unit) tablet clonidine HCl 0.1 mg tablet 0.1 mg PO BID 05/22/22 09/09/23 clopidogrel 75 mg tablet 75 mg PO DAILY 05/22/22 09/09/23 cyanocobalamin (vitamin B-12) 1,000 mcg PO DAILY 05/22/22 09/09/23 1,000 mcg tablet (Vitamin B-12) famotidine 20 mg tablet 20 mg PO DAILY 05/22/22 09/09/23 isosorbide mononitrate 60 mg 60 mg PO DAILY 05/22/22 09/09/23 tablet,extended release 24 hr lisinopril 20 mg tablet 20 mg PO BID 05/22/22 09/09/23 nitroglycerin 0.4 mg sublingual 0.4 mg sublingual Q5-15M PRN 05/22/22 09/09/23 tablet (Nitrostat) omeprazole 40 mg capsule,delayed 40 mg PO DAILY 05/22/22 09/09/23 release oxybutynin chloride 5 mg 5 mg PO DAILY 05/22/22 09/09/23 tablet,extended release 24 hr potassium chloride 20 mEq 40 meq PO BID 05/22/22 09/09/23 tablet,extended release tizanidine 4 mg tablet 4 mg PO HS 05/22/22 09/09/23 escitalopram oxalate 10 mg tablet 10 mg PO DAILY 09/22/22 09/09/23 aspirin 81 mg capsule 81 mg PO DAILY 09/09/23 09/09/23 ergocalciferol (vitamin D2) 1,250 1,250 mcg PO DAILY 09/09/23 09/09/23 mcg (50,000 unit) capsule (Vitamin D2) ezetimibe 10 mg tablet 10 mg PO DAILY 09/09/23 09/09/23 mirtazapine 15 mg tablet 15 mg PO QPM 09/09/23 09/09/23 spironolactone 25 mg tablet 25 mg PO DAILY 09/09/23 09/09/23 Allergies Allergy/AdvReac Type Severity Reaction Status Date / Time methylprednisolone Allergy Intermediate Insomnia Verified 10/01/22 13:24 [From Medrol] acetaminophen [From Percocet] Allergy Verified 10/01/22 13:24 citalopram [From Celexa] Allergy Verified 10/01/22 13:24 diphenhydramine Allergy Verified 10/01/22 13:24 [From Benadryl] morphine Allergy Verified 10/01/22 13:24 oxycodone [From Percocet] Allergy Verified 10/01/22 13:24 Review of Systems Status of ROS: Reports: 10 or more systems reviewed and unremarkable except as noted in History and below [facility] Medical History On home oxygen therapy ?Z99.81 - Dependence on supplemental oxygen (ICD-10) Post-viral cough syndrome ?R05.8 - Other specified cough (ICD-10) Acute respiratory failure with hypoxia ?J96.01 - Acute respiratory failure with hypoxia (ICD-10) 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 - Dependent personality disorder (ICD-10) Borderline personality disorder ?F60.3 - Borderline personality disorder (ICD-10) Major depressive disorder, recurrent episode, moderate ?F33.1 - Major depressive disorder, recurrent, moderate (ICD-10) Panic disorder without agoraphobia ?F41.0 - Panic disorder [episodic paroxysmal anxiety] (ICD-10) Bone island ?M89.8X9 - Other specified disorders of bone, unspecified site (ICD-10) DDD (degenerative disc disease) Pneumonia due to severe acute respiratory syndrome coronavirus 2 (SARS-CoV-2) ?U07.1 - COVID-19 (ICD-10) ?J12.82 - Pneumonia due to coronavirus disease 2019 (ICD-10) Microcytic anemia ?D50.9 - Iron deficiency anemia, unspecified (ICD-10) Adenomatous colon polyp ?D12.6 - Benign neoplasm of colon, unspecified (ICD-10) Dental infection ?K04.7 - Periapical abscess without sinus (ICD-10) GERD (gastroesophageal reflux disease) ?K21.9 - Gastro-esophageal reflux disease without esophagitis (ICD-10) Adrenal adenoma ?D35.00 - Benign neoplasm of unspecified adrenal gland (ICD-10) Acute hypoxemic respiratory failure ?J96.01 - Acute respiratory failure with hypoxia (ICD-10) Acute idiopathic gout ?M10.00 - Idiopathic gout, unspecified site (ICD-10) Vitamin D deficiency ?E55.9 - Vitamin D deficiency, unspecified (ICD-10) Arteriosclerotic cardiovascular disease ?I25.10 - Atherosclerotic heart disease of [place] coronary artery without angina pectoris (ICD-10) ACS (acute coronary syndrome) ?I24.9 - Acute ischemic heart disease, unspecified (ICD-10) Hypertension ?I10 - Essential (primary) hypertension (ICD-10) Social History Smoking Status: Former smoker How often do you have a drink containing alcohol: never AUDIT-C Alcohol total score: 0 Non-prescribed substance use: denies use Exam Narrative: Exam Narrative: I find him in room 4, in no apparent distress on chronic oxygen, pupils equal round reactive to light he does look pale. But his tells me looks paler than normal but he thinks he looks the same as always. TMs are normal oropharynx normal neck is supple, chest is clear bilaterally with no wheezing crackles noted heart sounds no clicks murmurs or gallops his abdomen is soft and obese, no guarding a past with megaly skin reveals no petechiae rashes he moves all extremities independently well, pitting edema 1+ bilaterally which she tells me is normal. Moves all extremities independently and well, with normal power both distally and proximally. Const: Vital Signs, click to edit/add: Vital Signs - 24 hr 09/08/23 23:53 09/08/23 23:54 09/09/23 00:00 Temperature 96 F L Pulse Rate 61 65 Pulse Rate [Pulse Oximeter] 65 Respiratory Rate 16 Blood Pressure Blood Pressure [Le ft Upper Arm] 97/58 L Pulse Oximetry 94 95 97 Oxygen Delivery Me thod Room Air Oxygen Flow Rate 09/09/23 00:20 09/09/23 00:32 09/09/23 00:33 Temperature Pulse Rate 59 L 61 Pulse Rate [Pulse Oximeter] Respiratory Rate Blood Pressure Blood Pressure [Le ft Upper Arm] Pulse Oximetry 95 97 95 Oxygen Delivery Me thod Oxygen Flow Rate 5 09/09/23 00:34 09/09/23 00:43 09/09/23 00:44 Temperature Pulse Rate 67 66 Pulse Rate [Pulse Oximeter] Respiratory Rate Blood Pressure 83/51 L Blood Pressure [Le ft Upper Arm] Pulse Oximetry 95 99 97 Oxygen Delivery Me thod OxyMask Oxygen Flow Rate 5 09/09/23 00:45 09/09/23 01:00 09/09/23 01:13 Temperature Pulse Rate 58 L 55 L 58 L Pulse Rate [Pulse Oximeter] Respiratory Rate Blood Pressure 86/52 L Blood Pressure [Le ft Upper Arm] Pulse Oximetry 96 97 95 Oxygen Delivery Me thod Oxygen Flow Rate 09/09/23 01:15 09/09/23 01:16 09/09/23 01:17 Temperature Pulse Rate 55 L 56 L 55 L Pulse Rate [Pulse Oximeter] Respiratory Rate Blood Pressure 93/57 L Blood Pressure [Le ft Upper Arm] Pulse Oximetry 97 96 98 Oxygen Delivery Me thod Oxygen Flow Rate 09/09/23 01:30 09/09/23 01:32 09/09/23 01:45 Temperature Pulse Rate 54 L 54 L 53 L Pulse Rate [Pulse Oximeter] Respiratory Rate Blood Pressure 85/45 L Blood Pressure [Le ft Upper Arm] Pulse Oximetry 97 97 98 Oxygen Delivery Me thod Oxygen Flow Rate 09/09/23 01:47 09/09/23 02:00 09/09/23 02:01 Temperature Pulse Rate 53 L 55 L 53 L Pulse Rate [Pulse Oximeter] Respiratory Rate Blood Pressure 94/54 L 99/57 L Blood Pressure [Le ft Upper Arm] Pulse Oximetry 97 99 100 Oxygen Delivery Me thod Oxygen Flow Rate 09/09/23 02:15 09/09/23 02:16 09/09/23 02:17 Temperature Pulse Rate 53 L 51 L 52 L Pulse Rate [Pulse Oximeter] Respiratory Rate Blood Pressure 104/52 L Blood Pressure [Le ft Upper Arm] Pulse Oximetry 98 97 98 Oxygen Delivery Me thod Oxygen Flow Rate 09/09/23 02:32 09/09/23 02:33 09/09/23 02:45 Temperature Pulse Rate 50 L 56 L Pulse Rate [Pulse Oximeter] Respiratory Rate Blood Pressure 100/50 L Blood Pressure [Le ft Upper Arm] Pulse Oximetry 97 97 Oxygen Delivery Me thod Oxygen Flow Rate 09/09/23 02:46 09/09/23 03:00 09/09/23 03:01 Temperature Pulse Rate 52 L 56 L 52 L Pulse Rate [Pulse Oximeter] Respiratory Rate Blood Pressure 100/65 Blood Pressure [Le ft Upper Arm] Pulse Oximetry 96 97 98 Oxygen Delivery Me thod Oxygen Flow Rate 09/09/23 03:15 Temperature Pulse Rate 54 L Pulse Rate [Pulse Oximeter] Respiratory Rate Blood Pressure Blood Pressure [Le ft Upper Arm] Pulse Oximetry 99 Oxygen Delivery Me thod Oxygen Flow Rate Documenting provider has reviewed patient's vital signs: yes Course Reevaluation(s) Time of Reevaluation #1: 03:23 Reevaluation #1: Patient is sleeping, blood pressure is markedly improved he is up into the triple digits, 104 on 60. Still remains relatively uncompensated with pulses in the 60s. Received 2 L of fluid, continues on with a 5 L by face mask which she is chronically on. I did do a point of care ultrasound, does show that he did not have pericardial effusion. Very tough windows given his habitus. For his hyperkalemia, he received albuterol by face mask, insulin and dextrose, calcium, and lokelma, repeat EKG did not show any acute ST wave changes nor did it show peaked T-waves or other stigmata of the hyperkalemia. He has been in normal sinus rhythm with no arrhythmia. Repeat troponin remained stable at 0.01. I do think his hyperkalemia is multifactorial, likely from blood pressure medication/CHRISTINA-inhibitor and also being on potassium replacement. I did talk to from Hospital Medicine, we will admit him to the CCU, for ongoing monitoring, treatment, fluids. In this setting he will need to have his blood pressure medications held. I do not think we need to transfer him for acute dialysis, Vital Signs Vital signs: Initial Vital Signs Temperature 96 F L 09/08/23 23:53 Temperature Source Temporal Artery Scan 09/08/23 23:53 Pulse Rate 65 09/08/23 23:53 Respiratory Rate 16 09/08/23 23:53 Blood Pressure 97/58 L 09/08/23 23:53 Blood Pressure Mean 71 09/08/23 23:53 Blood Pressure Position Sitting 09/08/23 23:53 Pulse Oximetry 94 09/08/23 23:53 Oxygen Delivery Method Room Air 09/08/23 23:53 Vital Signs Temperature 96 F L 09/08/23 23:53 Pulse Rate 65 09/08/23 23:53 Respiratory Rate 16 09/08/23 23:53 Blood Pressure 97/58 L 09/08/23 23:53 Pulse Oximetry 94 09/08/23 23:53 Oxygen Delivery Method Room Air 09/08/23 23:53 Temperature 96 F L 09/08/23 23:53 Pulse Rate 54 L 09/09/23 03:15 Respiratory Rate 16 09/08/23 23:53 Blood Pressure 100/65 09/09/23 03:01 Pulse Oximetry 99 09/09/23 03:15 Oxygen Delivery Method OxyMask 09/09/23 00:34 Oxygen Flow Rate 5 09/09/23 00:34 Medications Administered Medications: Generic Name Dose Route Start Last Admin Trade Name Freq PRN Reason Stop Dose Admin Albuterol 2.5 mg 09/09/23 01:36 09/09/23 01:59 Albuterol Sulfate 2.5 Mg/3 Ml Vial.Neb NEB 09/09/23 01:37 2.5 mg ONCE ONE Administration Dextrose 25 gm 09/09/23 01:36 09/09/23 02:01 Dextrose 50 % Syringe IVP 09/09/23 01:37 25 gm ONCE ONE Administration Sodium Chloride 1,000 mls @ 1,000 mls/hr 09/09/23 01:15 09/09/23 03:11 0.9 % Sodium Chloride 1000 Ml IV 09/09/23 02:14 Infused .Q1H NATHANAEL Infusion Calcium Gluconate/Sodium Chloride 1,000 mg in 50 mls @ 100 mls/hr 09/09/23 01:37 09/09/23 02:51 Calcium Gluc 1,000mg/50 Ml IVPB 09/09/23 02:06 Infused ONCE ONE Infusion Insulin Human Regular 10 unit 09/09/23 01:36 09/09/23 02:05 Insulin Regular 100 Unit/Ml Inj IVP 09/09/23 01:37 10 unit ONCE ONE Administration Sodium Zirconium Cyclosilicate 10 gm 09/09/23 01:36 09/09/23 02:22 Sodium Zirconium Cyclosilicate 10 Gm PO 09/09/23 01:37 10 gm ONCE ONE Administration Discontinued Medications Generic Name Dose Route Start Last Admin Trade Name Freq PRN Reason Stop Dose Admin Sodium Chloride 1,000 mls @ 1,000 mls/hr 09/09/23 00:00 09/09/23 01:57 0.9 % Sodium Chloride 1000 Ml IV 09/09/23 00:59 Infused .Q1H NATHANAEL Infusion MDM - Weakness MDM Narrative Medical decision making narrative: Life-threatening differential diagnosis considered include stroke, coronary artery disease, pneumonia, and heart failure. Other differential diagnosis include but are not limited to electrolyte imbalances, anemia, medication reactions, and urinary tract infection Is considering the whole host of medical issues at this gentleman has, I will err on the side of safety we will do a chest x-ray EKG, along with laboratory work, if these are normal then I think we can room send him home. He was comfortable with this. Differential Diagnosis Differential diagnosis: Likely acute myocardial infarction, anemia, hypoglycemia, hypothyroidism, rhabdomyolysis, sepsis and dehydration Medical Records Attestation: I reviewed the patient's medical records. Lab Data Attestation: I reviewed the patient's lab results. Labs: Lab Results 09/09/23 09/09/23 09/09/23 Range/Units 00:01 00:20 02:35 WBC 9.47 (4.50-11.00) K/uL RBC 3.96 L (4.30-5.90) m/uL Hgb 11.6 L (13.5-17.5) gm/dL Hct 35.7 L (37.0-53.0) % MCV 90 (80-100) fL MCH 29 (26-34) pg MCHC 33 (32-36) gm/dL RDW Coeff of Maria Luisa 13.7 (11.5-15.5) % Plt Count 200 (140-440) K/uL Neut % (Auto) 64.6 (42.0-72.0) % Lymph % (Auto) 24.5 (20-44) % [place] % (Auto) 7.0 (0.0-11.0) % Eos % (Auto) 3.2 (0.0-7.0) % Baso % (Auto) 0.0 (0.0-3.0) % Neut # (Auto) 6.12 (1.7-7.0) K/uL Lymph # (Auto) 2.32 (0.90-2.90) K/uL [place] # (Auto) 0.70 (0.00-0.90) K/UL Eos # (Auto) 0.30 (0.00-0.50) K/uL Baso # (Auto) 0.00 (0.00-0.30) K/uL Abs Immat Gran (auto) 0.07 (0.00-0.30) K/uL Imm/Tot Granulo (auto) 0.7 % D-Dimer Quant (PE/DVT) 0.22 (0.00-0.50) ug/ml Sodium 139 139 (135-149) mmol/L Potassium 5.8 H 5.7 H (3.6-5.1) mmol/L Chloride 107 112 (96-114) mmol/L Carbon Dioxide 25 24 (20-32) mmol/L Anion Gap 7 3 L (7-15) mEq/L BUN 25 24 (7-30) mg/dL Creatinine 1.7 H 1.6 H (0.5-1.5) mg/dL Estimated Creat Clear 44.28 47.05 Estimated GFR 46 50 ml/min Glucose 143 H 106 (60-115) mg/dL Lactate 1.6 (0.5-1.9) mmol/L Calcium 9.1 8.3 L (8.4-10.6) mg/dL NT-Pro-B Natriuret Pep 156 pg/mL POC Troponin I 0.00 L (0.01-0.04) ng/ml 05/27/24 Range/Units 02:40 WBC (4.50-11.00) K/uL RBC (4.30-5.90) m/uL Hgb (13.5-17.5) gm/dL Hct (37.0-53.0) % MCV (80-100) fL MCH (26-34) pg MCHC (32-36) gm/dL RDW Coeff of Maria Luisa (11.5-15.5) % Plt Count (140-440) K/uL Neut % (Auto) (42.0-72.0) % Lymph % (Auto) (20-44) % [place] % (Auto) (0.0-11.0) % Eos % (Auto) (0.0-7.0) % Baso % (Auto) (0.0-3.0) % Neut # (Auto) (1.7-7.0) K/uL Lymph # (Auto) (0.90-2.90) K/uL [place] # (Auto) (0.00-0.90) K/UL Eos # (Auto) (0.00-0.50) K/uL Baso # (Auto) (0.00-0.30) K/uL Abs Immat Gran (auto) (0.00-0.30) K/uL Imm/Tot Granulo (auto) % D-Dimer Quant (PE/DVT) (0.00-0.50) ug/ml Sodium (135-149) mmol/L Potassium (3.6-5.1) mmol/L Chloride (96-114) mmol/L Carbon Dioxide (20-32) mmol/L Anion Gap (7-15) mEq/L BUN (7-30) mg/dL Creatinine (0.5-1.5) mg/dL Estimated Creat Clear Estimated GFR ml/min Glucose (60-115) mg/dL Lactate (0.5-1.9) mmol/L Calcium (8.4-10.6) mg/dL NT-Pro-B Natriuret Pep pg/mL POC Troponin I 0.01 (0.01-0.04) ng/ml Imaging Data Chest x-ray: Attestation: I have reviewed the pertinent imaging results. My impression: No acute changes ECG Data Attestation: I personally reviewed and interpreted this ECG as follows: ECG interpretation date: 09/09/23 Interpretation: EKG shows sinus bradycardia, incomplete right bundle-branch block, no acute ST wave changes, normal QT Discharge Plan Discharge Clinical Impression: Acute hypotension, Acute renal insufficiency, Acute hyperkalemia Patient Disposition: Admitted As Observation Condition: Improved
[2023-09-09 00:29] LABS: Slide Review Reflex No
--- OUTSIDE RECORDS SUMMARY | 2023-09-09 00:34 | XMS_ITS | Encounter Summary ---
Author Organization [facility] Address [address] [place] [address] Care Team Providers Care Supplemental Nurse Name Role Phone Jazmyn Clark Primary Care Provider Unav ailable Encounter Details Date Type Department Care Team (Late st Contact Info) Description 09/09/2023 Orders Only [facility] [address] [facility] [address] [place] [address] Jimmy Leonard MD [address] [place] [address] Essential (primary) hypertension; Chronic kidney disease, stage 2 (mild) Social History Tobacco Use Types Packs/Day Years Used Date Smoking Tobacco: Never Smokeless Tobacco: Never Alcohol Use Standard Drinks/Week Comments Not Currently 0 (1 standard drink = 0.6 oz pur e alcohol) none in 5 years Sex and Gender Information Value Date Recorded Sex Assigned at Not on file Gender Identity Not on file Sexual Orientation Not on file documented as of this encounter Plan of Treatment Upcoming Encounters Date Type Department Care Team (Late st Contact Info) Description 09/26/2023 10:30 AM EDT Office Visit [facility] [address] [place] [address] Jimmy Leonard MD [address] [place] [address] documented as of this encounter Visit Diagnoses Diagnosis Essential (primary) hypertension Chronic kidney disease, stage 2 (mild) documented in this encounter Care Teams Supplemental Nurse Relationship Specialty Start Date End Date Jazmyn Clark DO [address] [place] [address] PCP - General Family Medicine 04/30/23 documented as of this encounter
--- OUTSIDE RECORDS SUMMARY | 2023-09-09 00:34 | XMS_ITS | Clinical Summary ---
Author Organization [facility] Address [address] [place] [address] Phone Care Team Providers Care First Line Supervisor Name Role Phone Jazmyn Clark DO Primary Care Provider Unav ailable Allergies Active Allergy Reactions Criticality Noted Date Comments Citalopram 11/08/2005 ineffective Codeine 05/21/2023 Diphenhydramine Other (see comments) 03/24/2012 Methylprednisolone Other (see comments) High 03/25/2019 Morphine Other (see comments) High 04/06/2014 Oxycodone 10/01/2022 Oxycodone-Acetaminophen Other (see comments) High 02/08/2022 per report messes with my head Thiazide-Type Diuretics Other (see comments) 05/12/2023 HCTZ/Chlorthalidone both decrease K and increase his creatinine historically. Medications Medication Sig Dispensed Refills Start Date End Date Status amLODIPine (NORVASC) 5 MG tablet Take 1 tablet by mouth 1 (one) time each day 05/14/2023 Active clopidogrel (PLAVIX) 75 MG tablet Take 1 tablet by mouth every morning 05/12/2023 Active carvedilol (COREG) 25 MG tablet Take 1 tablet by mouth in the morning and 1 tablet in the evening. Take with meals. 05/12/2023 Active hydrOXYzine (ATARAX) 25 MG tablet Take 1 tablet by mouth 2 (two) times a day if needed For panic attacks 05/12/2023 Active clonazePAM (KlonoPIN) 1 MG tablet Take 1 tablet by mouth every night 10/15/2022 Active potassium chloride (K-TAB) 20 MEQ CR tablet Take 2 tablets by mouth in the morning and 2 tablets in the evening. 03/11/2023 Active isosorbide mononitrate (IMDUR) 60 MG 24 hr tablet Take 2 tablets by mouth 1 (one) time each day 02/10/2023 Active tiZANidine (ZANAFLEX) 4 MG tablet Take 1 tablet by mouth at bed time 01/14/2023 Active mirtazapine (REMERON) 15 MG tablet Take 1 tablet by mouth at bed time 01/08/2023 Active escitalopram (LEXAPRO) 10 MG tablet Take 2 tablets by mouth in the morning. 12/19/2022 Active Vitamin D, Ergocalciferol, 22583 units capsule Take 1 capsule by mouth 2 (two) times a week Saturday and 11/14/2022 Active famotidine (PEPCID) 20 MG tablet Take 1 tablet by mouth in the morning and 1 tablet in the evening. 11/13/2022 Active omeprazole (PriLOSEC) [address] capsule Take 1 capsule by mouth 1 (one) time each day 10/22/2022 Active nitroglycerin (NITROSTAT) 0.[address] 1 tablet under the tongue every 5 (five) minutes if needed for chest pain Up to 3 doses 10/01/2022 Active atorvastatin (LIPITOR) 40 MG tablet Take 1 tablet by mouth 1 (one) time each day 09/03/2022 Active cyanocobalamin (VITAMIN B-12) 1000 MCG tablet Take 1 tablet by mouth 1 (one) time each day 11/20/2021 Active lisinopril 20 MG tablet Take 1 tablet by mouth in the morning and 1 tablet in the evening. 04/15/2023 Active oxybutynin XL (DITROPAN-XL) 5 MG 24 hr tablet Take 1 tablet by mouth 1 (one) time each day 04/15/2023 Active cloNIDine (CATAPRES) 0.1 MG tablet Take 1 tablet by mouth in the morning and 1 tablet in the evening. 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 Most recent finding 2020 1.4 cm. Debility 04/22/2020 Coronary arteriosclerosis 11/19/2017 Overview: - 11/18/17 acute DE, AMILCAR x 2 to RCA Body mass index 40+ - severely obese 02/14/2016 Acute gouty arthropathy 06/29/2015 Degeneration of lumbar intervertebral disc 07/08 Borderline personality disorder 11/26/2012 Vitamin D deficiency 03/07/2012 Panic disorder without agoraphobia 06/19/2011 Recurrent major depressive episodes, moderate Essential (primary) hypertension 11/08/2005 Esophageal reflux 11/08/2005 Encounters Date Type Department Care Team Description 09/09/2023 Orders Only [facility] [address] [place] [id number] Jimmy Leonard MD Essential (primary) hypertension; Chronic kidney disease, stage 2 (mild) 08/20/2023 Telephone [facility] [address] [place] [phone] Wanda Braun RN from Last 3 Months Family History Medical History Relation Comments Heart disease Brother Heart disease Father Heart disease Father's Brother Cancer Mother Diabetes Mother Cancer Mother's Sister Cancer Sister Relation Status Comments Brother Alive Father Father's Brother Mother Mother's Sister Sister Alive Social History Tobacco Use Types Packs/Day Years Used Date Smoking Tobacco: Never Smokeless Tobacco: Never Tobacco Cessation:Counseling Given: Not Answered Alcohol Use Standard Drinks/Week Comments Not Currently 0 (1 standard drink = 0.6 oz pur e alcohol) none in 5 years Sex and Gender Information Value Date Recorded Sex Assigned at Not on file Gender Identity Not on file Sexual Orientation Not on file Last Filed Vital Signs Vital Sign Reading Time Taken Comments Blood Pressure 156/83 05/22/2023 10:06 AM HEALTHCARE ARCHITECT Pulse 66 05/22/2023 10:06 AM HEALTHCARE ARCHITECT Temperature - - Respiratory Rate - - Oxygen Saturation - - Inhaled Oxygen Concentration - - Weight 129 kg (285 lb) 05/22/2023 10:06 AM HEALTHCARE ARCHITECT 1 week ago per patient Height 166.4 cm (5' 5.5) 05/22/2023 10 :06 AM HEALTHCARE ARCHITECT Body Mass Index 46.71 05/22/2023 10:06 AM HEALTHCARE ARCHITECT Plan of Treatment Upcoming Encounters Date Type Department Care Team (Late st Contact Info) Description 09/26/2023 10:30 AM EDT Office Visit [facility] [address] [place] [address] Jimmy Leonard MD [address] [place] [phone] Health Maintenance Due Date Last Done Comments Pneumococcal Vaccine: Pediat rics (0 to 5 Years) and At-Risk Patients (6 to 64 Years) (1 of 2 - PCV) [birth year]16/1971 Hepatitis B Vaccine (1 of 3 - 19+ 3-dose series) 1984 Colorectal Cancer Screening: Annual FOBT 2014 Colorectal Cancer Screening: Colonoscopy 2014 Colorectal Cancer Screening: Sigmoidoscopy 2014 Influenza Vaccine (Season Ended) 2023 01/08/2022, 02/22/2021, 12/27/2015, Additional history exists Care Teams First Line Supervisor Relationship Specialty Start Date End Date [place] [address] PCP - General Family Medicine 04/30/23
--- OUTSIDE RECORDS SUMMARY | 2023-09-09 00:34 | XMS_ITS | Encounter Summary ---
Author Organization [facility] Address [address] [place] [address] Care Team Providers Care News Director Name Role Phone Jazmyn Clark Primary Care Provider Unav ailable Encounter Details Date Type Department Care Team (Late st Contact Info) Description 08/20/2023 Telephone [facility] [address] [place] [address] Wanda Braun, RN [address] [place] [address] Social History Tobacco Use Types Packs/Day Years [...] on file documented as of this encounter Miscellaneous Notes * Telephone Encounter - Wanda Braun RN - 08/20/2023 2:25 PM CDT called to have PVL order faxed to [facility]. Scheduled for lab on 09/16. Order faxed. documented in this encounter Plan of Treatment Upcoming Encounters Date Type Department Care Team (Late st Contact Info) Description 09/26/2023 10:30 AM EDT Office Visit [facility] [place] [address] [place] [address] Jimmy Leonard MD [address] [place] [phone] documented as of this encounter Visit Diagnoses Not on filedocumented in this encounter Care Teams News Director Relationship Specialty Start Date End Date Jazmyn Clark DO [address] [place] [address] PCP - General Family Medicine 04/30/23 documented as of this encounter
--- OUTSIDE RECORDS SUMMARY | 2023-09-09 00:35 | XMS_ITS | Continuity of Care Document ---
Author Organization [facility] Address [address] [address] [place] [address] Phone Care Team Providers Care Process Engineering Technician Name Role Phone Herbert ONEAL, Edwina Unavailable Unavailable Procedures Procedure Date Init Hosp-da E&m Mod Severity 1 Ugi Endo; W/bx 1/mx Ugi Endo; W/remov Tumor/les-sn Colonoscopy Flex; W/remov Les- Advance Directives Directive Yes / No Effective Date File Name No Information Encounters Encounter Description Practice Location Reason(s) For Visit Diagnoses Date Provider Providers Copied on Encounter [facility], [address] [address], [place], [place], [id number], tel:[phone] [facility] No Information 1 Herbert Bland. [address] [place] [address], [id number] , . tel:[phone] Init Hosp-da E&m Mod Severity [facility], [address] [address], [place], [place], [id number], tel:[phone] [facility] No Information 1 Herbert Bland. [address] [place] [address], [id number] , . [phone] Referring Provider: Jazmyn Clark MD, [address] [place] [address], [address]. tel:[phone] Family History Family Member Type Diagnosis Age At Onset No Information Payers Payer name Insurance type Covered alliance party ID Authoriza tion(s) No Information Social History Type Description Quantity Date Captured [...]
--- OUTSIDE RECORDS SUMMARY | 2023-09-09 00:35 | XMS_ITS | Clinical Summary ---
Author Organization [facility] Address [place], [place] [address] Care Team Providers Care Retread Builder Name Role Phone Eddie Moulton MD Unavailable Diego Walker MD Unavailable [phone] Son Castillo DO Primary Care Provider [phone] Allergies Active Allergy Reactions Criticality Noted Date [...] 1 capsule by mouth once daily. 0 8 Active oxygen-air delivery systems (HOME OXYGEN)Indications :Acute hypoxemic respiratory failure due to COVID-19 (HC),Acute respiratory failure with hypoxia (HC) Oxygen for home use. Liters per minute: 2 L 0xygen per oxy mask at rest, 10 liters 0xygen per oxymask with activity. Frequency of use: Continuous with portability.;. Length of need: 99 Months. 1 Device 1 Active NebulizerIndicatio ns:COVID-19 long hauler,On home oxygen therapy Nebulizer, disposable neb kit x 4, reuseable neb kit x 1, mask x 1, filters x 1. Frequency of use: daily; Medication: duoneb Length of need: 99 months 1 Each 1 Active cyanocobalamin (Vitamin B-12) 1,000 mcg tabletIndications: Low vitamin B12 level Take 1 Tablet (1,000 mcg) by mouth once daily. 90 Tablet 3 2 Active omeprazole (PRILOSEC) 40 mg Delayed-Release capsuleIndications :Upper GI bleed TAKE 1 CAPSULE BY MOUTH ONCE DAILY BEFORE A MEAL 90 Capsule 3 3 Active escitalopram oxalate (LEXAPRO) 10 mg tabletIndications: Major depressive disorder, recurrent episode, moderate (HC),Anxiety Take 2 Tablets (20 mg) by mouth every morning. 180 Tablet 3 3 Active mirtazapine (REMERON) 15 mg tabletIndications: Sleep pattern disturbance Take 1 Tablet (15 mg) by mouth at bedtime. 90 Tablet 3 3 Active isosorbide mononitrate (IMDUR) 60 mg extended release tablet 24 hourIndications:HT N (hypertension) Take 2 Tablets (120 mg) by mouth once daily. 180 Tablet 3 3 Active clonazePAM (KLONOPIN) 1 mg tabletIndications: Sleep disorder TAKE 1 TABLET BY MOUTH AT BEDTIME 90 Tablet 1 4 Active oxybutynin XL (DITROPAN XL) 5 mg CR tabletIndications: Urine frequency TAKE 1 TABLET BY MOUTH ONCE DAILY 100 Tablet 1 4 Active carvediloL (COREG) 25 mg tabletIndications: HTN (hypertension),Art eriosclerotic heart disease (ASHD) TAKE 1 TABLET BY MOUTH TWICE DAILY WITH MEALS 200 Tablet 2 4 Active spironolactone (ALDACTONE) 25 mg tabletIndications: ASHD (arteriosclerotic heart disease),Essential hypertension Take 1 Tablet (25 mg) by mouth once daily. 30 Tablet 4 Active cloNIDine HCL (CATAPRES) 0.1 mg tabletIndications: HTN (hypertension) TAKE 1 TABLET BY MOUTH TWICE DAILY 200 Tablet 2 4 Active lisinopriL (PRINIVIL; ZESTRIL) 20 mg tabletIndications: HTN (hypertension) TAKE 1 TABLET BY MOUTH TWICE DAILY 200 Tablet 2 4 Active atorvastatin (LIPITOR) 40 mg tabletIndications: Mixed hyperlipidemia TAKE 1 TABLET BY MOUTH ONCE DAILY 100 Tablet 1 4 Active Vitamin D2 1,250 mcg (50,000 unit) capsuleIndications :Vitamin D deficiency TAKE 1 CAPSULE BY MOUTH EVERY SATURDAY AND SATURDAY 29 Capsule 2 4 Active amLODIPine (NORVASC) 5 mg tabletIndications: ASHD (arteriosclerotic heart disease),HTN (hypertension) Take 1 Tablet (5 mg) by mouth two times daily. 180 Tablet 3 4 Active tiZANidine (ZANAFLEX) 4 mg tablet Take 4 mg by mouth at bedtime. Take an additional 4 mg once daily as needed. Active clopidogreL (PLAVIX) 75 mg tabletIndications: S/P drug eluting coronary stent placement,Arterios clerotic heart disease (ASHD) Take 1 Tablet (75 mg) by mouth every morning. Take once daily by mouth at least one year without interruption 90 Tablet 3 4 Active nitroglycerin (NITROSTAT) 0.4 mg sublingual tabletIndications: S/P drug eluting coronary stent placement,Arterios clerotic heart disease (ASHD) Place 1 Tablet (0.4 mg) under the tongue every 5 minutes if needed for Chest pain 1st choice (Hold if SBP less than 90 mmHg). Up to 3 tablets in 15 minutes. Call 911 if symptoms not resolved after the 1st dose 25 Tablet 2 4 Active aspirin chewable 81 mg chewable tabletIndications: S/P drug eluting coronary stent placement,Arterios clerotic heart disease (ASHD) Take 1 Tablet (81 mg) by mouth or nasogastric tube once daily. Take once daily by mouth indefinitely 90 Tablet 3 4 Active ezetimibe (ZETIA) 10 mg tabletIndications: Dyslipidemia Take 1 Tablet (10 mg) by mouth once daily. 90 Tablet 3 4 Active potassium chloride (K-TAB) 20 mEq extended-release tabletIndications: Hypokalemia Take 2 Tablets (40 mEq) by mouth two times daily with meals. 360 Tablet 4 Active xylitoL (XyliMelts) 500 mg mabtIndications:Dr araseli mouth Apply to the lining of the mouth. 30 Tablet 11 4 Active famotidine (PEPCID) 20 mg tabletIndications: Gastroesophageal reflux disease without esophagitis TAKE 1 TABLET BY MOUTH TWICE DAILY 200 Tablet 2 4 Active famotidine (PEPCID) 20 mg tabletIndications: Gastroesophageal reflux disease without esophagitis TAKE 1 TABLET BY MOUTH TWICE DAILY 200 Tablet 2 3 09/02/19 Discontinued Active Problems Problem Noted Date Diagnosed Date Abnormal stress test 06/13/2023 Overview: - 05/29/23 NM Stress Test: Myocardial perfusion was abnormal. There was a small to medium-sized area of mild ischemia in the basal and mid anterolateral and inferolateral alexandre. Additionally, there was a small area of severe transmural infarction in the basal and mid inferior wall. LITO (obstructive sleep apnea) 06/13/2023 COVID-19 antonio marie manifes ting chronic decreased mobility and endurance 09/06/2022 [id number] syndrome manifesting as chronic dy spnea 09/06/2022 [...] disease (ASHD) 11/19/2017 Overview: - 11/18/17 acute ND, AMILCAR x 2 to RCA ACS (acute coronary syndrome) 11/18/2017 Dental infection 11/18/2017 Adenomatous colon polyp 04/19/2016 Overview: Colonoscopy 04/2016 polyps repeat in 5 years Morbid obesity with BMI of 40.0-44.9, adult 11/0 04/2015 Acute idiopathic gout 06/29/2015 DDD (degenerative [...] hypertension 01/15/2007 05/06/2012 Overview: negative stress test [place] Esophageal reflux 01/15/2007 05/19/2011 Overview: esophagitis on EGD Calculus of gallbladder with out mention of cholecystitis or obstruction 01/15/2007 01/23/2014 Unspecified drug dependence, unspecified 11/08/2005 08/04/2017 Overview: Quit drinking 11/19 cardiac 1999 05/19/2011 Overview: negative stress test Encounters Date Type Department Care Team Description 09/06/2023 10:30 AM CDT Office Visit [facility] [address] [place] [address] Hari Wasserman, AuD Hearing Problem 09/06/2023 Travel 09/04/2023 4:00 PM CDT Telemedicine [facility] [address] [place] [address] Belgica Mosley PsyD, ROXI Telehealth 09/01/2023 Refill [facility] [address] [place] [address] Son Castillo, Refill Request (Famotidine) 08/23/2023 11:00 AM CDT Telemedicine [facility] [id number] [place] [address] Belgica Mosley PsyD, ROXI Telehealth 08/20/2023 Orders Only [facility] [address] [place] [address] Son Castillo DO Outside Order (Ordered by Jimmy Leonard ) 08/14/2023 9:00 AM CDT Telemedicine [facility] [id number] [place] [address] Belgica Mosley PsyD, ROXI Telehealth 08/08/2023 12:30 PM CDT Telemedicine [facility] [address] [place] [address] [address] [place] [address] Josefina Salcedo, JORGE LUIS Telehealth 08/07/2023 9:00 AM CDT Telemedicine [facility] [id number] [place] [address] Belgica Mosley PsyD, LP Telehealth 07/31/2023 9:00 AM CDT Telemedicine [facility] [id number] [place] [address] Belgica Mosley PsyD, LP Telehealth 07/29/2023 Refill [facility] [address] [place] [address] Son Castillo DO Refill Request (Potassium CL CR WM TB ) 07/24/2023 10:00 AM CDT Telemedicine [facility] [address] [place] [address] Belgica Mosley PsyD, ROXI Telehealth 07/18/2023 11:00 AM CDT Office Visit [facility] [address] [place] [address] Blanca Peraza NP Follow Up (1 month F/U, stent placed 06/13. Pt states BP has been lower but he has no strength. Can't do much for movement, stays in bed most of the day. Both hands feel a little tingly currently. Needs refill of ezetimibe if supposed to continue) 07/18/2023 Orders Only [facility] [place] [address] [facility] [address] [place] [address] Blanca Peraza NP <No scans attached> 07/18/2023 Travel 07/17/2023 9:00 AM CDT Telemedicine [facility] [phone] [place] [address] Belgica Mosley PsyD, LP Telehealth 06/26/2023 4:00 PM CDT Telemedicine [facility] [id number] [place] [address] Belgica Mosley PsyD, LP Telehealth 06/26/2023 Travel 06/20/2023 Orders Only [facility] [address] [place] [address] Son Castillo DO <No scans attached> 06/19/2023 9:25 AM GAME PRESERVE MANAGER Office Visit [facility] [address] [place] [address] Son Castillo DO Hospital F/U (stent placed) 06/19/2023 Travel 06/17/2023 Patient Outreach [facility] [address] [place] [address] Dawn Mark, RN Hospital F/U; Primary RN Care Management (LACE 21 ) 06/13/2023 Travel 06/12/2023 1:00 PM GAME PRESERVE MANAGER Telemedicine [address] [address] Belgica Mosley PsyD, LP Telehealth 06/12/2023 Telephone [facility] [address] [place] [address] Lissette Wu MD Refill Request (CHLORTHALIDONE TAB) from Last 3 Months Immunizations Name Administration Dates Next Due COVID-19 vaccine (Desi Hits-Bio NTech 30mcg/0.3mL) 12YO+ BIVALENT PF, MDV 01/08/2022 COVID-19 vaccine (Desi Hits-[employer] NTech 30mcg/0.3mL) PF, MDV 02/22/2021,07/23/2020,07/02/2020 Influenza, IIV3 [...] PHQ-2 Answer Date Recorded PHQ-2 TOTAL SCORE 3 06/26/2023 Social Connections Answer Date Recorded Frequency of [...] Sign Reading Time Taken Comments Blood Pressure 118/80 07/18/2023 11:12 AM CDT Pulse 60 07/18/2023 11:12 AM CDT Temperature 36.6 ??C (97.9 ??F) 06/15/2023 8:30 AM CS T Respiratory Rate 18 06/15/2023 8:30 AM GAME PRESERVE MANAGER Oxygen Saturation 98% 07/18/2023 11:12 AM CDT Inhaled Oxygen Concentration - - Weight 129.3 kg (285 lb) 07/18/2023 11:12 AM CDT Height 167.6 cm (5' 6) 07/18/2023 11:12 AM CDT Body Mass Index 46 07/18/2023 11:12 AM CDT Plan of Treatment Upcoming Encounters Date Type Department Care Team (Late st Contact Info) Description 09/17/2023 10:30 AM CDT Orders Only [address] [address] [place] 09/18/2023 4:00 PM CDT Telemedicine [address] [address] Belgica Mosley PsyD, LP [address] [place] [address] 10/02/2023 4:00 PM CDT Telemedicine [address] [address] Belgica Mosley PsyD, ROXI [address] [place] [address] 10/16/2023 4:00 PM CDT Telemedicine [address] [address] Belgica Mosley PsyD, ROXI [address] [place] [address] 10/30/2023 4:00 PM CDT Telemedicine [address] [address] Belgica [place]ley [place], [place] [id number] [place] [address] 11/13/2023 4:00 PM CDT Telemedicine [address] [address] [place], [place] [id number] [place] [address] 11/27/2023 4:00 PM CDT Telemedicine [address] [address] Bel[place], [place] [id number] [place] [address] 12/11/2023 4:00 PM CDT Telemedicine [address] [address] Belg[place], [place] [phone] [place] [address] Health Maintenance Due Date Last Done Comments Pneumococcal series for age 6-64 (1 of 2 - PCV) 07/16/1971 HIV for age 15-65 1980 Hepatitis C screening for ag e 18-79 07/16/1983 Zoster (shingles) series for age 50+ (1 of 2) 07/16/2015 Tetanus booster 07/02/2021 07/03/2011, 10/14, 04/10/2003 COVID-19 vaccine series ( season) 2022 01/08/2022, 02/22/2021, 07/23/2020, Additional history exists Influenza for age 50-64 12/15/2023 01/09/20 22, 02/22/2021, 01/14/2016, Additional history exists Depression screening for age 12+ 06/25/2024 06/26/2023, 06/13/2023, 06/09/2023, Additional history exists BMI (ht and wt on same day) for age 18+ 07/17/2024 07/18/2023, 06/03/2023, 05/14/2023, Additional history exists Colonoscopy through age 75 12/09/202512/09, 04/18/2016, 04/18/2016 Lipids for age 45-75 06/10/2028 06/10/2023, 09/05/2022, 12/07/2019, Additional history exists Tdap Completed 07/03/2011, 11/10/2008 Fecal testing non-DNA (FIT,FOBT,iFOBT) for age 45-75 Discontinued 12/04/2020 Goals Goal Patient Goal Type Associated Problems Recent Progress Patient-Stated? Author BLOOD PRESSURE - MAINTAINS BP less than 140/90 Blood Pressure Son Biswas, DO Procedures Procedure Name Priority Date/Time Associated Diagnosis Comments EKG 12 LEAD Today 07/18/2023 11:14 AM CDT Left arm numbness HEMOGLOBIN Routine 06/19/2023 10:07 AM GAME PRESERVE MANAGER Other iron deficiency anemia BASIC METABOLIC PANEL Routine 06/19/2023 10:07 AM GAME PRESERVE MANAGER HTN (hypertension) Arteriosclerotic heart disease (ASHD) SCAN-CARDIAC STRIP 06/15/2023 11 :01 AM GAME PRESERVE MANAGER BASIC METABOLIC PANEL Early AM 06/15/2023 5:18 AM GAME PRESERVE MANAGER SCAN-CARDIAC STRIP 06/15/2023 4: 53 AM GAME PRESERVE MANAGER SCAN-CARDIAC STRIP 06/14/2023 7: 39 PM GAME PRESERVE MANAGER EKG 12 LEAD Routine 06/14/2023 5:49 PM GAME PRESERVE MANAGER SCAN-CARDIAC STRIP 06/14/2023 3: 30 PM GAME PRESERVE MANAGER SCAN-CARDIAC STRIP 06/14/2023 11 :49 AM GAME PRESERVE MANAGER HCHG ACTIVATED CLOTTING TM CV Timed 06/14/2023 9:48 AM GAME PRESERVE MANAGER HCHG ACTIVATED CLOTTING TM CV Timed 06/14/2023 9:05 AM GAME PRESERVE MANAGER CVL CORONARY ANGIOGRAM POSS PCI Routine 06/14/2023 8:23 AM GAME PRESERVE MANAGER Cardiovascular symptoms SCAN-CARDIAC STRIP 06/14/2023 7: 38 AM GAME PRESERVE MANAGER BASIC METABOLIC PANEL Early AM 06/14/2023 6:53 AM GAME PRESERVE MANAGER SCAN-CARDIAC STRIP 06/13/2023 10 :27 PM GAME PRESERVE MANAGER SCAN-CARDIAC STRIP 06/13/2023 6: 37 PM GAME PRESERVE MANAGER EKG 12 LEAD BERNICE 06/13/2023 6:17 PM GAME PRESERVE MANAGER EKG 12 LEAD BERNICE 06/13/2023 10:15 AM GAME PRESERVE MANAGER EXTRA TUBE LAVENDER Today 06/13/2023 1 0:12 AM GAME PRESERVE MANAGER BASIC METABOLIC PANEL BERNICE 06/13/2023 10:11 AM GAME PRESERVE MANAGER LIPID PANEL Routine 06/10/2023 2:38 PM GAME PRESERVE MANAGER Abnormal nuclear stress test Hyperlipidemia, unspecified hyperlipidemia type COLONOSCOPY 12/09/2020 1:42 PM CDT OCCULT BLOOD IFOBT STOOL Routine 12/04/2020 1:52 PM CDT Anemia of unknown etiology from Last 3 Months or Most Recently Relevant to Health Maintenance Results * EKG 12 LEAD (07/18/2023 11:14 AM CDT) Only the most recent of4 resultswithin the time period is included. Interpretation Normal sinus rhythm Inferior infarct (cited on or before 13-JUN-2023) Abnormal ECG When compared with ECG of 14-JUN-2023 17:49, No significant change was found Ventricular Rate 62 BPM Atrial Rate 62 BPM P-R Interval 182 ms QRS Duration 96 ms QT 390 ms QTc 395 ms P [place] 48 degrees R [place] -3 degrees T [place] 37 degrees 07/18/2023 11:1 4 AM CDT 07/24/2023 6:57 PM CDT Blanca Peraza NP EKG ORD * (ABNORMAL) HEMOGLOBIN (06/19/2023 10:07 AM GAME PRESERVE MANAGER) HEMOGLOBIN 13.4(L) 13.5 - 17.5 g/dL 06/19/2023 10:16 AM GAME PRESERVE MANAGER [facility] MCV 84 80 - 100 fL 06/19/2023 10:16 AM GAME PRESERVE MANAGER [facility] Blood BLOOD SPECIMEN / Unknown Butterfly / Unknown 06/19/2023 10:07 AM GAME PRESERVE MANAGER 06/19/2023 10:11 AM [facility] Son Castillo DO HEMATOLOGY [facility] [address] [place] [address], * (ABNORMAL) BASIC METABOLIC PANEL (06/19/2023 10:07 AM GAME PRESERVE MANAGER) Only the most recent of4 resultswithin the time period is included. Pathologist [facility] SODIUM 139 136 - 145 mmol/L 06/19/2023 5:50 PM [facility] POTASSIUM 4.2 3.5 - 5.1 mmol/L 06/19/2023 5:50 PM [facility] CHLORIDE 98 98 - 107 mmol/L 06/19/2023 5:50 PM [facility] CO2,TOTAL 28 22 - 29 mmol/L 06/19/2023 5:50 PM [facility] ANION GAP 13 5 - 18 06/19/2023 5:50 PM [facility] GLUCOSE 214(H) 70 - 99 mg/dL 06/19/2023 5:50 PM [facility] CALCIUM 9.2 8.6 - 10.0 mg/dL 06/19/2023 5:50 PM [facility] BUN 15 6 - 20 mg/dL 06/19/2023 5:50 PM [facility] CREATININE 1.44(H) 0.70 - 1.20 mg/dL 06/19/2023 5:50 PM [facility] BUN/CREAT RATIO 10 10 - 20 5:50 PM GAME PRESERVE MANAGER [facility] eGFR 57(L) >90 mL/min/1.7 3m2 06/19/2023 5:50 PM GAME PRESERVE MANAGER [facility] Comment:As of 2021, eG FR is calculated by the CKD-EPI creatinine equation without race adjustment. ??eGFR can be influenced by muscle mass, exercise, and diet. ??The reported eGFR is an estimation only and is only applicable if the renal function is stable. Blood BLOOD SPECIMEN / Unknown Butterfly / Unknown 06/19/2023 10:07 AM GAME PRESERVE MANAGER 06/19/2023 10:11 AM GAME PRESERVE MANAGER Son Castillo DO [facility] [address] [place] [address], * SCAN-CARDIAC STRIP (06/15/2023 11:01 AM GAME PRESERVE MANAGER) Scanner OTHER * SCAN-CARDIAC STRIP (06/15/2023 4:53 AM GAME PRESERVE MANAGER) Scanner OTHER * SCAN-CARDIAC STRIP (06/14/2023 7:39 PM GAME PRESERVE MANAGER) Scanner OTHER * SCAN-CARDIAC STRIP (06/14/2023 3:30 PM GAME PRESERVE MANAGER) Scanner OTHER * SCAN-CARDIAC STRIP (06/14/2023 11:49 AM GAME PRESERVE MANAGER) Scanner OTHER * (ABNORMAL) ACTIVATED CLOTTING TIME [id number] ACT (06/14/2023 9:48 AM GAME PRESERVE MANAGER) Only the most recent of2 resultswithin the time period is included. [facility] ACTIVATED CLOTTING TIME, POCT 282(H) 74 - 125 sec 06/14/2023 8:26 PM GAME PRESERVE MANAGER [facility] Blood BLOOD SPECIMEN / Unknown 06/14/2023 9:48 AM GAME PRESERVE MANAGER 06/14/2023 8:26 PM GAME PRESERVE MANAGER Kalee JOSUE HEMATOLOGY [facility] [address] [place] [address], * CVL CORONARY ANGIOGRAM POSS PCI (06/14/2023 8:23 AM GAME PRESERVE MANAGER) Anatomical Region Laterality Modality X-Ray Angiograph y, X-Ray Angiography 06/14/2023 8:23 AM GAME PRESERVE MANAGER Narrative Transcriptions Marilyn Nath MD - 06/14/2023 10:09 AM CST [facility] Cardiac Catheterization Report Name: WINDY COOPER Event Date: 06/14/2023 08:23 [facility] ID #: [id number] [place] #: [id number] Diagnostic Physician: MARILYN NATH [facility] [place] Interventional Physician: MARILYN NATH [facility] [place] Referring Physician: Primary Care Physician: SON CASTILLO Date: 1965 Gender: Male Age: 57 Summary/Conclusions PRESENTATION / INDICATIONS * Abnormal stress test with anterolateral ischemia, prior PCI of theRCA. DIAGNOSTIC - CORONARY * Heavily calcified coronary arteries. * The left main artery has mild disease. * The LAD has diffuse mild to moderate disease, severe disease in largefirst diagonal branch. * The circumflex artery has mild to moderate disease. * The RCA is dominant with diffuse mild disease, patent stent. VASCULAR ACCESS * Using ultrasound guidance and a percutaneous technique, the right radialartery was accessed. Ultrasound was used to confirm vessel patency,localizing needle into the lumen of the vessel. An image was saved for themedical record. INTERVENTION ? Successful IVUS guided 2mm x 12mm Balloon, 2.5mm x 12mm Balloon, 2.5mmx 10mm Cutting Balloon, 3mm x 12mm Lithotripsy Balloon, 3mm x 15mm DrugEluting Stent, and 3.5mm x 8mm Balloon to 1st Diagonal, post stenosis 0% RECOMMENDATIONS & PLAN * Optimize risk factors and medications * Plavix for at least 6 months Consent & [place] Protocol The risks, benefits, and alternatives of the procedure were discussed withthe patient and written informed consent was obtained. [place] protocol was followed. TIME OUT conducted just prior tostarting procedure confirmed patient identity, site/side, procedure,patient position, and availability of correct equipment and implants (ifapplicable). Staff Name Title MARILYN NATH Diagnostic Rn Relief Charge Mary Grace Yao RN Nurse Asif Silveira CVT Scrub Judith Arreguin CLOTH WASHER BACK TENDER Scrub Ezra Ernandez CVT Monitor Chip, Toy CVT Monitor Lexi Frausto Fellow MARILYN NATH Pony Worker Procedures ? Ultrasound Guided Vascular Access ? Coronary Angiogram ? Coronary Ultrasound ? Stent Placement, Drug Eluting [PCI] ? Transluminal Intravascular Lithotripsy, Coronary [PCI] Diagnostic Findings * Left Anterior Descending ? 20% stenosis in the Proximal LAD. ? 50% stenosis in the Mid LAD. ? 60% stenosis in the Distal LAD. ? 90% (denovo) stenosis in the 1st Diagonal. The lesion has a ERMIAS flowof 3. * Circumflex ? 30% stenosis in the Mid Circumflex. ? 50% stenosis in the 2nd Marginal. * Right Coronary Artery ? 30% stenosis in the Proximal RCA. Lesion Information Lesion # Vessel Segment Lesion Length Lesion Details Proximal RCA Mid LAD Distal LAD 2nd Marginal Mid Circumflex Proximal LAD 1 1st Diagonal 11 Hemodynamics State: Baseline Pressures (mmHg) Site Systolic Diastolic End Diastolic A Wave V Wave Mean AO 160 85 116 Interventional Results * Left Anterior Descending ? Successful intervention to the 1st Diagonal 90% lesion with a finalstenosis of 0% using a 2mm x 12mm Balloon, 2.5mm x 12mm Balloon, 2.5mmx 10mm Cutting Balloon, IVUS, 3mm x 12mm Balloon, 3mm x 15mm DrugEluting Stent, and a 3.5mm x 8mm Balloon. The final ERMIAS flow was 3. Interventional Devices Lesion # Vessel Segment Type Name Max Pressure 1 1st Diagonal Cutting Balloon BLLN AngioSculpt Gomez 2.5x10mm 1 1st Diagonal Drug Eluting Stent AMILCAR BALBINA [place] RX [id number] 1 1st Diagonal Balloon BLLN EUPHORA RX [id number] 1 1st Diagonal Balloon BLLN EUPHORA [place] RX 2.5MM X 12MM 1 1st Diagonal IVUS CATH IVUS [facility] [place] 1 1st Diagonal Balloon BLLN SHOCK[place] [id number] 1 1st Diagonal Balloon BLLN EUPHORA NC RX 3.5MM X 8MM Procedure Details Estimated Blood Loss: < 30 ml Specimen Collected: None Level of Sedation Achieved: Moderate Procedure Start: 08:23 Procedure End: 09:48 Procedure Time: 85 min Fluoroscopy Time: 19.6 min Cumulative Air Kerma: 1405 mGy DAP: 8060 uGy/M2 Contrast: Omnipaque (low-osmolar), 160 ml Physiologic Data Weight: 127.0 kg BSA: 2.31 m2 Vascular Access Time Access Sheath Size 08:25 Right Radial Artery, sheath inserted Complications ? No Complications Medications Ordered and Administered Start Time Stop Time Medication Dose Units Route Ordered By Given By 08:22 Fentanyl 50 mcg IV Marilyn Nath Leesa RN 08:22 Versed 1 mg IV Marilyn Nath Leesa RN 08:24 1% Lidocaine 1.5 ml Subcut Marilyn Nath Gauravpal 08:29 Verapamil 3 mg IA Marilyn Nath Gauravpal 08:30 Nitroglycerin 300 mcg IA Marilyn Nath Gauravpal 08:38 Heparin 5000 units IV Marilyn Nath Yale L 08:42 Versed 0.5 mg IV Marilyn Nath Leesa RN 08:42 Fentanyl 25 mcg IV Marilyn Nath Leesa RN 08:45 Nitroglycerin 200 mcg IC Marilyn Nath Gauravpal 08:57 Heparin 5000 units IV Marilyn Nath Leesa RN 09:30 Heparin 2000 units IV Marilyn Nath Leesa RN 09:48 Verapamil 3 mg IA Marilyn Nath Yale L 09:49 Plavix 300 mg PO Marilyn Nath Leesa RN I personally monitored the patient?s conscious sedation during theprocedure. Conscious sedation starts with the first sedation medication dose ofFentanyl or Versed and ends when the procedure is completed, the patientis stable for recovery status, and the physician or other qualified healthcare professional providing the sedation ends personal [id number] time with the patient. The medications listed above were verbally ordered by me and read back tome as documented above. Refer to the procedure log report for additional case details. electronically signed on 06/14/2023 10:09:16 AM with status of Final Marilyn Nath MD [facility] [address] [place] [id number] [place] [address] (p) [phone](f) Provider Referring CV IMAGING * SCAN-CARDIAC STRIP (06/14/2023 7:38 AM GAME PRESERVE MANAGER) Scanner OTHER * SCAN-CARDIAC STRIP (06/13/2023 10:27 PM GAME PRESERVE MANAGER) Scanner OTHER * SCAN-CARDIAC STRIP (06/13/2023 6:37 PM GAME PRESERVE MANAGER) Scanner OTHER * EXTRA TUBE LAVENDER (06/13/2023 10:12 AM GAME PRESERVE MANAGER) Blood BLOOD SPECIMEN / Unknown Extra Tube / Unknown 06/13/2023 10:12 AM GAME PRESERVE MANAGER 06/13/2023 10:23 AM GAME PRESERVE MANAGER Doctor Unknown [facility] [address] [place] [address], * (ABNORMAL) LIPID PANEL (06/10/2023 2:38 PM GAME PRESERVE MANAGER) Pathologist [facility] CHOLESTEROL,TOTAL 172 100 - 199 mg/dL 06/10/2023 9:06 PM GAME PRESERVE MANAGER [facility] Comment: Cholesterol, Total Reference Ranges Desirable <200 mg/dL Borderline 200-239 mg/dL High >=240 mg/dL TRIGLYCERIDES 311(H) <150 mg/dL 06/10/2023 9:06 PM GAME PRESERVE MANAGER [facility] HDL CHOLESTEROL 30(L) >40 mg/dL 9:06 PM GAME PRESERVE MANAGER [facility] NON-HDL CHOLESTEROL 142 <145 mg/dl 06/10/2023 9:06 PM GAME PRESERVE MANAGER [facility] CHOL/HDL RATIO 5.73(H) <4.50 06/10/2023 9:06 PM GAME PRESERVE MANAGER [facility] LDL CHOLESTEROL 80 <=130 mg/dL 06/10/2023 9:06 PM GAME PRESERVE MANAGER [facility] VLDL CHOLESTEROL 62(H) <=30 mg/dL 06/10/2023 9:06 PM GAME PRESERVE MANAGER [facility] PROVIDER ORDERED STATUS RANDOM 06/10/2023 9:06 PM GAME PRESERVE MANAGER [facility] Blood BLOOD SPECIMEN / Unknown Venipuncture / Unknown 06/10/2023 2:38 PM GAME PRESERVE MANAGER 06/10/2023 2:43 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 [address], * COLONOSCOPY (12/09/2020 1:42 PM CDT) 12/09/2020 1:42 PM CDT Narrative Transcriptions Edwina Godinez MD - 12/09/2020 2:33 PM CDT [facility] Patient Name: Windy Cooper Procedure Date: 12/09/2020 Gender: Male Date of : 1965 Admit Type: Inpatient Procedure: Colonoscopy Proceduralist: Edwina Godinez [facility] Referring MD: Son Castillo Indications/Pre-Op Diagnosis: Iron deficiency anemia Medications: Monitored Anesthesia Care Procedure Description: The patient had risks, benefits and alternatives explained to andgave informed consent. The patient had a stable cardiopulmonary status and judged an adequate candidate for conscious sedation. The endoscope was passed through the anus and advanced to theterminal ileum. The colonoscopy was performed without difficulty. The patient tolerated the procedure well. The quality of the bowel preparationwas good. Complications: No immediate complications. Estimated blood loss: Minimal. Estimated Blood Loss & Specimen: Estimated blood loss was minimal. Specimen collected: Yes and sent to Laboratory Findings: The terminal ileum appeared normal. I only saw the very distalportion. Could not advance further due to looping. Three sessile polyps were found in the ascending colon. The polypswere 5 to 7 mm in size. These polyps were removed with a cold snare. Resection and retrieval were complete. Estimated blood loss wasminimal. Two sessile polyps were found in the transverse colon. The polypswere 5 to 6 mm in size. These polyps were removed with a cold snare.Resection and retrieval were complete. Estimated blood loss was minimal. Two sessile polyps were found in the descending colon. The polypswere 5 to 6 mm in size. These polyps were removed with a cold snare.Resection and retrieval were complete. Estimated blood loss was minimal. One sessile polyp was found in the sigmoid colon. This was removedwith a cold snare. Resection and retrieval were complete. Estimated blood loss was minimal. The exam was otherwise without abnormality. Impressions/Post-Op Diagnosis: - The examined portion of the ileum was normal. - Three 5 to 7 mm polyps in the ascending colon, removed with a cold snare. Resected and retrieved. - Two 5 to 6 mm polyps in the transverse colon, removed with a cold snare. Resected and retrieved. - Two 5 to 6 mm polyps in the descending colon, removed with a cold snare. Resected and retrieved. - Two polyps in the sigmoid colon, removed with a cold snare.Resected and retrieved. - The examination was otherwise normal. Recommendation: Suspect that large gastric polyp seen on EGD (s/p polypectomy) was source of anemia. - Resume previous diet. - Await pathology results - likely repeat colon in 3 years - GI will sign off. Please call with questions. Edwina Godinez, 12/09/2020 2:33:23 PM This report has been signed electronically. Note Initiated On: 12/09/2020 1:42 PM Edwina Godinez MD PROCEDURE ORD * OCCULT BLOOD IFOBT STOOL (12/04/2020 1:52 PM CDT) STOOL BLOOD ,IFOBT Negative Negative 12/13/2020 10:29 AM CDT [facility] Stool STOOL SPECIMEN / Unknown Non-Blood / Unknown 12/04/2020 1:52 PM CDT 12/12/2020 1:52 PM CDT Son Castillo DO [facility] [address] [place] [address], from Last 3 Months or Most Recently Relevant to Health Maintenance Advance Directives * Full Code (Latest Code Status on File) Date Activated Date Inactivated Comments 06/13/2023 11:24 AM 06/15/2023 2:57 PM Question Answer Comments Code Status Discussion: Reviewed Preferences * Full Code Date Activated Date Inactivated Comments 06/13/2023 11:01 AM 06/13/2023 11:24 AM Question Answer Comments Code Status Discussion: Unable to Assess Preferences, Provider to review later * Full Code Date Activated Date Inactivated Comments 11/14/2022 11:33 AM 11/14/2022 5:07 PM Question Answer Comments Code Status Discussion: Discussed * Full Code Date Activated Date Inactivated Comments 12/08/2020 3:06 PM 12/10/2020 5:46 PM Question Answer Comments Code Status Discussion: Discussed * Full Code Date Activated Date Inactivated Comments 04/21/2020 2:43 PM 04/28/2020 12:42 PM Question Answer Comments Code Status Discussion: Per Existing Order Care Teams Retread Builder Relationship Specialty Start Date End Date Son Castillo DO [address] [place] [address] PCP - General Family Practice 03/13/12 Eddie Moulton MD Internal Medicine Sleep Medicine 02/29/12 Diego Walker MD [address] [place] [address] Sports Medicine 02/29/12
--- OUTSIDE RECORDS SUMMARY | 2023-09-09 00:35 | XMS_ITS | Continuity of Care Document ---
Author Organization [facility] Address [address] [place] [address] Phone Care Team Providers Care Color Artist Name Role Phone Azael Rodgers MD Unavailable [...] Available - Active Procedures Procedure Date Office/Outpatient Visit,[facility] 2014 Advance Directives Directive Yes / No Effective Date File Name No Information Encounters Encounter Description Practice Location Reason(s) For Visit Diagnoses Date Provider Providers Copied on Encounter [facility], [address], [place], [id number], [place] tel:[phone] [facility] No Information 6 Mehbod Amir. [facility], [address], [place], [place], [id number] , [place]. [phone] Office/Outpat ient Visit,[facility], [address], [place], [id number], [place] tel:[phone] [facility] No Information 5 Mehbod Amir. [facility], [address], [place], [place], [id number] , [place]. tel:[phone] Family History Family Member Type Diagnosis Age At Onset Problem (finding) Payers Payer name Insurance type Covered libertarian ID Authoriza tion(s) Medicare MB [id number] Social History Type Description Quantity Date Captured [...]
--- OUTSIDE RECORDS SUMMARY | 2023-09-09 00:35 | XMS_ITS | Data Portability ---
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 Name Role Phone SON CASTILLO Primary Care Provider Assessment Encounter Date Assessment Date Assessment LastModified by Organization Details LastModified Time 06/12/2022 06/12/2022 Assessment: Chronic Low back pain Possible S1 radiculopathy Facet arthropathy Bilateral SIJ disease Given imaging, L5/S1 spondylolisthesi s, possible stenosis with neurogenic claudication Mild Muscle weakness #chronic low back pain, L5/S1 spondylolisthesi s, possible stenosis with neurogenic claudication -PT 12 sessions, 2X/week for 6 weeks, as prescribed below -Electro-acupunc ture 1X/week for 6 weeks -Bilateral LE EMG/NCS to rule out S1 radiculopathy #Mild Muscle weakness -PT as described below #Facet arthropathy -PT as described below #Possible S1 radiculopathy -Bilateral LE EMG/NCS - PT #Bilateral Sacroiliac Joint Disease -Bilateral SIJ INJ x3 -PT to focus on gluteal muscle strengthening #Follow up -RTC PM&R 6 weeks Therapy prescription (Please note the progression included below): Type of therapy: PT Frequency: 2x week Duration 6 weeks Precautions: Avoid extreme ROM Please strengthen entire bilateral glute complex (med, min, max). Avoid modalities. Avoid stretching. Please spend the entire session on increasing neuromuscular gluteal recruitment and strengthening. Please use the following progression: 1. First, please use stabilized, isolated isometric neuromuscular recruitment techniques (Can you feel my finger on your glute? Good. Now contract that muscle.) 2. Then, once proficient at step 1, progress to unstablilized but still isometric, isolated muscle contractions. 3. Then progress to stabilized isolated concentric/eccen tric movements. 4. Then move to unstabilized isolated concentric/eccen tric. 5. Can progress eventually to multijoint, functional, integrated lower extremity movements and neuromuscular reeducation. Education: HEP [email or web address] Not available 06/12/2022 16:21:40 Plan of Treatment Reminders Order Date Submit Date Provider Last Modified By Organization Details Last Modified Time Details Appointments None record ed. Lab None record ed. Referral None record ed. Procedures None record ed. Surgeries None record ed. Imaging None record ed. Medication Orders None record ed. Patient TargetsNo targets recorded. Patient Instructions Encounter Date Encounter Id Patient Instructions Last Modified By Organization Details Last Modified Time 06/12/2022 [id number] Conclusion: Dear colleagues, Thank you very much for the referral of the above mentioned patient to my office. I do appreciate your trust and referral. Following is my consultation report. Please do not hesitate to call me directly if you have any questions regarding this patient or need assistance to manage the patient. My office can give you my direct cell phone number for further communication. All questions are answered. Thank you for this referral. I appreciate your trust in referring this patient to me and I will stay in contact with you regarding the progress of this patient. I, Adrian Chapman, am serving as a scribe to document services personally performed by Dr. Samuels on 06/12/22 at 1:08PM. All documentation has been reviewed by Dr. Samuels. Synopsis: 06/12/22, EK, ANA: L MRI in ANA: chronic LBP, facet arthropathy, mild muscle weakness, L5/S1 listheisis, poss stenosis w alise, bilat SIJ dz: PT, ACUP, bilat SIJ INJ x3, BLE EMG/NCS, FU Today my immediate clinical staff and I spent 30 minutes preparing to see the patient, performing a physical exam, going over test results and educating and counseling patients, updating their history, placing orders, and documenting this visit in [place]. [email or web address] Not available 06/12/2022 15:50:41 Reason for Referral None Reported. Procedures Surgical History Date Name Laterality Status Provider Name and Address Organization Details Recorded Time 3 Joint Injection cancelled Ramona marin [facility] 06/28/2022 14:20:09 Imaging Results None recorded. Procedure Notes None recorded. Medical Equipment None Reported. Allergies No known drug allergies Medications Name Sig Start Date Stop Date Status Note LastModified by Organization Details LastModified Time atorvastatin 40 mg tablet active Not Available Not Available Not Available carvedilol 25 mg tablet active Not Available Not Available Not Available clonidine HCl 0.1 mg tablet active Not Available Not Available Not Available prednisone 10 mg tablet take 4 tablets by mouth once daily with food for 3 days, then take 3 tablets once daily for 3 days then 2 tablets for 3 days then 1 tablet d active Not Available Not Available N ot Available tizanidine 4 mg tablet TAKE ONE TABLET BY MOUTH EVERY SIX HOURS NEEDED FOR MUSCLE SPASM active Not Available Not Available No t Available lisinopril 20 mg tablet active Not Available Not Available Not Available prednisone 20 mg tablet active Not Available Not Available Not Available sertraline 100 mg tablet active Not Available Not Available Not Available clonazepam 1 mg tablet TAKE ONE TABLET BY MOUTH ONE TIME DAILY AT BEDTIME active Not Available Not Available N ot Available acetaminophe n 300 mg-codeine 30 mg tablet TAKE ONE OR TWO TABLETS BY MOUTH EVERY SIX HOURS NEEDED FOR PAIN. DO NOT EXCEED 4000MG OF ACETAMINOPH EN IN 24 HOURS. active Not Available Not Available No t Available clopidogrel 75 mg tablet TAKE ONE TABLET BY MOUTH EVERY DAY IN THE MORNING. active Not Available Not Available No t Available omeprazole 40 mg capsule,mo yed release active Not Available Not Available Not Available isosorbide mononitrate ER 60 mg tablet,exten ded release 24 hr TAKE ONE TABLET BY MOUTH ONE TIME DAILY active Not Available Not Available N ot Available famotidine 20 mg tablet active Not Available Not Available Not Available oxybutynin chloride ER 5 mg tablet,exten ded release 24 hr TAKE ONE TABLET BY MOUTH ONE TIME DAILY active Not Available Not Available N ot Available mirtazapine 15 mg tablet active Not Available Not Available Not Available methylpredni solone 4 mg tablets in a dose pack active Not Available Not Available No t Available potassium chloride ER 20 mEq tablet,exten ded release TAKE TWO TABLETS BY MOUTH TWICE DAILY with meals active Not Available Not Available No t Available Vitals Date Recorded Body height Body temperature Heart rate Oxygen saturation Oxygen saturation in Arterial blood by Pulse oximetry Body mass index (BMI) Body weight Systolic blood pressure Diastolic blood pressure Provider Name and Address Organization Details Last Updated DateTime 3 167.64 cm 99.7 [degF] 74 /min 95 % 95 % 38.7 kg/m2 448522. 17 g 191 mm[Hg] 100 mm[Hg] Adrian Chapman [place] - [facility] 13:25:54 Social History Question Answer Notes LastModified by Organizat ion Details LastModified Time Tobacco Smoking Status Former Smoker Adrian marin, [place] - [facility] 06/12/2022 13:29:05 What Is Your Level Of Alcohol Consumption? None Information not available 06/12/2022 Are You Currently Employed? No Information not available 06/12/2022 When Did You Quit Smoking? 16+yearssin celastcigar ette Information not available 06/12/2022 What Was The Date Of Your Most Recent Tobacco Screening? 06/12/2022 Information not available 06/12/2022 Do You Use Any Illicit Or Recreational Drugs? No Information not available 06/12/2022 Has Tobacco Cessation Counseling Been Provided? No Information not available 06/12/2022 On What Date Was Tobacco Cessation Counseling Provided? 06/12/2022 Information not available 06/12/2022 Do You Or Have You Ever Used Any Other Forms Of Tobacco Or Nicotine? No Information not available 06/12/2022 Sex: Male Functional Status None recorded. Mental Status None recorded. Family History Relationship Description Onset Age of this Age Resolved Age Notes Mother Malignant neoplastic disease Father Heart disease Medical History No medical history recorded. Past Encounters Encounter ID Performer Location Encounter Start Date Encounter Closed Date Diagnosis/Indication Diagnosis SNOMED-CT Code [id number] [facility] [address] [address] 06/12/2022 12:51:29 06/12/2022 17:18:53 Chronic low back pain [id number] Health Concerns Section Related Observation LastModified by Organization Detai ls LastModified Time None Recorded Concern Status LastModified by Organization Details LastModified Time None Recorded Advance Directives Directive None Recorded Payers Encounter Date Sequence Insurance Name Policy Number Policy Camacho Covered Member ID Camacho Member ID Guarantor Name 06/12/2022 1 [facility] (MEDICARE REPLACEMENT/A DVANTAGE - PPO) [id number] Windy Cooper [id number] Windy Cooper Notes Date Note Type Note Provider Name and Address Organization Details Recorded Time 06/12/2022 text/html HPI Notes: Windy COOPER 56yo M 1965 #[id number] Chief Complaint: Low back pain History of Present Illness: The patient is a 56 year old male with a past medical history of COVID who presents for initial evaluation of low back pain. Today the patient reports low back pain rated 7-8/10 which has been present for 30 years after a fall at work, radiating to RLE from anterior thigh down to the foot. He reports that his low back pain has worsened over the years. He reports self-medicating (cocaine, methamphetamine, marijuana/alcohol ) for his pain about 18 years ago. He reports a previous history of COVID. He reports having 4 HALLEY injections in the past, which helped for 3-4 days. 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 He reports being on 2 units of oxygen currently. He reports not being able to wean off of his oxygen. He reports increase in heart rate with activities. He reports a past history of pneumonia. Shopping cart sign postive. Standing and walking aggravates. Sitting alleviates. The patient reports taking tizanidine for pain relief at bed time, and states that his helped with his pain. The patient reports hearing about [employer], from a TV ad. The patient reports a previous heart attach (~3-4 years ago). The patient reports that his CPAP helps him sleep at night. Pain profile, reported by patient: Onset: chronic (~30 years) Location: LBP Duration: chronic Severity: LBP: 7-8/10 Social history, reported by patient: EtOH: no Drugs: no Smoking: former smoker ERIC [employer] - [employer] 06/12/2022 16:21:45
[2023-09-09 00:39] LABS: Chloride* 107 mmol/L (96-114)
[2023-09-09 00:40] LABS: Potassium* 5.8 mmol/L (3.6-5.1); Sodium* 139 mmol/L (135-149)
[2023-09-09 00:42] LABS: Anion Gap 7 mEq/L (7-15); Carbon Dioxide* 25 mmol/L (20-32); Creatinine* 1.7 mg/dL (0.5-1.5); Est. Creatinine Clearance* 44.28; Estimated Glomerular Filt Rate 46 ml/min
[2023-09-09 00:43] LABS: Blood Urea Nitrogen* 25 mg/dL (7-30); Calcium* 9.1 mg/dL (8.4-10.6); Glucose* 143 mg/dL (60-115)
[2023-09-09] MEDS: 0.9 % SODIUM CHLORIDE 1000 ml 1,000 ML IV ×2 (00:46→01:57)
[2023-09-09 00:50] LABS: D Dimer Quantitative* 0.22 ug/ml (0.00-0.50)
[2023-09-09 00:55] LABS: NT Pro B Type NatriureticPept* 156 pg/mL
[2023-09-09] MEDS: ALBUTEROL SULFATE 2.5 MG/3 ML VIAL.NEB NEB (01:59)
[2023-09-09] MEDS: DEXTROSE 50 % SYRINGE IVP ×2 (02:01→09:04)
[2023-09-09] MEDS: CALCIUM GLUC 1,000MG/50 ML 1,000 MG/50 ML BAG 100 MG IVPB ×2 (02:10→09:02)
[2023-09-09] MEDS: SODIUM ZIRCONIUM CYCLOSILICATE 10 GM PO ×2 (02:22→09:31)
[2023-09-09 02:53] LABS: Troponin, Point-of-Care* 0.01 ng/ml (0.01-0.04)
[2023-09-09 03:00] LABS: Chloride* 112 mmol/L (96-114); Potassium* 5.7 mmol/L (3.6-5.1); Sodium* 139 mmol/L (135-149)
[2023-09-09 03:03] LABS: Anion Gap 3 mEq/L (7-15); Blood Urea Nitrogen* 24 mg/dL (7-30); Calcium* 8.3 mg/dL (8.4-10.6); Carbon Dioxide* 24 mmol/L (20-32); Creatinine* 1.6 mg/dL (0.5-1.5); Est. Creatinine Clearance* 47.05; Estimated Glomerular Filt Rate 50 ml/min
[2023-09-09 03:09] LABS: Glucose* 106 mg/dL (60-115)
--- NOTE | 2023-09-09 05:40 | W.PM.THH&P_ITS ---
Telehealth- H&P: HPI History of Present Illness Date Seen: 09/09/23 Chief complaint: Feelings of Low Blood Pressure Narrative: Windy Harrison is seen as an Interactive Telehealth visit. Windy Harrison is a 58 year old male who presented to the emergency room with feelings of low blood pressure. Birdget has a significant past medical history of chronic lung disease due to injury from COVID-19 on chronic home oxygen, borderline personality disorder, dependent personality disorder, depression, GERD, hypertension, coronary artery disease status post coronary artery stenting and hyperlipidemia. Bridget states that he was watching TV earlier this evening when he started to feel somewhat lightheaded. He states that he asked his to get the blood pressure cuff and he noted his blood pressure to be quite low. He states that he continued to feel off and with his ongoing low blood pressure, he presented to the emergency room for further evaluation and treatment. In the emergency room he was found to have systolic blood pressures in the 70s and 80s and was also found to have worsened renal failure with significant hyperkalemia. He was treated with aggressive IV fluids, insulin and dextrose, albuterol and also Lokelma. His creatinine and hyperkalemia did slowly start to improve and he is currently being admitted to the medical service for ongoing evaluation and treatment. At the time I am seeing Bridget, he does admit to the above history. He states that he has been drinking a fair amount of Pepsi and does not usually drink much for water. He states he ate a fair amount of watermelon over the last 2 days but really has not had much other intake for fluids. He denies any recent chest pain or shortness of breath. He rarely drinks alcohol and had only half of his mixed drink earlier tonight. He otherwise has not normally had problems with low blood pressure as his blood pressure usually runs somewhat elevated. He otherwise denies any other acute complaints or problems at the time I am seeing him. Review of Systems Status of ROS: Reports: 10 or more systems reviewed and unremarkable except as noted in History and below [facility] Medical History On home oxygen therapy ?Z99.81 - Dependence on supplemental oxygen (ICD-10) Post-viral cough syndrome ?R05.8 - Other specified cough (ICD-10) Acute respiratory failure with hypoxia ?J96.01 - Acute respiratory failure with hypoxia (ICD-10) 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 - Dependent personality disorder (ICD-10) Borderline personality disorder ?F60.3 - Borderline personality disorder (ICD-10) Major depressive disorder, recurrent episode, moderate ?F33.1 - Major depressive disorder, recurrent, moderate (ICD-10) Panic disorder without agoraphobia ?F41.0 - Panic disorder [episodic paroxysmal anxiety] (ICD-10) [place] ?M89.8X9 - Other specified disorders of bone, unspecified site (ICD-10) DDD (degenerative disc disease) Pneumonia due to severe acute respiratory syndrome coronavirus 2 (SARS-CoV-2) ?U07.1 - COVID-19 (ICD-10) ?J12.82 - Pneumonia due to coronavirus disease 2019 (ICD-10) Microcytic anemia ?D50.9 - Iron deficiency anemia, unspecified (ICD-10) Adenomatous colon polyp ?D12.6 - Benign neoplasm of colon, unspecified (ICD-10) Dental infection ?K04.7 - Periapical abscess without sinus (ICD-10) GERD (gastroesophageal reflux disease) ?K21.9 - Gastro-esophageal reflux disease without esophagitis (ICD-10) Adrenal adenoma ?D35.00 - Benign neoplasm of unspecified adrenal gland (ICD-10) Acute hypoxemic respiratory failure ?J96.01 - Acute respiratory failure with hypoxia (ICD-10) Acute idiopathic gout ?M10.00 - Idiopathic gout, unspecified site (ICD-10) Vitamin D deficiency ?E55.9 - Vitamin D deficiency, unspecified (ICD-10) Arteriosclerotic cardiovascular disease ?I25.10 - Atherosclerotic heart disease of [place] coronary artery without angina pectoris (ICD-10) ACS (acute coronary syndrome) ?I24.9 - Acute ischemic heart disease, unspecified (ICD-10) Hypertension ?I10 - Essential (primary) hypertension (ICD-10) Social History What is your current living situation?: I presently have a place to live Problems where you live: no known problems Problems where you live details: na In the past 12 months, utilities in danger of being shut off: no In past 12 months, lack of transportation kept you from medical appts, meetings, work, or getting things needed for daily living: no In the past 12 mos, have been you worried that your food would run out before you had money to buy more?: never true In the past 12 mos, the food you bought just didn't last and you didn't have money to buy more?: never true Highest level of school completed/degree received: 12th grade, no diploma Smoking Status: Never smoker How often do you have a drink containing alcohol: monthly or less How many standard drinks containing alcohol do you have on a typical day: 1 or 2 How often do you have six or more drinks on one occasion: Never AUDIT-C Alcohol total score: 1 Non-prescribed substance use: denies use Caffeine: Yes (pepsi) How often does anyone, including family, friends and others, physically hurt you : never How often does anyone, including family, friends and others, insult or talk down to you: never How often does anyone, including family, friends and others, threaten you with harm: never How often does anyone, including family, friends and others, scream or curse at you: never service: No Meds Home Medications and Allergies Home Medications ?Medication ?Instructions ?Recorded ?Confirmed ?Type atorvastatin 40 mg tablet 40 mg PO HS 05/22/22 09/09/23 History carvedilol 25 mg tablet 25 mg PO Q12H 05/22/22 09/09/23 History cholecalciferol (vitamin D3) 25 1,000 unit PO .twice a week 05/22/22 09/09/23 History mcg (1,000 unit) tablet clonidine HCl 0.1 mg tablet 0.1 mg PO BID 05/22/22 09/09/23 History clopidogrel 75 mg tablet 75 mg PO DAILY 05/22/22 09/09/23 History cyanocobalamin (vitamin B-12) 1,000 mcg PO DAILY 05/22/22 09/09/23 History 1,000 mcg tablet (Vitamin B-12) famotidine 20 mg tablet 20 mg PO DAILY 05/22/22 09/09/23 History isosorbide mononitrate 60 mg 60 mg PO DAILY 05/22/22 09/09/23 History tablet,extended release 24 hr lisinopril 20 mg tablet 20 mg PO BID 05/22/22 09/09/23 History nitroglycerin 0.4 mg sublingual 0.4 mg sublingual Q5-15M PRN 05/22/22 09/09/23 History tablet (Nitrostat) omeprazole 40 mg capsule,delayed 40 mg PO DAILY 05/22/22 09/09/23 History release oxybutynin chloride 5 mg 5 mg PO DAILY 05/22/22 09/09/23 History tablet,extended release 24 hr potassium chloride 20 mEq 40 meq PO BID 05/22/22 09/09/23 History tablet,extended release tizanidine 4 mg tablet 4 mg PO HS 05/22/22 09/09/23 History escitalopram oxalate 10 mg tablet 10 mg PO DAILY 09/22/22 09/09/23 History aspirin 81 mg capsule 81 mg PO DAILY 09/09/23 09/09/23 History ergocalciferol (vitamin D2) 1,250 1,250 mcg PO DAILY 09/09/23 09/09/23 History mcg (50,000 unit) capsule (Vitamin D2) ezetimibe 10 mg tablet 10 mg PO DAILY 09/09/23 09/09/23 History mirtazapine 15 mg tablet 15 mg PO QPM 09/09/23 09/09/23 History spironolactone 25 mg tablet 25 mg PO DAILY 09/09/23 09/09/23 History Allergies Allergy/AdvReac Type Severity Reaction Status Date / Time methylprednisolone Allergy Intermediate Insomnia Verified 10/01/22 13:24 [From Medrol] acetaminophen [From Percocet] Allergy Verified 10/01/22 13:24 citalopram [From Celexa] Allergy Verified 10/01/22 13:24 diphenhydramine Allergy Verified 10/01/22 13:24 [From Benadryl] morphine Allergy Verified 10/01/22 13:24 oxycodone [From Percocet] Allergy Verified 10/01/22 13:24 Exam Narrative Exam Narrative: Physical Exam GENERAL: vital signs reviewed, well developed and nourished, in no distress HEENT: pupils are equal round and reactive to light, extraocular movements are grossly within normal limits and oral mucosa is moist. NECK: Supple without lymphadenopathy or thyromegaly according to nursing staff examination observation HEART: Regular rate and rhythm without any rubs, murmurs or gallops. LUNGS: Clear to auscultation bilaterally with good air movement throughout ABDOMEN: Observation from nurse assisted exam, abdomen appears soft, nontender, and nondistended with Positive bowel sounds noted. Obesity is noted. EXTREMITIES: Strength and sensation is observed to be grossly within normal limits in the upper and lower extremities. No focal strength deficit is observed SKIN: Observed warm and dry with color normal NEURO: Alert, awake and oriented ?3. Answers all questions appropriately. No focal neuro deficits are noted. PSYCH: Affect normal Const Vital Signs, click to edit/add: Vital Signs - 24 hr 09/08/23 23:53 09/08/23 23:54 09/09/23 00:00 Temperature 96 F L Pulse Rate 61 65 Pulse Rate [Pulse Oximeter] 65 Pulse Rate [Right Pulse Oximeter] Respiratory Rate 16 Blood Pressure Blood Pressure [Left Arm] Blood Pressure [Left Upper Arm] 97/58 L Pulse Oximetry 94 95 97 Oxygen Delivery Method Room Air Oxygen Flow Rate 09/09/23 00:20 09/09/23 00:32 09/09/23 00:33 Temperature Pulse Rate 59 L 61 Pulse Rate [Pulse Oximeter] Pulse Rate [Right Pulse Oximeter] Respiratory Rate Blood Pressure Blood Pressure [Left Arm] Blood Pressure [Left Upper Arm] Pulse Oximetry 95 97 95 Oxygen Delivery Method Oxygen Flow Rate 09/09/23 00:34 09/09/23 00:43 09/09/23 00:44 Temperature Pulse Rate 67 66 Pulse Rate [Pulse Oximeter] Pulse Rate [Right Pulse Oximeter] Respiratory Rate Blood Pressure 83/51 L Blood Pressure [Left Arm] Blood Pressure [Left Upper Arm] Pulse Oximetry 95 99 97 Oxygen Delivery Method OxyMask Oxygen Flow Rate 09/09/23 00:45 09/09/23 01:00 09/09/23 01:13 Temperature Pulse Rate 58 L 55 L 58 L Pulse Rate [Pulse Oximeter] Pulse Rate [Right Pulse Oximeter] Respiratory Rate Blood Pressure 86/52 L Blood Pressure [Left Arm] Blood Pressure [Left Upper Arm] Pulse Oximetry 96 97 95 Oxygen Delivery Method Oxygen Flow Rate 09/09/23 01:15 09/09/23 01:16 09/09/23 01:17 Temperature Pulse Rate 55 L 56 L 55 L Pulse Rate [Pulse Oximeter] Pulse Rate [Right Pulse Oximeter] Respiratory Rate Blood Pressure 93/57 L Blood Pressure [Left Arm] Blood Pressure [Left Upper Arm] Pulse Oximetry 97 96 98 Oxygen Delivery Method Oxygen Flow Rate 09/09/23 01:30 09/09/23 01:32 09/09/23 01:45 Temperature Pulse Rate 54 L 54 L 53 L Pulse Rate [Pulse Oximeter] Pulse Rate [Right Pulse Oximeter] Respiratory Rate Blood Pressure 85/45 L Blood Pressure [Left Arm] Blood Pressure [Left Upper Arm] Pulse Oximetry 97 97 98 Oxygen Delivery Method Oxygen Flow Rate 09/09/23 01:47 09/09/23 02:00 09/09/23 02:01 Temperature Pulse Rate 53 L 55 L 53 L Pulse Rate [Pulse Oximeter] Pulse Rate [Right Pulse Oximeter] Respiratory Rate Blood Pressure 94/54 L 99/57 L Blood Pressure [Left Arm] Blood Pressure [Left Upper Arm] Pulse Oximetry 97 99 100 Oxygen Delivery Method Oxygen Flow Rate 09/09/23 02:15 09/09/23 02:16 09/09/23 02:17 Temperature Pulse Rate 53 L 51 L 52 L Pulse Rate [Pulse Oximeter] Pulse Rate [Right Pulse Oximeter] Respiratory Rate Blood Pressure 104/52 L Blood Pressure [Left Arm] Blood Pressure [Left Upper Arm] Pulse Oximetry 98 97 98 Oxygen Delivery Method Oxygen Flow Rate 09/09/23 02:32 09/09/23 02:33 09/09/23 02:45 Temperature Pulse Rate 50 L 56 L Pulse Rate [Pulse Oximeter] Pulse Rate [Right Pulse Oximeter] Respiratory Rate Blood Pressure 100/50 L Blood Pressure [Left Arm] Blood Pressure [Left Upper Arm] Pulse Oximetry 97 97 Oxygen Delivery Method Oxygen Flow Rate 09/09/23 02:46 09/09/23 03:00 09/09/23 03:01 Temperature Pulse Rate 52 L 56 L 52 L Pulse Rate [Pulse Oximeter] Pulse Rate [Right Pulse Oximeter] Respiratory Rate Blood Pressure 100/65 Blood Pressure [Left Arm] Blood Pressure [Left Upper Arm] Pulse Oximetry 96 97 98 Oxygen Delivery Method Oxygen Flow Rate 09/09/23 03:15 09/09/23 03:40 09/09/23 03:40 Temperature 96.8 F L Pulse Rate 54 L Pulse Rate [Pulse Oximeter] Pulse Rate [Right Pulse Oximeter] 56 L Respiratory Rate 20 20 Blood Pressure Blood Pressure [Left Arm] 123/75 Blood Pressure [Left Upper Arm] Pulse Oximetry 99 99 99 Oxygen Delivery Method OxyMask OxyMask Oxygen Flow Rate 5 5 Documenting provider has reviewed patient's vital signs: yes Hospitalist - H&P: Result Labs Labs: Short CBC 09/09/23 Range/Units 00:20 WBC 9.47 (4.50-11.00) K/uL Hgb 11.6 L (13.5-17.5) gm/dL Hct 35.7 L (37.0-53.0) % Plt Count 200 (140-440) K/uL BMP 09/09/23 09/09/23 00:20 02:35 Sodium 139 139 Potassium 5.8 H 5.7 H Chloride 107 112 Carbon Dioxide 25 24 BUN 25 24 Creatinine 1.7 H 1.6 H Glucose 143 H 106 Calcium 9.1 8.3 L ECG Attestation: I personally reviewed and interpreted this ECG as follows: Prior ECG tracings: available for review Interpretation: EKG shows sinus bradycardia without other sign of acute ischemia or infarction. Imaging Chest x-ray: Radiologist's impression: IMPRESSIONS: 1. Mild cardiomegaly is present. 2. Small lung volumes are present with mild reticulonodular opacity seen in the lower lung zones. Assessment and Plan Assessment and plan (1) Acute hypotension: Status: Acute (2) Acute renal insufficiency: Status: Acute (3) Acute hyperkalemia: Status: Acute Plan Assessment: 1. Acute kidney injury with history of chronic kidney disease with elevated creatinine over baseline 2. Volume depletion/dehydration likely contributing to #1 above 3. Acute hyperkalemia most likely due to #1 above 4. Relative hypotension with symptoms most likely due to #2 above 5. Relative bradycardia with volume depletion/dehydration question primary cardiac abnormality with no sign of acute ischemia or infarction currently 6. History of COVID-19 with subsequent chronic pulmonary fibrosis and oxygen dependence 7. Coronary artery disease with history of coronary artery stenting 8. Borderline and dependent personality disorder 9. Depressive disorder with panic disorder 10. Hypertension with relative hypotension 11. GERD 12. Hyperlipidemia 13. Chronic anemia most likely due to chronic disease currently at baseline with no sign of acute active bleeding Plan: At this time Bridget will be admitted to the medical service. It does appear that he has become quite volume depleted/dehydrated and thus causing him to have acute on chronic renal failure and subsequent hyperkalemia. He was given treatment for his hyperkalemia in the emergency room with albuterol, calcium gluconate, dextrose and insulin, and Lokelma. He was also given aggressive IV fluids for what looks to be acute volume depletion/dehydration and its effects. I will continue to follow-up with chemistries with special attention being paid to his creatinine and potassium. I will obviously hold any nephrotoxic medications including blood pressure medications with his relative hypotension and also any diuretics currently. I will ask pharmacy to reconcile his home medications and will reinstitute these as required. I will continue to provide supplemental oxygen for his chronic hypoxic respiratory condition. Will watch for any sign of infection or other reason for his acute kidney injury. I have counseled him on the use of soda/pop beverage instead of water for hydration and the possible current effects. I have relayed the plan to Bridget and he is agreeable to proceed. Will continue to watch closely from medical standpoint. I have discussed CODE STATUS and he does wish to be a full code. This will be ordered as per his wishes. Telehealth: Statement Statement Telehealth Visit: Today's History and Physical is provided via interactive telehealth by Tez Bernal MD.? Patient is located at [facility].? Provider is located at [facility].? Nursing staff assisted with the patient's exam. The visit being done today meets criteria for a telehealth visit and the patient or patient?s parent/guardian is aware the visit is a telehealth visit. Camera Start Time: 05:07 Camera End Time: 05:25
[2023-09-09 08:02] LABS: Chloride* 111 mmol/L (96-114); Sodium* 139 mmol/L (135-149)
[2023-09-09 08:05] LABS: Anion Gap 3 mEq/L (7-15); Blood Urea Nitrogen* 21 mg/dL (7-30); Carbon Dioxide* 25 mmol/L (20-32); Creatinine* 1.3 mg/dL (0.5-1.5); Est. Creatinine Clearance* 55.89; Estimated Glomerular Filt Rate 64 ml/min; Glucose* 113 mg/dL (60-115)
[2023-09-09 08:06] LABS: Calcium* 8.3 mg/dL (8.4-10.6)
[2023-09-09 08:13] LABS: Potassium* 6.8 mmol/L (3.6-5.1)
[2023-09-09 08:40] LABS: Magnesium* 1.8 mg/dL (1.5-2.6); Phosphorus* 3.6 mg/dL (2.5-4.5)
[2023-09-09 08:45] LABS: Potassium* 6.6 mmol/L (3.6-5.1)
[2023-09-09] MEDS: oxyBUTYnin chloride 5 MG TAB.ER.24 PO (09:15)
[2023-09-09] MEDS: CYANOCOBALAMIN (VITAMIN B-12) 500 MCG TABLET 1000 MCG PO (09:15)
[2023-09-09] MEDS: ISOSORBIDE MONONITRATE ER 30 MG TAB 60 MG PO (09:16)
[2023-09-09] MEDS: HEPARIN 5,000 UNIT/0.5 ML INJ 5000 UNIT SUBCUT ×2 (09:16→20:31)
[2023-09-09] MEDS: FAMOTIDINE 20 MG TABLET PO (09:16)
[2023-09-09] MEDS: CLOPIDOGREL 75 MG TABLET PO (09:16)
[2023-09-09] MEDS: ASPIRIN 81 MG TABLET EC PO (09:16)
[2023-09-09] MEDS: ESCITALOPRAM 10 MG TABLET PO (09:16)
[2023-09-09] MEDS: carvediloL 25 MG TABLET 12.5 MG PO ×2 (09:16→20:29)
[2023-09-09] MEDS: OMEPRAZOLE 20 MG CAPSULE DR 40 MG PO (09:16)
[2023-09-09] MEDS: 10 % DEXTROSE 500 ML 500 ML 50 ML IV (09:30)
[2023-09-09] MEDS: SODIUM CHLORIDE 0.9 % (FLUSH) 10 ML SYRINGE 5 ML IVF ×2 (09:31→20:37)
[2023-09-09] MEDS: EZETIMIBE 10 MG TABLET PO (09:31)
[2023-09-09 11:47] LABS: Chloride* 111 mmol/L (96-114); Sodium* 138 mmol/L (135-149)
[2023-09-09 11:48] LABS: Potassium* 5.5 mmol/L (3.6-5.1)
[2023-09-09 11:50] LABS: Creatinine* 1.2 mg/dL (0.5-1.5); Est. Creatinine Clearance* 60.55; Estimated Glomerular Filt Rate 70 ml/min
[2023-09-09 11:51] LABS: Anion Gap 2 mEq/L (7-15); Blood Urea Nitrogen* 20 mg/dL (7-30); Calcium* 8.6 mg/dL (8.4-10.6); Carbon Dioxide* 25 mmol/L (20-32); Glucose* 116 mg/dL (60-115)
[2023-09-09] MEDS: FUROSEMIDE 10 MG/ML inj 20 MG IVP (12:24)
--- NOTE | 2023-09-09 12:56 | P.IMPN_ITS ---
Progress Note: A&P Assessment and plan (1) Acute renal insufficiency: Problem details: Cause for this is uncertain. Possibly related to hypotension. Uncertain why he is having hypotension in this situation since he is chronically hypertensive. Continue to monitor for other causes of hypotension. Status: Acute (2) Acute hyperkalemia: Problem details: Presumably secondary to acute kidney injury and multiple medications to raise potassium. Potassium initially 5.8 and then with treatment went up to 6.8 before coming down to 5.5. Hold lisinopril, spironolactone, oral potassium. Likely the lisinopril and spironolactone can be restarted when his blood pressure allows and potassium allows. He is treated with Lokelma, insulin and glucose, calcium acutely. Status: Acute (3) Acute hypotension: Problem details: Cause is uncertain in this gentleman who has longstanding hypertension. He is clinically improving. Resume blood pressure medications as needed. Monitor for other causes of hypotension. Status: Acute (4) On home oxygen therapy: Problem details: Continue on home oxygen. Status: Acute (5) Hypertension: Problem details: Resume blood pressure medications as tolerated. Patient had evaluation for primary aldosteronism and does not have a classic presentation though his labs suggest some features of a primary hyperaldosteronism. Consider further evaluation by Nephrology or increasing spironolactone if needed for blood pressure control and potassium support. Status: Acute (6) Obstructive sleep apnea: Problem details: Has CPAP but does not use it. Strongly encouraged him to continue to try. Status: Acute (7) Morbid obesity with BMI of 45.0-49.9, adult: Problem details: Would benefit greatly from weight loss. Consider GLP 1 agonist. Status: Acute Plan Patient is admitted to the hospital for management of acute kidney injury, hyperkalemia, hypotension. Time Spent With Patient Total time spent: Total time spent today is 70 minutes, 50 minutes in coordination of care and discussing with patient other providers management of hyperkalemia, acute kidney injury, hypertension and hypotension and obesity Subjective Date Seen: 09/09/23 Interval history: Admission HPI: Windy Harrison is a 58 year old male who presented to the emergency room with feelings of low blood pressure. 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 Bridget states that he was watching TV earlier this evening when he started to feel somewhat lightheaded. He states that he asked his to get the blood pressure cuff and he noted his blood pressure to be quite low. He states that he continued to feel off and with his ongoing low blood pressure, he presented to the emergency room for further evaluation and treatment. In the emergency room he was found to have systolic blood pressures in the 70s and 80s and was also found to have worsened renal failure with significant hyperkalemia. He was treated with aggressive IV fluids, insulin and dextrose, albuterol and also Lokelma. His creatinine and hyperkalemia did slowly start to improve and he is currently being admitted to the medical service for ongoing evaluation and treatment. At the time I am seeing Bridget, he does admit to the above history. He states that he has been drinking a fair amount of Pepsi and does not usually drink much for water. He states he ate a fair amount of watermelon over the last 2 days but really has not had much other intake for fluids. He denies any recent chest pain or shortness of breath. He rarely drinks alcohol and had only half of his mixed drink earlier tonight. He otherwise has not normally had problems with low blood pressure as his blood pressure usually runs somewhat elevated. He otherwise denies any other acute complaints or problems at the time I am seeing him. He has a history of hypokalemia and hypertension. He is being treated for hypertension with lisinopril 20 mg b.i.d., spironolactone 25 mg daily, amlodipine 5 mg twice daily, carvedilol 25 mg twice daily, clonidine 0.1 mg twice daily, isosorbide 120 mg daily and also potassium chloride 40 mg b.i.d.. Attempts to treat him with diuretics, thiazides and loop diuretics, in the past have caused problems with hypokalemia. He has had evaluation for primary aldosteronism. This spring he had an undetectable Renin activity level and aldosterone level of 17.6. He has seen Cardiology and Nephrology about his difficult to control hypertension. Evaluation showed no renal artery stenosis and test for pheochromocytoma was negative. He has untreated sleep apnea. Formally he drink heavily but reports drinking minimal alcohol since he had COVID a few years ago. This spring he had an abnormal stress test and underwent coronary angiogram with placement of a stent. Had 2 previous stents in his right coronary artery in 2018 Patient does not know his medications. His manages his medications and sets them up in a pillbox. He takes his medications twice a day and he reports he is reliable about doing this. 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 September 08: Patient reports continued to feel fine. He is not having any shortness of breath or chest pain. He reports no nausea or vomiting or diarrhea. He has been eating normally. He does acknowledge drinking a lot of Pepsi and eating a lot of watermelon recently. He has had no fever. He did have 1 alcoholic beverage last night but otherwise is not been drinking recently. Exam Narrative: Exam Narrative: He is alert and appears in no distress. Speech is normal. Oropharynx notable for small airway. Neck is supple without mass or adenopathy. Respirations are clear to auscultation. Cardiovascular: S1, S2, regular rate and rhythm. Abdomen: Bowel sounds active. Abdomen is soft without tenderness or mass. Extremities with trace edema. Intact pedal pulses. Const: Vital Signs, click to edit/add: Vital Signs - 24 hr 09/08/23 23:53 09/08/23 23:54 09/09/23 00:00 Temperature 96 F L Pulse Rate 61 65 Pulse Rate [Pulse Oximeter] 65 Pulse Rate [Right Pulse Oximeter] Respiratory Rate 16 Blood Pressure Blood Pressure [Le ft Arm] Blood Pressure [Le ft Upper Arm] 97/58 L Pulse Oximetry 94 95 97 Oxygen Delivery Me thod Room Air Oxygen Flow Rate 09/09/23 00:20 09/09/23 00:32 09/09/23 00:33 Temperature Pulse Rate 59 L 61 Pulse Rate [Pulse Oximeter] Pulse Rate [Right Pulse Oximeter] Respiratory Rate Blood Pressure Blood Pressure [Le ft Arm] Blood Pressure [Le ft Upper Arm] Pulse Oximetry 95 97 95 Oxygen Delivery Me thod Oxygen Flow Rate 5 09/09/23 00:34 09/09/23 00:43 09/09/23 00:44 Temperature Pulse Rate 67 66 Pulse Rate [Pulse Oximeter] Pulse Rate [Right Pulse Oximeter] Respiratory Rate Blood Pressure 83/51 L Blood Pressure [Le ft Arm] Blood Pressure [Le ft Upper Arm] Pulse Oximetry 95 99 97 Oxygen Delivery Me thod OxyMask Oxygen Flow Rate 5 09/09/23 00:45 09/09/23 01:00 09/09/23 01:13 Temperature Pulse Rate 58 L 55 L 58 L Pulse Rate [Pulse Oximeter] Pulse Rate [Right Pulse Oximeter] Respiratory Rate Blood Pressure 86/52 L Blood Pressure [Le ft Arm] Blood Pressure [Le ft Upper Arm] Pulse Oximetry 96 97 95 Oxygen Delivery Me thod Oxygen Flow Rate 09/09/23 01:15 09/09/23 01:16 09/09/23 01:17 Temperature Pulse Rate 55 L 56 L 55 L Pulse Rate [Pulse Oximeter] Pulse Rate [Right Pulse Oximeter] Respiratory Rate Blood Pressure 93/57 L Blood Pressure [Le ft Arm] Blood Pressure [Le ft Upper Arm] Pulse Oximetry 97 96 98 Oxygen Delivery Me thod Oxygen Flow Rate 09/09/23 01:30 09/09/23 01:32 09/09/23 01:45 Temperature Pulse Rate 54 L 54 L 53 L Pulse Rate [Pulse Oximeter] Pulse Rate [Right Pulse Oximeter] Respiratory Rate Blood Pressure 85/45 L Blood Pressure [Le ft Arm] Blood Pressure [Le ft Upper Arm] Pulse Oximetry 97 97 98 Oxygen Delivery Me thod Oxygen Flow Rate 09/09/23 01:47 09/09/23 02:00 09/09/23 02:01 Temperature Pulse Rate 53 L 55 L 53 L Pulse Rate [Pulse Oximeter] Pulse Rate [Right Pulse Oximeter] Respiratory Rate Blood Pressure 94/54 L 99/57 L Blood Pressure [Le ft Arm] Blood Pressure [Le ft Upper Arm] Pulse Oximetry 97 99 100 Oxygen Delivery Me thod Oxygen Flow Rate 09/09/23 02:15 09/09/23 02:16 09/09/23 02:17 Temperature Pulse Rate 53 L 51 L 52 L Pulse Rate [Pulse Oximeter] Pulse Rate [Right Pulse Oximeter] Respiratory Rate Blood Pressure 104/52 L Blood Pressure [Le ft Arm] Blood Pressure [Le ft Upper Arm] Pulse Oximetry 98 97 98 Oxygen Delivery Me thod Oxygen Flow Rate 09/09/23 02:32 09/09/23 02:33 09/09/23 02:45 Temperature Pulse Rate 50 L 56 L Pulse Rate [Pulse Oximeter] Pulse Rate [Right Pulse Oximeter] Respiratory Rate Blood Pressure 100/50 L Blood Pressure [Le ft Arm] Blood Pressure [Le ft Upper Arm] Pulse Oximetry 97 97 Oxygen Delivery Me thod Oxygen Flow Rate 09/09/23 02:46 09/09/23 03:00 09/09/23 03:01 Temperature Pulse Rate 52 L 56 L 52 L Pulse Rate [Pulse Oximeter] Pulse Rate [Right Pulse Oximeter] Respiratory Rate Blood Pressure 100/65 Blood Pressure [Le ft Arm] Blood Pressure [Le ft Upper Arm] Pulse Oximetry 96 97 98 Oxygen Delivery Me thod Oxygen Flow Rate 09/09/23 03:15 09/09/23 03:40 09/09/23 03:40 Temperature 96.8 F L Pulse Rate 54 L Pulse Rate [Pulse Oximeter] Pulse Rate [Right Pulse Oximeter] 56 L Respiratory Rate 20 20 Blood Pressure Blood Pressure [Le ft Arm] 123/75 Blood Pressure [Le ft Upper Arm] Pulse Oximetry 99 99 99 Oxygen Delivery Me thod OxyMask OxyMask Oxygen Flow Rate 5 5 09/09/23 08:20 09/09/23 09:45 09/09/23 11:23 Temperature 97.6 F 98.3 F Pulse Rate 59 L Pulse Rate [Pulse Oximeter] Pulse Rate [Right Pulse Oximeter] 75 61 Respiratory Rate 18 18 Blood Pressure Blood Pressure [Le ft Arm] 155/77 H 156/77 H Blood Pressure [Le ft Upper Arm] Pulse Oximetry 99 99 Oxygen Delivery Me thod OxyMask OxyMask Oxygen Flow Rate 3 2 Documenting provider has reviewed patient's vital signs: yes Labs Labs: Laboratory Results - last 24 hr 09/09/23 09/09/23 09/09/23 00:01 00:20 02:35 WBC 9.47 RBC 3.96 L Hgb 11.6 L Hct 35.7 L MCV 90 MCH 29 MCHC 33 RDW Coeff of Maria Luisa 13.7 Plt Count 200 Neut % (Auto) 64.6 Lymph % (Auto) 24.5 [place] % (Auto) 7.0 Eos % (Auto) 3.2 Baso % (Auto) 0.0 Neut # (Auto) 6.12 Lymph # (Auto) 2.32 [place] # (Auto) 0.70 Eos # (Auto) 0.30 Baso # (Auto) 0.00 Abs Immat Gran (auto) 0.07 Imm/Tot Granulo (auto) 0.7 D-Dimer Quant (PE/DVT) 0.22 Sodium 139 139 Potassium 5.8 H 5.7 H Chloride 107 112 Carbon Dioxide 25 24 Anion Gap 7 3 L BUN 25 24 Creatinine 1.7 H 1.6 H Estimated Creat Clear 44.28 47.05 Estimated GFR 46 50 Glucose 143 H 106 Lactate 1.6 Calcium 9.1 8.3 L Phosphorus 3.6 Magnesium 1.8 NT-Pro-B Natriuret Pep 156 Lab Acknowledgement POC Troponin I 0.00 L 09/09/23 09/09/23 09/09/23 02:40 07:12 07:35 WBC RBC Hgb Hct MCV MCH MCHC RDW Coeff of [place]isa Plt Count Neut % (Auto) Lymph % (Auto) [place] % (Auto) Eos % (Auto) Baso % (Auto) Neut # (Auto) Lymph # (Auto) [place] # (Auto) Eos # (Auto) Baso # (Auto) Abs Immat Gran (auto) Imm/Tot Granulo (auto) D-Dimer Quant (PE/DVT) Sodium 139 Potassium 6.8 H* Chloride 111 Carbon Dioxide 25 Anion Gap 3 L BUN 21 Creatinine 1.3 Estimated Creat Clear 55.89 Estimated GFR 64 Glucose 113 Lactate Calcium 8.3 L Phosphorus Magnesium NT-Pro-B Natriuret Pep Lab Acknowledgement Test Added POC Troponin I 0.01 09/09/23 09/09/23 08:26 11:30 WBC RBC Hgb Hct MCV MCH MCHC RDW Coeff of [place]isa Plt Count Neut % (Auto) Lymph % (Auto) [place] % (Auto) Eos % (Auto) Baso % (Auto) Neut # (Auto) Lymph # (Auto) [place] # (Auto) Eos # (Auto) Baso # (Auto) Abs Immat Gran (auto) Imm/Tot Granulo (auto) D-Dimer Quant (PE/DVT) Sodium 138 Potassium 6.6 H* 5.5 H Chloride 111 Carbon Dioxide 25 Anion Gap 2 L BUN 20 Creatinine 1.2 Estimated Creat Clear 60.55 Estimated GFR 70 Glucose 116 H Lactate Calcium 8.6 Phosphorus Magnesium NT-Pro-B Natriuret Pep Lab Acknowledgement POC Troponin I
[2023-09-09 15:52] LABS: Potassium* 5.1 mmol/L (3.6-5.1)
[2023-09-09] MEDS: MIRTAZAPINE 15 MG TABLET PO (17:42)
--- NOTE | 2023-09-09 18:43 | PC.NURSE ---
End of Shift [id number]: The patient is alert and orientated and pleasant with interactions. VS on 2L via oxy mask chronically... BP is HTN upon assessment. Dry intermittent cough the patient reports is chronic to him. The patients potassium was rechecked this AM and was extremely elevated @ 6.7... Orders received and were completed for an EKG, Tele, Ca, D5 via push, insulin, lasix and continuos D10 fluids. The patient was asymptomatic. Rechecks throughout the day and K has return with normal range. Saline locked. Poor PO fluid intake... although the patient is trying to drink more water. Blood sugars were stable during checks. The patient is unmotivated and remains in bed throughout the day... himself and his state that this is normal for him. I let them know that PT and OT will assess his mobility tomorrow. The also reports that they don't have many friends due to his isolation after long COVID. Using the urinal in bed to void. Call light within reach. Judith ARIAS BSN
[2023-09-09] MEDS: ATORVASTATIN CALCIUM 40 MG TABLET PO (20:30)
[2023-09-09] MEDS: AMLODIPINE 5 MG TABLET PO (20:30)
[2023-09-09] MEDS: TIZANIDINE HCL 4 MG TABLET PO (20:30)
[2023-09-09] MEDS: cloNIDine HCL 0.1 MG TABLET PO (20:33)
[2023-09-10 03:53] VITALS: BP 140/80; PULSE 63; RESP 19; TEMP 36.5; O2SAT 95
[2023-09-10 04:14] VITALS: PULSE 79
--- NOTE | 2023-09-10 06:32 | PC.NURSE ---
End of shift [id number]: A&O pleasant and cooperative. Pt sleepy throughout shift stating he did not get much sleep last night. Pt joking and laughing with this evening. Pt woke up in the middle of the night stating he had a nightmare and punched the table. He states is hand is sore. Chronically on 2-4 liters of oxygen via oxymask at home. Using urinal in bed although encouraged to bet up to use the bathroom. VSS w/ sats >90% on 2 liters oxymask. Using call light appropriately.
[2023-09-10 06:46] LABS: Basophils Absolute Auto 0.01 K/uL (0.00-0.30); Basophils Percent Auto 0.1 % (0.0-3.0); Eosinophils Absolute Auto 0.39 K/uL (0.00-0.50); Eosinophils Percent Auto 4.3 % (0.0-7.0); Hematocrit 34.9 % (37.0-53.0); Hemoglobin* 11.8 gm/dL (13.5-17.5); Immature Granulocytes Abs Auto 0.04 K/uL (0.00-0.30); Immature Granulocytes Pct Auto 0.4 %; Lymphocytes Absolute Auto 1.84 K/uL (0.90-2.90); Lymphocytes Percent Auto 20.5 % (20-44); Mean Corpuscular HGB Conc 34 gm/dL (32-36); Mean Corpuscular Hemoglobin 30 pg (26-34); Mean Corpuscular Volume 88 fL (80-100); Monocytes Percent Auto 7.8 % (0.0-11.0); Neutrophils Absolute Auto 6.01 K/uL (1.7-7.0); Neutrophils Percent Auto 66.9 % (42.0-72.0); Platelet Count* 176 K/uL (140-440); RDW Coefficient of Variation % 13.5 % (11.5-15.5); Red Blood Count 3.95 m/uL (4.30-5.90); White Blood Count* 8.99 K/uL (4.50-11.00)
[2023-09-10 06:51] LABS: Slide Review Reflex No
[2023-09-10 06:57] VITALS: PULSE 64
[2023-09-10 07:00] VITALS: PULSE 64
[2023-09-10 07:09] LABS: Chloride* 107 mmol/L (96-114)
[2023-09-10 07:10] LABS: Albumin* 4.1 g/dL (3.3-5.0); Potassium* 4.8 mmol/L (3.6-5.1); Sodium* 139 mmol/L (135-149)
[2023-09-10 07:12] LABS: Anion Gap 5 mEq/L (7-15); Carbon Dioxide* 27 mmol/L (20-32); Creatinine* 1.2 mg/dL (0.5-1.5); Est. Creatinine Clearance* 60.55; Estimated Glomerular Filt Rate 70 ml/min
[2023-09-10 07:13] LABS: Alanine Aminotransferase* 24 U/L (4-50); Alkaline Phosphatase* 134 U/L (40-150); Aspartate Amino Transferase* 19 U/L (12-35); Bilirubin Direct* 0.4 mg/dL (0.0-0.5); Bilirubin Total* 0.8 mg/dL (0.1-1.5); Blood Urea Nitrogen* 18 mg/dL (7-30); Calcium* 8.7 mg/dL (8.4-10.6); Glucose* 123 mg/dL (60-115); Total Protein* 7.3 g/dL (6.0-8.3)
[2023-09-10 07:30] VITALS: BP 167/73; PULSE 68; RESP 18; TEMP 36.3; O2SAT 95
[2023-09-10] MEDS: ISOSORBIDE MONONITRATE ER 30 MG TAB 60 MG PO (08:50)
[2023-09-10] MEDS: AMLODIPINE 5 MG TABLET PO (08:50)
[2023-09-10] MEDS: EZETIMIBE 10 MG TABLET PO (08:51)
[2023-09-10] MEDS: oxyBUTYnin chloride 5 MG TAB.ER.24 PO (08:51)
[2023-09-10] MEDS: FAMOTIDINE 20 MG TABLET PO (08:51)
[2023-09-10] MEDS: carvediloL 25 MG TABLET PO (08:51)
[2023-09-10] MEDS: ASPIRIN 81 MG TABLET EC PO (08:51)
[2023-09-10] MEDS: ESCITALOPRAM 10 MG TABLET PO (08:51)
[2023-09-10] MEDS: cloNIDine HCL 0.1 MG TABLET PO (08:51)
[2023-09-10] MEDS: CYANOCOBALAMIN (VITAMIN B-12) 500 MCG TABLET 1000 MCG PO (08:51)
[2023-09-10] MEDS: CLOPIDOGREL 75 MG TABLET PO (08:51)
[2023-09-10] MEDS: OMEPRAZOLE 20 MG CAPSULE DR 40 MG PO (08:51)
[2023-09-10] MEDS: HEPARIN 5,000 UNIT/0.5 ML INJ 5000 UNIT SUBCUT (08:52)
[2023-09-10] MEDS: SODIUM CHLORIDE 0.9 % (FLUSH) 10 ML SYRINGE 5 ML IVF (08:52)
[2023-09-10 10:57] VITALS: BP 155/82; PULSE 70; RESP 20; TEMP 36.4; O2SAT 95
[2023-09-10] MEDS: SPIRONOLACTONE 25 MG TABLET PO (12:13)
--- NOTE | 2023-09-10 14:02 | PM.DS1 ---
DS: Providers Provider Date Seen: 09/10/23 Date of admission: 09/09/23 05:36 Primary care physician: Jazmyn Clark DO Admitting Clinician: Tez Bernal MD Attending Physician on discharge: Ponce Bethea MD Date of Discharge: 09/10/23 DS: Diagnosis Discharge Diagnosis (1) Acute hyperkalemia: Status: Acute Problem details: Presumably secondary to acute kidney injury and multiple medications to raise potassium. Potassium initially 5.8 and then with treatment went up to 6.8 before coming down to 5.5. Hold lisinopril, spironolactone, oral potassium. Likely the lisinopril and spironolactone can be restarted when his blood pressure allows and potassium allows. He is treated with Lokelma, insulin and glucose, calcium acutely. Potassium improved from a high of 6.8 yesterday to 4.8 today at discharge. Discussed moderation with intake of watermelon which he may be eating to excess. (2) Acute renal insufficiency: Status: Acute Problem details: Cause for this is uncertain. Possibly related to hypotension noted on admission. Uncertain why he is having hypotension in this situation since he is chronically hypertensive despite aggressive treatment. Continue to monitor for other causes of hypotension. He has been mildly hypertensive for the past day prior to discharge. Home medications are being restarted. (3) Acute hypotension: Status: Acute Problem details: Cause is uncertain in this gentleman who has longstanding hypertension. He is clinically improving. Now hypertensive. Resume blood pressure medications as needed. Evaluation did not show other causes of hypotension such as infection, blood loss. (4) On home oxygen therapy: Status: Acute Problem details: Continue on home oxygen. During his hospital stay he was observed to have O2 sats in the low 90s without obvious dyspnea on room air while I was talking with him. Consider revisiting need for chronic home oxygen. (5) Hypertension: Status: Acute Problem details: Resume blood pressure medications as tolerated. Patient had evaluation for primary aldosteronism and does have a classic presentation (hard to control blood pressure and hypokalemia). Earlier this year he had a normal aldosterone of around 17 with a suppressed/undetectable Renin activity. Further evaluation by Nephrology on September 24. (6) Obstructive sleep apnea: Status: Acute Problem details: Has CPAP but does not use it. Strongly encouraged him to continue to try. Respiratory therapy talked with him about strategies to improved tolerance. (7) Morbid obesity with BMI of 45.0-49.9, adult: Status: Acute Problem details: Would benefit greatly from weight loss. Consider GLP 1 agonist. DS: Summary Hospital Course Hospital Course: 58-year-old male admitted to the hospital with hypotension and hyperkalemia and acute kidney injury. He was feeling well on the day of admission except he felt a little lightheaded so he checked his blood pressure. Blood pressures were in the 80s over 50s. Because this he came to the emergency room for evaluation. There he was found to have low blood pressure, elevated potassium and elevated creatinine. He was given IV fluids, insulin, glucose, calcium, Lokelma, Lasix and his spironolactone, potassium and lisinopril were held. With this treatment he normalized his potassium and his creatinine and his blood pressure. Discharge he is potassium is 4.8, creatinine 1.2 and his blood pressure is 155/82. His manages his medications and she tells me that he has been very compliant, and that because she manages them, she thinks it is unlikely that he got excessive doses or missed any doses of medications. No other obvious explanation. He does eat very large amounts of watermelon and advised moderation with this as it is potassium containing. There was no other evidence of illness/sepsis/other cause of hypotension to explain his problems. He will be discharged to home on his same medications except I have held the potassium and lisinopril. He will resume spironolactone and other medications unchanged. He is to follow-up at the hospital with me in 2 days for recheck of his basic metabolic panel and blood pressure. He is to follow up next week in clinic for recheck of his basic metabolic panel and blood pressure. 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 I expect he will likely resume problems with hypertension and hypokalemia and will need restart of his lisinopril. Status at Discharge Functional status at discharge: independent ambulation Overall status at discharge: patient is back to baseline Time Spent with Patient Time attestation: Total time spent providing and/or coordinating discharge services: 40 minutes Time spent: Greater than 30 minutes Exam Narrative: Exam Narrative: He is alert and appears in no distress. Respirations are clear to auscultation. Cardiovascular: S1, S2, regular rate and rhythm. No murmur gallop or rub. Abdomen: Bowel sounds active. Abdomen is soft without tenderness. Const: Vital Signs, click to edit/add: Vital Signs - 24 hr 09/09/23 15:00 09/09/23 15:40 09/09/23 19:27 Temperature 98.7 F 96.9 F L Pulse Rate Pulse Rate [Right Pulse Oximeter] 70 77 Respiratory Rate 18 18 18 Blood Pressure [Le ft Arm] 126/61 144/78 H Pulse Oximetry 95 90 Oxygen Delivery Me thod OxyMask OxyMask Oxygen Flow Rate 2 2 09/09/23 19:36 09/09/23 22:42 09/09/23 22:52 Temperature Pulse Rate 74 Pulse Rate [Right Pulse Oximeter] 67 Respiratory Rate 18 18 Blood Pressure [Le ft Arm] 107/58 L Pulse Oximetry 92 Oxygen Delivery Me thod OxyMask Oxygen Flow Rate 2 09/10/23 03:53 09/10/23 04:14 09/10/23 06:57 Temperature 97.7 F Pulse Rate 79 64 Pulse Rate [Right Pulse Oximeter] 63 Respiratory Rate 19 Blood Pressure [Le ft Arm] 140/80 H Pulse Oximetry 95 Oxygen Delivery Me thod OxyMask Oxygen Flow Rate 2 09/10/23 07:00 09/10/23 07:30 09/10/23 10:57 Temperature 97.3 F L 97.6 F Pulse Rate 64 Pulse Rate [Right Pulse Oximeter] 68 70 Respiratory Rate 18 20 Blood Pressure [Le ft Arm] 167/73 H 155/82 H Pulse Oximetry 95 95 Oxygen Delivery Me thod OxyMask OxyMask Oxygen Flow Rate 2 2 Documenting provider has reviewed patient's vital signs: yes DS: Data Data Completed and Pending Labs on day of discharge: Labs from last 24 hours 09/10/23 09/09/23 06:20 15:32 WBC 8.99 RBC 3.95 L Hgb 11.8 L Hct 34.9 L MCV 88 MCH 30 MCHC 34 RDW Coeff of Maria Luisa 13.5 Plt Count 176 Neut % (Auto) 66.9 Lymph % (Auto) 20.5 [place] % (Auto) 7.8 Eos % (Auto) 4.3 Baso % (Auto) 0.1 Neut # (Auto) 6.01 Lymph # (Auto) 1.84 [place] # (Auto) 0.70 Eos # (Auto) 0.39 Baso # (Auto) 0.01 Abs Immat Gran (auto) 0.04 Imm/Tot Granulo (auto) 0.4 Sodium 139 Potassium 4.8 5.1 Chloride 107 Carbon Dioxide 27 Anion Gap 5 L BUN 18 Creatinine 1.2 Estimated Creat Clear 60.55 Estimated GFR 70 Glucose 123 H Calcium 8.7 Total Bilirubin 0.8 Direct Bilirubin 0.4 AST 19 ALT 24 Alkaline Phosphatase 134 Total Protein 7.3 Albumin 4.1 Imaging Chest x-ray: Radiologist's impression: INDICATION: Hypotension TECHNIQUE: Chest radiograph 3 views COMPARISON: None FINDINGS: The sensitivity and specificity of the exam are severely limited by the patient`s body habitus. Mediastinum: The mediastinum is normal in appearance. Mild cardiomegaly is present. Lung: Small lung volumes are present with mild reticulonodular opacity seen in the lower lung zones. No sign of pleural effusion seen. No pneumothorax is identified. Bone and Soft tissue: Unremarkable for age. IMPRESSIONS: 1. Mild cardiomegaly is present. 2. Small lung volumes are present with mild reticulonodular opacity seen in the lower lung zones. Discharge Plan Discharge Disposition: Home, Self-Care Date of Admission: 09/09/23 05:36 Attending Provider on Discharge: Man Bethea Primary Care Provider: Jazmyn Clark Condition: Improved Anticipated Discharge Date/Time: 09/10/23 12:01 Discharge Medications: Continued atorvastatin 40 mg tablet 40 mg PO HS carvedilol 25 mg tablet 25 mg PO Q12H clonidine HCl 0.1 mg tablet 0.1 mg PO BID clopidogrel 75 mg tablet 75 mg PO DAILY famotidine 20 mg tablet 20 mg PO BID isosorbide mononitrate 60 mg tablet extended release 24 hr 120 mg PO DAILY omeprazole 40 mg capsule,delayed release(DR/EC) 40 mg PO DAILY oxybutynin chloride 5 mg tablet extended release 24hr 5 mg PO DAILY tizanidine 4 mg tablet 4 mg PO HS cholecalciferol (vitamin D3) 25 mcg (1,000 unit) tablet 1,000 unit PO .twice a week cyanocobalamin (vitamin B-12) [Vitamin B-12] 1,000 mcg tablet 1,000 mcg PO DAILY nitroglycerin [Nitrostat] 0.4 mg tablet, sublingual 0.4 mg sublingual Q5-15M PRN Rx Instructions: do not exceed 3 doses per episode escitalopram oxalate 10 mg tablet 20 mg PO DAILY ezetimibe 10 mg tablet 10 mg PO DAILY aspirin 81 mg capsule 81 mg PO DAILY ergocalciferol (vitamin D2) [Vitamin D2] 1,250 mcg (50,000 unit) capsule 1,250 mcg PO .,TH; spironolactone 25 mg tablet 25 mg PO DAILY mirtazapine 15 mg tablet 15 mg PO HS amlodipine 5 mg tablet 5 mg PO BID clonazepam 1 mg tablet 1 mg PO HS PRN Discontinued lisinopril 20 mg tablet 20 mg PO BID potassium chloride 20 mEq tablet extended release 40 meq PO BID Discharge Orders: Discharge Order (Routine); Ordered 09/10/23 Ordered By: Man Bethea Patient Education: Hyperkalemia (DC), Hypotension (DC) Additional Instructions: Return to [facility] on , September 11, in the morning for a blood test and to talk to Dr. Bethea Activity Level: Activity as Tolerated Discharge Diet: Regular Follow Up Appointments: Jazmyn Clark DO [Primary Care Provider] - (See Dr. Clark or 1 of her partners in 1 week. Check basic metabolic panel at that time.) ANGEL RINCON DO [Referring] - 09/17/23 11:25 am ([facility] for follow- up, and basic metabolic panel.) Forms: Buzz Referrals Info Instructions
--- NOTE | 2023-09-10 14:05 | PC.NURSE ---
Pt alert and oriented. Pt had no complaints of pain. Pt up with SBA. Pt chronically on 2L with oximask oxygen saturations maintained in mid 90?s. Pt discharged home with . IV removed; catheter intact. Follow up appointment made Pt aware.
== END 2023-09-10 13:00 | disposition home or self-care (01) | DRG 683 ==
LOC: ED 09-09 03:21 → MEDSURG 09-09 03:33
PROVIDERS: Family Medicine; Admitting Provider Internal Medicine; Emergency Provider Family Medicine; PCP Family Medicine; Visit Provider Internal Medicine
DX: N17.9 Acute kidney failure, unspecified (principal); F33.1 Major depressive disorder, recurrent, moderate; Z68.42 Body mass index [BMI] 45.0-49.9, adult; I95.9 Hypotension, unspecified; E87.5 Hyperkalemia; G47.33 Obstructive sleep apnea (adult) (pediatric); E86.0 Dehydration; E66.01 Morbid (severe) obesity due to excess calories; Z99.81 Dependence on supplemental oxygen; I12.9 Hypertensive chronic kidney disease with stage 1 through stage 4 chronic kidney disease, or unspecified chronic kidney disease; N18.9 Chronic kidney disease, unspecified; K21.9 Gastro-esophageal reflux disease without esophagitis; F60.3 Borderline personality disorder; F60.7 Dependent personality disorder; I25.10 Atherosclerotic heart disease of native coronary artery without angina pectoris
CPT/HCPCS: 36415; 71046; 80048; 80076; 82947; 83605; 83735; 83880; 84100; 84132; 84484; 85025; 85379; 93005; 94640; 94761; 99285; A9270; J0613; J1644; J1940; J7030

== ENCOUNTER 2023-09-12 10:08 | Outpatient (CLI) | payer MEDICARE, SELFPAY ==
--- OUTSIDE RECORDS SUMMARY | 2023-09-12 10:11 | XMS_ITS | Continuity of Care Document ---
Author Organization [facility] Address [address] [place] [address] Phone Care Team Providers Care Survey Technologist Name Role Phone Azael Rodgers MD Unavailable [...] Available - Active Procedures Procedure Date Office/Outpatient Visit,[facility] 2014 Advance Directives Directive Yes / No Effective Date File Name No Information Encounters Encounter Description Practice Location Reason(s) For Visit Diagnoses Date Provider Providers Copied on Encounter [facility], [address], [place], [id number], [place] [phone] [facility] No Information 6 Mehbod Amir. [facility], [address], [place], [place], [id number] , [place]. [phone] Office/Outpat ient Visit,[facility], [address], [place], [id number], [place] tel:[phone] [facility] No Information 5 Mehbod Amir. [facility], [address], [place], [place], [id number] , [place]. tel:[phone] Family History Family Member Type Diagnosis Age At Onset Problem (finding) Payers Payer name Insurance type Covered alliance party ID Authoriza tion(s) Medicare MB [id number] Social History Type Description Quantity Date Captured [...]
--- OUTSIDE RECORDS SUMMARY | 2023-09-12 10:11 | XMS_ITS | Clinical Summary ---
Author Organization [facility] Address [address] [place] [address] Phone Care Team Providers Care Roading Engineer Name Role Phone Jazmyn Clark DO Primary [...] the morning. 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 Most recent finding 2020 1.4 cm. Debility 04/22/2020 Coronary arteriosclerosis 11/19/2017 Overview: - 11/18/17 acute [place], AMILCAR x 2 to RCA Body mass index 40+ - severely obese 02/14/2016 Acute gouty arthropathy 06/29/2015 Degeneration of lumbar intervertebral disc 07/08 Borderline personality disorder 11/26/2012 Vitamin D deficiency 03/07/2012 Panic disorder without agoraphobia 06/19/2011 Recurrent major depressive episodes, moderate Essential (primary) hypertension 11/08/2005 Esophageal reflux 11/08/2005 Encounters Date Type Department Care Team Description 09/09/2023 Orders Only [facility] [address] [place] [phone] Jimmy Leonard MD Essential (primary) hypertension; Chronic kidney disease, stage 2 (mild) 08/20/2023 Telephone [facility] [address] [place] [phone] Wanda Braun RN from Last 3 Months [...] Comments Blood Pressure 156/83 05/22/2023 10:06 AM UTILITY SALES REPRESENTATIVE Pulse 66 05/22/2023 10:06 AM UTILITY SALES REPRESENTATIVE Temperature - - Respiratory Rate - - Oxygen Saturation - - Inhaled Oxygen Concentration - - Weight 129 kg (285 lb) 05/22/2023 10:06 AM UTILITY SALES REPRESENTATIVE 1 week ago per patient Height 166.4 cm (5' 5.5) 05/22/2023 10 :06 AM UTILITY SALES REPRESENTATIVE Body Mass Index 46.71 05/22/2023 10:06 AM UTILITY SALES REPRESENTATIVE Plan of Treatment Upcoming Encounters Date Type Department Care Team (Late st Contact Info) Description 09/26/2023 10:30 AM EDT Office Visit [facility] [address] [place] [address] Jimmy Leonard MD [address] [place] [phone] Health Maintenance Due Date Last Done Comments [...] 02/22/2021, 12/27/2015, Additional history exists Care Teams Roading Engineer Relationship Specialty Start Date End Date [place] [address] PCP - General Family Medicine 04/30/23
--- OUTSIDE RECORDS SUMMARY | 2023-09-12 10:11 | XMS_ITS | Encounter Summary ---
Author Organization [facility] Address [address] [place] [address] Care Team Providers Care Features Reporter Name Role Phone Jazmyn Clark Primary Care Provider Unav ailable Encounter Details Date Type Department Care Team (Late st Contact Info) Description 08/20/2023 Telephone [facility] [address] [place] [address] Wanda Braun, RN [address] [place] [address] Social History Tobacco Use Types [...] [facility] [place] [address] [place] [address] Jimmy Leonard MD [address] [place] [address] documented as of this encounter Visit Diagnoses Not on filedocumented in this encounter Care Teams Features Reporter Relationship Specialty Start Date End Date Jazmyn Clark DO [address] [place] [address] PCP - General Family Medicine 04/30/23 documented as of this encounter
--- OUTSIDE RECORDS SUMMARY | 2023-09-12 10:11 | XMS_ITS | Encounter Summary ---
Author Organization [facility] [place] Address [address] [place] [address] Care Team Providers Care Net Programmer Name Role Phone Jazmyn Clark Primary Care Provider Unav ailable Encounter Details Date Type Department Care Team (Late st Contact Info) Description 09/09/2023 Orders Only [facility] [address] [facility] [address] [place] [address] Jimmy Leonard MD [address] [place] [address] Essential (primary) hypertension; Chronic kidney [...] [facility] [place] [address] [place] [address] Jimmy Leonard MD [address] [place] [address] documented as of this encounter Visit Diagnoses Diagnosis Essential (primary) hypertension Chronic kidney disease, stage 2 (mild) documented in this encounter Care Teams Net Programmer Relationship Specialty Start Date End Date Jazmyn Clark DO [address] [place] [address] PCP - General Family Medicine 04/30/23 documented as of this encounter
--- OUTSIDE RECORDS SUMMARY | 2023-09-12 10:12 | XMS_ITS | Clinical Summary ---
Author Organization [facility] Address [place], [place] [address] Care Team Providers Care Dog Catcher Name Role Phone Eddie Moulton MD Unavailable Diego Walker MD Unavailable [phone] Son Castillo DO Primary Care Provider Allergies Active Allergy [...] ting chronic decreased mobility and endurance 09/06/2022 [id number] syndrome manifesting as chronic dy spnea 09/06/2022 [...] disease (ASHD) 11/19/2017 Overview: - 11/18/17 acute [place], AMILCAR x 2 to RCA ACS (acute [...] hypertension 01/15/2007 05/06/2012 Overview: negative stress test [place] Esophageal reflux 01/15/2007 05/19/2011 Overview: esophagitis on EGD Calculus of gallbladder with out mention of cholecystitis or obstruction 01/15/2007 01/23/2014 Unspecified drug dependence, unspecified 11/08/2005 08/04/2017 Overview: Quit drinking 11/19 cardiac 1999 05/19/2011 Overview: negative stress test Encounters Date Type Department Care Team Description 09/06/2023 10:30 AM CDT Office Visit [facility] [address] [place] [address] Hari Wasserman, AuD Hearing Problem 09/06/2023 Travel 09/04/2023 4:00 PM CDT Telemedicine [facility] [address] [place] [address] Belgica Mosley PsyD, ROXI Telehealth 09/01/2023 Refill [facility] [address] [place] [address] Son Castillo, Refill Request (Famotidine) 08/23/2023 11:00 AM CDT Telemedicine [facility] [address] [place] [address] Belgica Mosley PsyD, ROXI Telehealth 08/20/2023 Orders Only [facility] [address] [place] [address] Son Castillo DO Outside Order (Ordered by Jimmy Leonard ) 08/14/2023 9:00 AM CDT Telemedicine [facility] [address] [place] [address] Belgica Mosley PsyD, ROXI Telehealth 08/08/2023 12:30 PM CDT Telemedicine [facility] [address] [place] [address] [address] [place] [address] Josefina Salcedo, JORGE LUIS Telehealth 08/07/2023 9:00 AM CDT Telemedicine [facility] [address] [place] [address] Belgica Mosley PsyD, LP Telehealth 07/31/2023 9:00 AM CDT Telemedicine [facility] [address] [place] [address] Belgica Mosley PsyD, LP Telehealth 07/29/2023 Refill [facility] [address] [place] [address] Son Castillo DO Refill Request (Potassium CL CR WM TB ) 07/24/2023 10:00 AM CDT Telemedicine [facility] [address] [place] [address] Belgica Mosley PsyD, ROXI Telehealth 07/18/2023 11:00 AM CDT Office Visit [facility] [address] [place] [address] Blanca Peraza NP Follow Up (1 month F/U, stent placed 06/13. Pt states BP has been lower but he has no strength. Can't do much for movement, stays in bed most of the day. Both hands feel a little tingly currently. Needs refill of ezetimibe if supposed to continue) 07/18/2023 Orders Only [facility] [address] [facility] [address] [place] [address] Blanca Peraza NP <No scans attached> 07/18/2023 Travel 07/17/2023 9:00 AM CDT Telemedicine [facility] [address] [place] [address] Belgica Mosley PsyD, LP Telehealth 06/26/2023 4:00 PM CDT Telemedicine [facility] [address] [place] [address] Belgica Mosley PsyD, LP Telehealth 06/26/2023 Travel 06/20/2023 Orders Only [facility] [address] [place] [address] Son Castillo DO <No scans attached> 06/19/2023 9:25 AM UTILITY OPERATOR Office Visit [facility] [address] [place] [address] Son Castillo DO Hospital F/U (stent placed) 06/19/2023 Travel 06/17/2023 Patient Outreach [facility] [address] [place] [address] Dawn Mark, RN Hospital F/U; Primary RN Care Management (LACE 21 ) 06/13/2023 Travel from Last 3 Months Immunizations Name Administration Dates Next Due COVID-19 vaccine (Pfizer-Bio NTech 30mcg/0.3mL) 12YO+ BIVALENT ASHANTI [place] 01/08/2022 COVID-19 vaccine (Socialeyes App-Bio NTech 30mcg/0.3mL) ASHANTI [place] 02/22/2021,07/23/2020,07/02/2020 Influenza, IIV3 (Age >=3 years) 01/14/2016 [...] T Respiratory Rate 18 06/15/2023 8:30 AM UTILITY OPERATOR Oxygen Saturation 98% 07/18/2023 11:12 AM CDT Inhaled Oxygen Concentration - - Weight 129.3 kg (285 lb) 07/18/2023 11:12 AM CDT Height 167.6 cm (5' 6) 07/18/2023 11:12 AM CDT Body Mass Index 46 07/18/2023 11:12 AM CDT Plan of Treatment Upcoming Encounters Date Type Department Care Team (Late st Contact Info) Description 09/17/2023 10:30 AM CDT Orders Only [facility] [address] [place] [address] [place] 09/17/2023 11:25 AM CDT Office Visit [facility] [address] [facility] [address] Jorge Sams DO [address] [place] [address] 09/18/2023 4:00 PM CDT Telemedicine [address] [address] [place] [phone] [place] [address] 10/02/2023 4:00 PM CDT Telemedicine [address] [address] [place] [phone] [place] [address] 10/15/2023 10:15 AM CDT Office Visit [facility] [address] [place] [phone] hRina Steiner MD [address] [facility] [address] [place], [place] [phone] 10/16/2023 4:00 PM CDT Telemedicine [address] [address] [place], [place] [address] [place] [address] 10/30/2023 4:00 PM CDT Telemedicine [address] [address] Belgica Mosley PsyD, LP [address] [place] [address] 11/13/2023 4:00 PM CDT Telemedicine [address] [address] Belgica Mosley PsyD, LP [address] [place] [address] 11/27/2023 4:00 PM CDT Telemedicine [address] [address] Belgica Mosley PsyD, LP [address] [place] [address] 12/11/2023 4:00 PM CDT Telemedicine [address] [address] Belgica Mosley PsyD, LP [address] [place] [address] Health Maintenance Due Date Last Done Comments [...] history exists Influenza for age 50-64 12/15/2023 01/09/20, 02/22/2021, 01/14/2016, Additional history exists Depression [...] BP less than 140/90 Blood Pressure No Son Castillo, DO Procedures Procedure Name Priority Date/Time Associated Diagnosis Comments EKG 12 LEAD Today 07/18/2023 11:14 AM CDT Left arm numbness HEMOGLOBIN Routine 06/19/2023 10:07 AM UTILITY OPERATOR Other iron deficiency anemia BASIC METABOLIC PANEL Routine 06/19/2023 10:07 AM UTILITY OPERATOR HTN (hypertension) Arteriosclerotic heart disease (ASHD) SCAN-CARDIAC STRIP 06/15/2023 11 :01 AM UTILITY OPERATOR BASIC METABOLIC PANEL Early AM 06/15/2023 5:18 AM UTILITY OPERATOR SCAN-CARDIAC STRIP 06/15/2023 4: 53 AM UTILITY OPERATOR SCAN-CARDIAC STRIP 06/14/2023 7: 39 PM UTILITY OPERATOR EKG 12 LEAD Routine 06/14/2023 5:49 PM UTILITY OPERATOR SCAN-CARDIAC STRIP 06/14/2023 3: 30 PM UTILITY OPERATOR SCAN-CARDIAC STRIP 06/14/2023 11 :49 AM UTILITY OPERATOR HCHG ACTIVATED CLOTTING TM CV Timed 06/14/2023 9:48 AM UTILITY OPERATOR HCHG ACTIVATED CLOTTING TM CV Timed 06/14/2023 9:05 AM UTILITY OPERATOR CVL CORONARY ANGIOGRAM POSS PCI Routine 06/14/2023 8:23 AM UTILITY OPERATOR Cardiovascular symptoms SCAN-CARDIAC STRIP 06/14/2023 7: 38 AM UTILITY OPERATOR BASIC METABOLIC PANEL Early AM 06/14/2023 6:53 AM UTILITY OPERATOR SCAN-CARDIAC STRIP 06/13/2023 10 :27 PM UTILITY OPERATOR SCAN-CARDIAC STRIP 06/13/2023 6: 37 PM UTILITY OPERATOR EKG 12 LEAD BERNICE 06/13/2023 6:17 PM UTILITY OPERATOR EKG 12 LEAD BERNICE 06/13/2023 10:15 AM UTILITY OPERATOR EXTRA TUBE LAVENDER Today 06/13/2023 1 0:12 AM UTILITY OPERATOR BASIC METABOLIC PANEL BERNICE 06/13/2023 10:11 AM UTILITY OPERATOR LIPID PANEL Routine 06/10/2023 2:38 PM UTILITY OPERATOR Abnormal nuclear stress test Hyperlipidemia, unspecified hyperlipidemia [...] QT 390 ms QTc 395 ms P Largo 48 degrees R Largo -3 degrees T Largo 37 degrees 07/18/2023 11:1 4 AM CDT 07/24/2023 6:57 PM CDT Blanca Peraza MANAGER CLIENT SERVICE EKG ORD * (ABNORMAL) HEMOGLOBIN (06/19/2023 10:07 AM UTILITY OPERATOR) HEMOGLOBIN 13.4(L) 13.5 - 17.5 g/dL 06/19/2023 10:16 AM UTILITY OPERATOR [facility] MCV 84 80 - 100 fL 06/19/2023 10:16 AM UTILITY OPERATOR [facility] Blood BLOOD SPECIMEN / Unknown Butterfly / Unknown 06/19/2023 10:07 AM UTILITY OPERATOR 06/19/2023 10:11 AM UTILITY OPERATOR Son Castillo DO HEMATOLOGY [facility] [address] [place] [address], * (ABNORMAL) BASIC METABOLIC PANEL (06/19/2023 10:07 AM UTILITY OPERATOR) Only the most recent of4 resultswithin the time period is included. Pathologist [facility] SODIUM 139 136 - 145 mmol/L 06/19/2023 5:50 PM [facility] POTASSIUM 4.2 3.5 - 5.1 mmol/L 06/19/2023 5:50 PM [facility] CHLORIDE 98 98 - 107 mmol/L 06/19/2023 5:50 PM [facility] CO2,TOTAL 28 22 - 29 mmol/L 06/19/2023 5:50 PM UTILITY OPERATOR [facility] ANION GAP 13 5 - 18 06/19/2023 5:50 PM [facility] GLUCOSE 214(H) 70 - 99 mg/dL 06/19/2023 5:50 PM [facility] CALCIUM 9.2 8.6 - 10.0 mg/dL 06/19/2023 5:50 PM [facility] BUN 15 6 - 20 mg/dL 06/19/2023 5:50 PM UTILITY OPERATOR [facility] CREATININE 1.44(H) 0.70 - 1.20 mg/dL 06/19/2023 5:50 PM UTILITY OPERATOR [facility] BUN/CREAT RATIO 10 10 - 20 5:50 PM UTILITY OPERATOR [facility] eGFR 57(L) >90 mL/min/1.7 3m2 06/19/2023 5:50 PM [facility] Comment:As of 2021, eG FR is calculated by the CKD-EPI creatinine equation without race adjustment. ??eGFR can be influenced by muscle mass, exercise, and diet. ??The reported eGFR is an estimation only and is only applicable if the renal function is stable. Blood BLOOD SPECIMEN / Unknown Butterfly / Unknown 06/19/2023 10:07 AM UTILITY OPERATOR 06/19/2023 10:11 AM UTILITY OPERATOR Son Castillo DO [facility] [address] [place] [address], * SCAN-CARDIAC STRIP (06/15/2023 11:01 AM UTILITY OPERATOR) Scanner OTHER * SCAN-CARDIAC STRIP (06/15/2023 4:53 AM UTILITY OPERATOR) Scanner OTHER * SCAN-CARDIAC STRIP (06/14/2023 7:39 PM UTILITY OPERATOR) Scanner OTHER * SCAN-CARDIAC STRIP (06/14/2023 3:30 PM UTILITY OPERATOR) Scanner OTHER * SCAN-CARDIAC STRIP (06/14/2023 11:49 AM UTILITY OPERATOR) Scanner OTHER * (ABNORMAL) ACTIVATED CLOTTING TIME [id number] ACT (06/14/2023 9:48 AM UTILITY OPERATOR) Only the most recent of2 resultswithin the time period is included. ACTIVATED CLOTTING TIME, POCT 282(H) 74 - 125 sec 06/14/2023 8:26 PM UTILITY OPERATOR [facility] Blood BLOOD SPECIMEN / Unknown 06/14/2023 9:48 AM UTILITY OPERATOR 06/14/2023 8:26 PM UTILITY OPERATOR Kalee JOSUE [facility]OLOGY [facility] [address] [place] [address], * CVL CORONARY ANGIOGRAM POSS PCI (06/14/2023 8:23 AM UTILITY OPERATOR) Anatomical Region Laterality Modality X-Ray Angiograph y, X-Ray Angiography 06/14/2023 8:23 AM UTILITY OPERATOR Narrative Transcriptions Marilyn Nath MD - 06/14/2023 10:09 AM CST [facility] Cardiac Catheterization Report Name: WIDNY COOPER Event Date: 06/14/2023 08:23 [facility] ID #: [id number] [place] #: [id number] Diagnostic Physician: MARILYN NATH [facility] Interventional Physician: MARILYN NATH [facility] Referring Physician: Primary Care Physician: SON CASTILLO [...] for at least 6 months Consent & [place] Protocol The risks, benefits, and alternatives of the procedure were discussed withthe patient and written informed consent was obtained. [place] protocol was followed. TIME OUT conducted just prior tostarting procedure confirmed patient identity, site/side, procedure,patient position, and availability of correct equipment and implants (ifapplicable). Staff Name Title MARILYN NATH Diagnostic Special Inspector Mary Grace Yao RN Nurse Asif Silveira CVT Scrub Judith Arreguin VETERINARY TECHNOLOGY INSTRUCTOR Scrub Ezra Ernandez CVT Monitor Toy Saunders CVT Monitor Lexi Frausto Fellow [place] [employer] Jewelry Facer Procedures ? Ultrasound Guided Vascular Access ? [...] 1st Diagonal Drug Eluting Stent AMILCAR BALB[place] RX [id number] 1 1st Diagonal Balloon BLLN [place] RX [id number] 1 1st Diagonal Balloon BLLN [place] RX 2.5MM X 12MM 1 1st Diagonal IVUS CATH IVUS [place] 1 1st Diagonal Balloon BLLN [place] [id number] 1 1st Diagonal Balloon BLLN [place] [...] 08:30 Nitroglycerin 300 mcg IA Marilyn Nath Gauravploly 08:38 Heparin 5000 units IV Marilyn Nath [...] healthcare professional providing the sedation ends personal [id number] time with the patient. The medications listed above were verbally ordered by me and read back tome as documented above. Refer to the procedure log report for additional case details. electronically signed on 06/14/2023 10:09:16 AM with status of Final Marilyn Nath MD [facility] [address] [facility] [address] [place], [place] [id number] (p) [phone](f) Provider Referring CV IMAGING * SCAN-CARDIAC STRIP (06/14/2023 7:38 AM UTILITY OPERATOR) Scanner OTHER * SCAN-CARDIAC STRIP (06/13/2023 10:27 PM UTILITY OPERATOR) Scanner OTHER * SCAN-CARDIAC STRIP (06/13/2023 6:37 PM UTILITY OPERATOR) Scanner OTHER * EXTRA TUBE LAVENDER (06/13/2023 10:12 AM UTILITY OPERATOR) Blood BLOOD SPECIMEN / Unknown Extra Tube / Unknown 06/13/2023 10:12 AM UTILITY OPERATOR 06/13/2023 10:23 AM UTILITY OPERATOR Doctor Unknown LABORATORY [facility] [address] [place] [address], * (ABNORMAL) LIPID PANEL (06/10/2023 2:38 PM UTILITY OPERATOR) CHOLESTEROL,TOTAL 172 100 - 199 mg/dL 06/10/2023 9:06 PM UTILITY OPERATOR [facility] Comment: Cholesterol, Total Reference Ranges Desirable <200 mg/dL Borderline 200-239 mg/dL High >=240 mg/dL TRIGLYCERIDES 311(H) <150 mg/dL 06/10/2023 9:06 PM UTILITY OPERATOR [facility] HDL CHOLESTEROL 30(L) >40 mg/dL 9:06 PM UTILITY OPERATOR [facility] NON-HDL CHOLESTEROL 142 <145 mg/dl 06/10/2023 9:06 PM UTILITY OPERATOR [facility] CHOL/HDL RATIO 5.73(H) <4.50 06/10/2023 9:06 PM UTILITY OPERATOR [facility] TRA [facility]ATORY LDL CHOLESTEROL 80 <=130 mg/dL 06/10/2023 9:06 PM UTILITY OPERATOR [facility] VLDL CHOLESTEROL 62(H) <=30 mg/dL 06/10/2023 9:06 PM UTILITY OPERATOR [facility] TRA LABORATORY PROVIDER ORDERED STATUS RANDOM 06/10/2023 9:06 PM UTILITY OPERATOR [facility] Blood BLOOD SPECIMEN / Unknown Venipuncture / Unknown 06/10/2023 2:38 PM UTILITY OPERATOR 06/10/2023 2:43 PM UTILITY OPERATOR Valorie Andrade MD [facility] [address] [place] [address], [place] * COLONOSCOPY (12/09/2020 1:42 PM CDT) 12/09/2020 1:42 PM CDT Narrative Transcriptions Edwina Godinez MD - 12/09/2020 2:33 PM CDT [facility] Patient Name: Windy Cooper Procedure Date: 12/09/2020 Gender: Male Date of : 1965 Admit Type: Inpatient Procedure: Colonoscopy Proceduralist[facility] Ed[facility] Referring MD: Son Castillo Indications/Pre-Op Diagnosis: Iron [...] ,IFOBT Negative Negative 12/13/2020 10:29 AM CDT [facility] Stool STOOL SPECIMEN / Unknown Non-Blood / Unknown 12/04/2020 1:52 PM CDT 12/12/2020 1:52 PM CDT Son Motat DO LABORATORY Performing Organization Address City/State/[facility] Co de Phone Number [facility] [address] [place] [address], from Last 3 Months or Most Recently [...] Status Discussion: Per Existing Order Care Teams Dog Catcher Relationship Specialty Start Date End Date Son Castillo DO [address] [place] [address] PCP - General Family Practice 03/13/12 Eddie Moulton MD Internal Medicine Sleep Medicine 02/29/12 Diego Walker MD [address] [place] [address] Sports Medicine 02/29/12
--- OUTSIDE RECORDS SUMMARY | 2023-09-12 10:12 | XMS_ITS | Data Portability ---
Author Organization [place] - [facility], [facility] - OP Address [address] [place] [address] Care Team Providers Care Indirect Sales Representative Name Role Phone SON CASTILLO Primary Care [...] By Organization Details Last Modified Time 06/12/2022 [id number] Conclusion: Dear colleagues, Thank you very much [...] placing orders, and documenting this visit in [place]. [email or web address] Not available 06/12/2022 15:50:41 Reason for Referral None Reported. Procedures Surgical History Date Name Laterality Status Provider Name and Address Organization Details Recorded Time 3 Joint Injection cancelled Ramona marin [facility] 06/28/2022 14:20:09 Imaging Results None recorded. Procedure [...] /min 95 % 95 % 38.7 kg/m2 397454. 17 g 191 mm[Hg] 100 mm[Hg] Adrian [...] Encounter Closed Date Diagnosis/Indication Diagnosis SNOMED-CT Code [id number] [facility] [address] [address] 06/12/2022 12:51:29 06/12/2022 17:18:53 Chronic low back pain [id number] Health Concerns Section Related Observation LastModified by Organization Detai ls LastModified Time None Recorded Concern Status LastModified by Organization Details LastModified Time None Recorded Advance Directives Directive None Recorded Payers Encounter Date Sequence Insurance Name Policy Number Policy Camacho Covered Member ID Camacho Member ID Guarantor Name 06/12/2022 1 [facility] (MEDICARE REPLACEMENT/A DVANTAGE - PPO) [id number] Windy Cooper [id number] Windy Cooper Notes Date Note Type Note Provider Name and Address Organization Details Recorded Time 06/12/2022 text/html HPI Notes: Windy COOPER 56yo M 1965 #[id number] Chief Complaint: Low back pain History of [...] his pain. The patient reports hearing about [employer], from a TV ad. The patient reports a previous heart attach (~3-4 years ago). The patient reports that his CPAP helps him sleep at night. Pain profile, reported by patient: Onset: chronic (~30 years) Location: LBP Duration: chronic Severity: LBP: 7-8/10 Social history, reported by patient: EtOH: no Drugs: no Smoking: former smoker ERIC Red - [employer] 06/12/2022 16:21:45
[2023-09-12 10:34] VITALS: BP 102/69; PULSE 63; RESP 20; O2SAT 95
[2023-09-12 10:42] LABS: Chloride* 104 mmol/L (96-114); Potassium* 4.3 mmol/L (3.6-5.1); Sodium* 140 mmol/L (135-149)
[2023-09-12 10:45] LABS: Anion Gap 9 mEq/L (7-15); Blood Urea Nitrogen* 18 mg/dL (7-30); Carbon Dioxide* 27 mmol/L (20-32); Creatinine* 1.2 mg/dL (0.5-1.5); Estimated Glomerular Filt Rate 70 ml/min
[2023-09-12 10:46] LABS: Calcium* 8.7 mg/dL (8.4-10.6); Glucose* 152 mg/dL (60-115)
--- NOTE | 2023-09-12 11:31 | PM.EN ---
Chart Event Note Time Seen by Provider: 11:31 Date Seen: 09/12/23 Chart Event Note: Patient seen in followup of hospitalization with hypotension and hyperkalemia. I reviewed his home blood pressures which have been consistently between 100-120 over 60-75. Blood pressure here is 102/69. Sodium is 140, potassium 4.3, CO2 is 27, BUN is 18, creatinine 1.2. I will make no changes in his medicine at this time. Follow up in clinic next week, 5 days for recheck of basic metabolic panel, blood pressure and INR.
== END 2023-09-12 11:43 | disposition home or self-care (01) ==
LOC: MS OUT 10:09 → MEDSURG 10:13
PROVIDERS: PCP Family Medicine; Visit Provider Family Medicine
DX: I95.9 Hypotension, unspecified (principal); E87.5 Hyperkalemia
CPT/HCPCS: 36415; 80048; G0463

== ENCOUNTER 2024-05-07 10:30 | Observation (INO) | payer MEDICARE, SELFPAY ==
[2024-05-07] VITALS (20 sets, daily range): BP systolic 102–172; BP diastolic 49–157; PULSE 55–72; RESP 18–20; TEMP 36.6–37; O2SAT 90–98; BMI 42.0; BMI 43.0
--- NOTE | 2024-05-07 11:08 | ED_ITS ---
HPI - General Adult General Time Seen by Provider: 11:08 Date Seen: 05/07/24 Chief complaint: Diabetic Related Problem Stated complaint: High glucose Time Seen by Provider: 05/07/24 11:06 Source: patient and RN notes reviewed Mode of arrival: ambulatory Limitations: no limitations History of Present Illness HPI narrative: If this 58-year-old male is sent from follow-up of a clinic visit yesterday with an elevated blood sugar. Windy had a visit with his inspector poising yesterday. Labs were done, he was called with an elevated sugar today. Did go into the epic chart, blood sugar was 901. His sodium was 125, potassium 4.9, chloride 87, bicarb 25. His creatinine was 1.32 with an estimated GFR of 63. White blood count yesterday was 10.3, hemoglobin 12, platelet count [id number]. He did have a hemoglobin A1c last in September of 2023 that was 6.1%. He has not been diagnosed with diabetes to date. Windy has had stents placed in his heart, history of ischemic heart disease but they are not aware of any congestive heart failure. In his records, he did have a nuclear medicine stress test on 05/29/2023. The findings were abnormal myocardial perfusion study. Small to medium sized area of mild ischemia in the basal and mid anterolateral and inferolateral alexandre. Additionally, there was a mild areas severe transmural infarction in the basal and mid inferior wall. Left ventricular cavity size was mildly enlarged. Overall left ventricular systolic function was normal without wall motion abnormalities. The post stress LVEF was calculated to be 54%. Compared to prior study of 02/16/2015, findings of ischemia and infarction are new. He is noting no chest pain, no new respiratory symptoms. 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 He notes he is had increasing thirst as of late, polyuria without any dysuria. He has had no fevers or chills. No abdominal pain, no nausea or vomiting. He has not historically like to drink water and his inspector poising had wanted him to have increased fluids. He was drinking Pepsi with ice, went from 1 L a day to 2 L a day. He has also been drinking some water as well recently. He did note some recent audio and visual hallucinations. He attributed this to maybe an increase of his Lexapro from his psychiatrist. He has had hallucinations after being hospitalize post ICU for his COVID. Related Data Home Medications ?Medication ?Instructions ?Recorded ?Confirmed atorvastatin 40 mg tablet 40 mg PO HS 05/22/22 05/07/24 carvedilol 25 mg tablet 25 mg PO BIDWM 05/22/22 05/07/24 cholecalciferol (vitamin D3) 25 1,000 unit PO DAILY 05/22/22 05/07/24 mcg (1,000 unit) tablet clonidine HCl 0.1 mg tablet 0.1 mg PO BID 05/22/22 05/07/24 clopidogrel 75 mg tablet 75 mg PO DAILY 05/22/22 05/07/24 cyanocobalamin (vitamin B-12) 1,000 mcg PO DAILY 05/22/22 05/07/24 1,000 mcg tablet (Vitamin B-12) famotidine 20 mg tablet 20 mg PO BID 05/22/22 05/07/24 isosorbide mononitrate 60 mg 120 mg PO DAILY 05/22/22 05/07/24 tablet,extended release 24 hr nitroglycerin 0.4 mg sublingual 0.4 mg sublingual Q5-15M PRN 05/22/22 05/07/24 tablet (Nitrostat) omeprazole 40 mg capsule,delayed 40 mg PO DAILY 05/22/22 05/07/24 release oxybutynin chloride 5 mg 5 mg PO DAILY 05/22/22 05/07/24 tablet,extended release 24 hr tizanidine 4 mg tablet 4 mg PO HS 05/22/22 05/07/24 escitalopram oxalate 10 mg tablet 40 mg PO DAILY 09/22/22 05/07/24 amlodipine 5 mg tablet 5 mg PO BID 09/09/23 05/07/24 clonazepam 1 mg tablet 1 mg PO HS PRN 09/09/23 05/07/24 ergocalciferol (vitamin D2) 1,250 1,250 mcg PO .MO,TH; 09/09/23 05/07/24 mcg (50,000 unit) capsule (Vitamin D2) ezetimibe 10 mg tablet 10 mg PO DAILY 09/09/23 05/07/24 mirtazapine 15 mg tablet 15 mg PO HS 09/09/23 05/07/24 spironolactone 25 mg tablet 25 mg PO DAILY 09/09/23 05/07/24 aspirin 81 mg chewable tablet 81 mg PO DAILY 05/07/24 05/07/24 (Aspirin Childrens) Allergies Allergy/AdvReac Type Severity Reaction Status Date / Time methylprednisolone (From Allergy Intermediate Insomnia Verified 05/07/24 10:42 Medrol) acetaminophen (From Percocet) Allergy Verified 05/07/24 10:42 citalopram (From Celexa) Allergy Verified 05/07/24 10:42 diphenhydramine (From Allergy Verified 05/07/24 10:42 Benadryl) morphine Allergy Verified 05/07/24 10:42 oxycodone (From Percocet) Allergy Verified 05/07/24 10:42 Review of Systems Status of ROS: Reports: 6 or more systems reviewed and unremarkable except as noted in History and below [facility] Medical History Morbid obesity with BMI of 45.0-49.9, adult ?E66.01 - Morbid (severe) obesity due to excess calories (ICD-10) ?Z68.42 - Body mass index [BMI] 45.0-49.9, adult (ICD-10) Obstructive sleep apnea ?G47.33 - Obstructive sleep apnea (adult) (pediatric) (ICD-10) On home oxygen therapy ?Z99.81 - Dependence on supplemental oxygen (ICD-10) Post-viral cough syndrome ?R05.8 - Other specified cough (ICD-10) Acute respiratory failure with hypoxia ?J96.01 - Acute respiratory failure with hypoxia (ICD-10) 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 - Dependent personality disorder (ICD-10) Borderline personality disorder ?F60.3 - Borderline personality disorder (ICD-10) Major depressive disorder, recurrent episode, moderate ?F33.1 - Major depressive disorder, recurrent, moderate (ICD-10) Panic disorder without agoraphobia ?F41.0 - Panic disorder [episodic paroxysmal anxiety] (ICD-10) Bone island ?M89.8X9 - Other specified disorders of bone, unspecified site (ICD-10) DDD (degenerative disc disease) Pneumonia due to severe acute respiratory syndrome coronavirus 2 (SARS-CoV-2) ?U07.1 - COVID-19 (ICD-10) ?J12.82 - Pneumonia due to coronavirus disease 2019 (ICD-10) Microcytic anemia ?D50.9 - Iron deficiency anemia, unspecified (ICD-10) Adenomatous colon polyp ?D12.6 - Benign neoplasm of colon, unspecified (ICD-10) Dental infection ?K04.7 - Periapical abscess without sinus (ICD-10) GERD (gastroesophageal reflux disease) ?K21.9 - Gastro-esophageal reflux disease without esophagitis (ICD-10) Adrenal adenoma ?D35.00 - Benign neoplasm of unspecified adrenal gland (ICD-10) Acute hypoxemic respiratory failure ?J96.01 - Acute respiratory failure with hypoxia (ICD-10) Acute idiopathic gout ?M10.00 - Idiopathic gout, unspecified site (ICD-10) Vitamin D deficiency ?E55.9 - Vitamin D deficiency, unspecified (ICD-10) Arteriosclerotic cardiovascular disease ?I25.10 - Atherosclerotic heart disease of [place] coronary artery without angina pectoris (ICD-10) ACS (acute coronary syndrome) ?I24.9 - Acute ischemic heart disease, unspecified (ICD-10) Hypertension ?I10 - Essential (primary) hypertension (ICD-10) Social History What is your current living situation?: I presently have a place to live Problems where you live: no known problems Problems where you live details: na In the past 12 months, utilities in danger of being shut off: no In past 12 months, lack of transportation kept you from medical appts, meetings, work, or getting things needed for daily living: no In the past 12 mos, have been you worried that your food would run out before you had money to buy more?: never true In the past 12 mos, the food you bought just didn't last and you didn't have money to buy more?: never true Highest level of school completed/degree received: 12th grade, no diploma Smoking Status: Never smoker How often do you have a drink containing alcohol: monthly or less How many standard drinks containing alcohol do you have on a typical day: 1 or 2 How often do you have six or more drinks on one occasion: Never AUDIT-C Alcohol total score: 1 Non-prescribed substance use: denies use Caffeine: Yes (pepsi) How often does anyone, including family, friends and others, physically hurt you : never How often does anyone, including family, friends and others, insult or talk down to you: never How often does anyone, including family, friends and others, threaten you with harm: never How often does anyone, including family, friends and others, scream or curse at you: never service: No Exam Const: Vital Signs, click to edit/add: Vital Signs - 24 hr 05/07/24 10:36 05/07/24 12:00 Temperature 97.9 F Pulse Rate [Right Pulse Oximeter] 64 Respiratory Rate 18 Blood Pressure [Ri ght Upper Arm] 103/69 Pulse Oximetry 97 Oxygen Delivery Me thod Room Air Nasal Cannula Oxygen Flow Rate 3 Phalen timing his wearing oxygen, is alert, interactive, no apparent distress. Lying on his side. He is not tachypneic, speech is normal. Pupils equal round reactive, sclera clear, symmetrical facial function. Oropharynx with normal mucosa outside of looking a little dry. Lips do not seem dry are cracked. Neck is thick, no masses. Lungs are clear, good air entry, no wheezing or crackles. CV regular rate and rhythm, no murmur heard, normal S1, do not hear any S3 or S4. Abdomen is obese but soft, no rebound or guarding, no organomegaly. Moving arms and legs, no focal deficit noted. Denies hallucinations at this time. No significant lower extremity edema. Documenting provider has reviewed patient's vital signs: yes Course Course ED Course: Patient obviously has diagnosis of diabetes now. Will initiate a L of IV fluids. Do not see any recent echo in his records but the EF on the nuclear medicine scan was mildly reduced at 54% last year. Will need to watch for fluid overload but fluids really is the mainstay of treatment for him initially. Will get full complement of labs, obtain urinalysis. We will see where his electrolytes are, will probably need to initiate insulin. He is currently hemodynamically stable. This is very definitely hyperglycemia in a type 2 diabetic. Will see if he has labs suggestive of hyperosmolar nonketotic syndrome. He is likely going to need hospitalization as there will potentially be electrolyte and fluid shifts with insulin treatment that is going to need to be initiated. Otherwise, do think we need a head CT. With the hallucinations, certainly can be medication related but need to consider ischemic disease. If head CT comes back normal, will attempt to have a conversation with Neurology regarding further workup. Do wonder if we should just proceed with MR imaging. Reevaluation(s) Time of Reevaluation #1: 13:38 Reevaluation #1: 1 L of fluids is done, recheck glucose is 464. Will give him a 2 L of fluids, recheck chemistries after that. Consultations Consultation #1: Have reviewed with hospitalist Dr. Bethea. He is aware of the fluids that have been given, where he is at fluid management status. No insulin has been given at this time, was going to recheck a glucose with electrolytes after his 2 L of fluids. Patient is accepted by a Dr. Bethea. We did review the urinalysis is nitrite positive, he would like to evaluate patient and will take care of antibiotics if he feels they are indicated. Did review with Dr. Bethea that head CT imaging was done for the hallucinations. He will decide if he wants any further neuro imaging, talk to Neurology or not. He will assess further with the patient. Time: 14:47 Vital Signs Vital signs: Initial Vital Signs Temperature 97.9 F 05/07/24 10:36 Temperature Source Temporal Artery Scan 05/07/24 10:36 Pulse Rate 64 05/07/24 10:36 Pulse Rhythm Regular 05/07/24 10:36 Pulse Strength 3+ Normal 05/07/24 10:36 Respiratory Rate 18 05/07/24 10:36 Blood Pressure 103/69 05/07/24 10:36 Blood Pressure Mean 80 05/07/24 10:36 Blood Pressure Position Sitting 05/07/24 10:36 Pulse Oximetry 97 05/07/24 10:36 Oxygen Delivery Method Room Air 05/07/24 10:36 Vital Signs Temperature 97.9 F 05/07/24 10:36 Pulse Rate 64 05/07/24 10:36 Respiratory Rate 18 05/07/24 10:36 Blood Pressure 103/69 05/07/24 10:36 Pulse Oximetry 97 05/07/24 10:36 Oxygen Delivery Method Room Air 05/07/24 10:36 Temperature 97.9 F 05/07/24 10:36 Pulse Rate 64 05/07/24 10:36 Respiratory Rate 18 05/07/24 10:36 Blood Pressure 103/69 05/07/24 10:36 Pulse Oximetry 97 05/07/24 10:36 Oxygen Delivery Method Nasal Cannula 05/07/24 12:00 Oxygen Flow Rate 3 05/07/24 12:00 Medications Administered Medications: Generic Name Dose Route Start Last Admin Trade Name Osman PRN Reason Stop Dose Admin Sodium Chloride 1,000 mls @ 500 mls/hr 05/07/24 13:40 05/07/24 14:06 0.9 % Sodium Chloride 1000 Ml IV 05/07/24 15:39 500 mls/hr .Q2H NATHANAEL Administration Discontinued Medications Generic Name Dose Route Start Last Admin Trade Name Osman PRN Reason Stop Dose Admin Sodium Chloride 1,000 mls @ 1,000 mls/hr 05/07/24 11:25 05/07/24 14:06 0.9 % Sodium Chloride 1000 Ml IV 05/07/24 12:24 Infused .Q1H NATHANAEL Infusion Medical Decision Making Lab Data Lab results reviewed: Yes I reviewed the patient's lab results Labs: Lab Results 05/07/24 05/07/24 05/07/24 Range/Units 11:22 11:50 13:18 WBC 8.72 (4.50-11.00) K/uL RBC 4.47 (4.30-5.90) m/uL Hgb 11.9 L (13.5-17.5) gm/dL Hct 36.3 L (37.0-53.0) % MCV 81 (80-100) fL MCH 27 (26-34) pg MCHC 33 (32-36) gm/dL RDW Coeff of Maria Luisa 14.3 (11.5-15.5) % Plt Count 175 (140-440) K/uL Neut % (Auto) 71.9 (42.0-72.0) % Lymph % (Auto) 17.1 L (20-44) % Bowman % (Auto) 8.0 (0.0-11.0) % Eos % (Auto) 2.6 (0.0-7.0) % Baso % (Auto) 0.1 (0.0-3.0) % Neut # (Auto) 6.26 (1.7-7.0) K/uL Lymph # (Auto) 1.50 (0.90-2.90) K/uL Bowman # (Auto) 0.70 (0.00-0.90) K/UL Eos # (Auto) 0.23 (0.00-0.50) K/uL Baso # (Auto) 0.01 (0.00-0.30) K/uL Abs Immat Gran (auto) 0.03 (0.00-0.30) K/uL Imm/Tot Granulo (auto) 0.3 % VBG pH 7.324 (7.32-7.43) VBG pCO2 59 H (40-50) mmHG VBG pO2 43.1 (25-47) mmHG VBG HCO3 31 H (21-28) mmol/L Sodium 129 L (135-149) mmol/L Potassium 3.8 (3.6-5.1) mmol/L Chloride 92 L (96-114) mmol/L Carbon Dioxide 28 (20-32) mmol/L Anion Gap 9 (7-15) mEq/L BUN 14 (7-30) mg/dL Creatinine 0.9 (0.5-1.5) mg/dL Estimated Creat Clear 80.73 Estimated GFR 99 ml/min Glucose 609 H* (60-115) mg/dL Hemoglobin A1c 12.7 H (0-5.6) % Lactate 2.5 H (0.5-1.9) mmol/L Calcium 8.8 (8.4-10.6) mg/dL Magnesium 1.9 (1.5-2.6) mg/dL Total Bilirubin 0.9 (0.1-1.5) mg/dL AST 22 (12-35) U/L ALT 30 (4-50) U/L Alkaline Phosphatase 148 (40-150) U/L Troponin I < 0.01 L (0.01-0.04) ng/mL NT-Pro-B Natriuret Pep 50 pg/mL Total Protein 6.4 (6.0-8.3) g/dL Albumin 3.9 (3.3-5.0) g/dL Urine Color Yellow (Yellow) Urine Appearance Slightly Cloudy A (Clear) Urine pH 6.0 (5.0-8.5) Ur Specific [place] >= 1.030 (1.000-1.030) Urine Protein Negative (Negative) Urine Glucose (UA) 2+ A (Negative) Urine Ketones Negative (Negative) Urine Blood Trace-lysed A (Negative) Urine Nitrite Positive A (Negative) Urine Bilirubin Negative (Negative) Urine Urobilinogen 0.2 (0.2-1.0) Ur Leukocyte Esterase Negative (Negative) Urine RBC 0-2 (0-2) Urine WBC 5-10 A (0-5) Ur Squamous Epith Cells None (None-Few) Amorphous Sediment Moderate A (None) Urine Bacteria Few A (None) POC Glucose 464 H* (60-115) mg/dl Imaging Data CT scan - head: Attestation: I have reviewed the pertinent imaging results. Radiologist's impression: Patient: WINDY COOPER Facility:?[facility] Patient ID:?[id number] Site Patient ID:?[id number]. Site :?[id number] Study:?CT-Head WITHOUT-05/07/2024 12:17:13 PM Ordering Physician:Antony Combs Final Report: INDICATION: Hallucinations. Hyperglycemia. COMPARISON: None available. TECHNIQUE: CT of the head without intravenous contrast. Please note that all CT scans at this facility use dose modulation, iterative reconstruction, and/or weight-based dosing when appropriate to reduce radiation dose to as low as reasonably achievable. FINDINGS: No acute infarct. No intracranial mass or mass effect. No intracranial hemorrhage. No hydrocephalus. Asymmetric widening of the right parietal postcentral sulcus with asymmetrical prominence of the body of the right lateral ventricle consistent with parenchymal volume loss. Intact corticomedullary junction. These findings are considered incidental to the clinical history, likely congenital/developmental and otherwise of doubtful clinical significance. Intact skull base and cranial vault. Visualized orbits are without significant incidental findings. Right middle ear and mastoid effusions. The ossicles of the right middle ear and right mastoid air cells are intact. Recommend clinical correlation as to possible right otomastoiditis. Trace left mastoid effusion. Opacification of the left frontal recess and mild sphenoid sinus mucosal thickening. Unremarkable soft tissues. IMPRESSION: No imaging findings to explain hallucinations. No acute infarct, intracranial mass, mass effect, hemorrhage or hydrocephalus.. Incidental findings described in the body of the report. Please note that all CT scans at this facility use dose modulation, iterative reconstruction, and/or weight-based dosing when appropriate to reduce radiation dose to as low as reasonably achievable. Dictated by Lalo Guaman MD @ 05/07/2024 12:35:40 PM ----- ADDENDUM ----- ADDENDUM: Incidental note is also made of bilateral maxillary sinus floor opacities with convex rounded edges consistent with retention cysts associated with mild mucosal thickening. Dictated by Lalo Guaman MD @ May 07 2024 12:36PM (Electronic Signature) Discharge Plan Discharge Clinical Impression: Acute hyperglycemia, Diabetes mellitus, new onset Patient Disposition: Admitted As Observation
--- NOTE | 2024-05-07 11:19 | CRLHL7_ITS ---
For Patients: As a result of the Century Cures Act, medical imaging exams and procedure reports are released immediately into your electronic medical record. You may view this report before your referring provider. If you have questions, please contact your health care provider. INDICATION: Hallucinations. Hyperglycemia. COMPARISON: None available. TECHNIQUE: CT of the head without intravenous contrast. Please note that all CT scans at this facility use dose modulation, iterative reconstruction, and/or weight-based dosing when appropriate to reduce radiation dose to as low as reasonably achievable. FINDINGS: No acute infarct. No intracranial mass or mass effect. No intracranial hemorrhage. No hydrocephalus. Asymmetric widening of the right parietal postcentral sulcus with asymmetrical prominence of the body of the right lateral ventricle consistent with parenchymal volume loss. Intact corticomedullary junction. These findings are considered incidental to the clinical history, likely congenital/developmental and otherwise of doubtful clinical significance. Intact skull base and cranial vault. Visualized orbits are without significant incidental findings. Right middle ear and mastoid effusions. The ossicles of the right middle ear and right mastoid air cells are intact. Recommend clinical correlation as to possible right otomastoiditis. Trace left mastoid effusion. Opacification of the left frontal recess and mild sphenoid sinus mucosal thickening. Unremarkable soft tissues. IMPRESSION: No imaging findings to explain hallucinations. No acute infarct, intracranial mass, mass effect, hemorrhage or hydrocephalus.. Incidental findings described in the body of the report. Please note that all CT scans at this facility use dose modulation, iterative reconstruction, and/or weight-based dosing when appropriate to reduce radiation dose to as low as reasonably achievable. Dictated by Lalo Guaman MD @ 05/07/2024 12:35:40 PM (Electronically Signed)
[2024-05-07 12:00] LABS: HCO3 VBG 31 mmol/L (21-28); Lactate* 2.5 mmol/L (0.5-1.9); PCO2 VBG 59 mmHG (40-50); PO2 VBG 43.1 mmHG (25-47); pH VBG 7.324 (7.32-7.43)
[2024-05-07 12:01] LABS: Basophils Absolute Auto 0.01 K/uL (0.00-0.30); Basophils Percent Auto 0.1 % (0.0-3.0); Eosinophils Absolute Auto 0.23 K/uL (0.00-0.50); Eosinophils Percent Auto 2.6 % (0.0-7.0); Hematocrit 36.3 % (37.0-53.0); Hemoglobin* 11.9 gm/dL (13.5-17.5); Immature Granulocytes Abs Auto 0.03 K/uL (0.00-0.30); Immature Granulocytes Pct Auto 0.3 %; Lymphocytes Percent Auto 17.1 % (20-44); Mean Corpuscular HGB Conc 33 gm/dL (32-36); Mean Corpuscular Hemoglobin 27 pg (26-34); Mean Corpuscular Volume 81 fL (80-100); Neutrophils Absolute Auto 6.26 K/uL (1.7-7.0); Neutrophils Percent Auto 71.9 % (42.0-72.0); Platelet Count* 175 K/uL (140-440); RDW Coefficient of Variation % 14.3 % (11.5-15.5); Red Blood Count 4.47 m/uL (4.30-5.90); White Blood Count* 8.72 K/uL (4.50-11.00)
[2024-05-07 12:14] LABS: Slide Review Reflex No
[2024-05-07 12:17] LABS: Magnesium* 1.9 mg/dL (1.5-2.6)
[2024-05-07 12:18] LABS: Albumin* 3.9 g/dL (3.3-5.0); Chloride* 92 mmol/L (96-114); Potassium* 3.8 mmol/L (3.6-5.1); Sodium* 129 mmol/L (135-149)
[2024-05-07 12:20] LABS: Creatinine* 0.9 mg/dL (0.5-1.5); Est. Creatinine Clearance* 80.73; Estimated Glomerular Filt Rate 99 ml/min
[2024-05-07 12:21] LABS: Alanine Aminotransferase* 30 U/L (4-50); Alkaline Phosphatase* 148 U/L (40-150); Anion Gap 9 mEq/L (7-15); Aspartate Amino Transferase* 22 U/L (12-35); Bilirubin Total* 0.9 mg/dL (0.1-1.5); Blood Urea Nitrogen* 14 mg/dL (7-30); Calcium* 8.8 mg/dL (8.4-10.6); Carbon Dioxide* 28 mmol/L (20-32); Total Protein* 6.4 g/dL (6.0-8.3)
[2024-05-07 12:22] LABS: Hemoglobin A1C* 12.7 % (0-5.6)
[2024-05-07 12:24] LABS: Glucose* 609 mg/dL (60-115)
[2024-05-07] MEDS: 0.9 % SODIUM CHLORIDE 1000 ml 1,000 ML IV (12:25)
[2024-05-07 12:30] LABS: NT Pro B Type NatriureticPept* 50 pg/mL; Troponin I* < 0.01 ng/mL (0.01-0.04)
[2024-05-07 13:40] LABS: Glucose, Point-of-Care* 464 mg/dl (60-115)
[2024-05-07 13:50] LABS: Appearance Urine Slightly Cloudy (Clear); Bilirubin Urine Negative (Negative); Blood Urine Trace-lysed (Negative); Color Urine Yellow (Yellow); Glucose Urine 2+ (Negative); Ketones Urine Negative (Negative); Leukocyte Esterase Urine Negative (Negative); Nitrite Urine Positive (Negative); Protein Urine Negative (Negative); Specific Gravity Urine >= 1.030 (1.000-1.030); Urobilinogen Urine 0.2 (0.2-1.0)
[2024-05-07 13:59] LABS: Amorphous Sediment Urine Moderate; Bacteria Urine Few; RBC Urine 0-2 (0-2)
[2024-05-07] MEDS: 0.9 % SODIUM CHLORIDE 1000 ml 1,000 ML 500 ML IV (14:06)
[2024-05-07] MEDS: INSULIN REGULAR, HUMAN 100 UNIT/ML VIAL 10 UNIT IVP (16:22)
[2024-05-07] MEDS: carvediloL 25 MG TABLET PO (18:21)
[2024-05-07] MEDS: METFORMIN ER 500 MG 1000 MG PO (18:21)
[2024-05-07] MEDS: INSULIN ASPART 100 UNIT/ML SUBCUT ×2 (18:22→20:54)
[2024-05-07] MEDS: INSULIN ASPART 100 UNIT/ML 10 UNIT SUBCUT (18:23)
--- NOTE | 2024-05-07 19:28 | P.IMHP_ITS ---
Hospitalist- H&P: HPI History of Present Illness Date Seen: 05/07/24 Chief complaint: High glucose Narrative: Windy Harrison is a 58 year old male with morbid obesity, chronic hypoxia following COVID illness on home oxygen, coronary artery disease status post stenting most recently June 2023 admitted to the hospital with new onset diabetes mellitus. He reports that he has been having polydipsia and polyuria for some time now. He had a hemoglobin A1c in September 2023 of 6.1. Currently hemoglobin A1c is 12.7. Outpatient Clinic Visit showed hyperglycemia. He presents here with a blood sugar of 609. He has not had any other symptoms of illness, cold, cough, fever, abdominal pain, nausea, vomiting, diarrhea. Reports recently he has had visual hallucinations that occur when his eyes are open. When he closes his eyes they go away. Primarily he is seeing groups of people walking by him in his home. He attributes this to a recent increase in his Lexapro. These visions do not cause any anxiety or fear or other emotional upset. He recognizes that they are not real. Review of Systems Narrative: Review of systems unremarkable except for polyuria and polydipsia [facility] Medical History (Updated 05/07/24 @ 20:00 by Man Bethea MD) Visual hallucinations ?R44.1 - Visual hallucinations (ICD-10) Chronic hypoxic respiratory failure ?J96.11 - Chronic respiratory failure with hypoxia (ICD-10) Morbid obesity with BMI of 45.0-49.9, adult ?E66.01 - Morbid (severe) obesity due to excess calories (ICD-10) ?Z68.42 - Body mass index [BMI] 45.0-49.9, adult (ICD-10) Obstructive sleep apnea ?G47.33 - Obstructive sleep apnea (adult) (pediatric) (ICD-10) On home oxygen therapy ?Z99.81 - Dependence on supplemental oxygen (ICD-10) Post-viral cough syndrome ?R05.8 - Other specified cough (ICD-10) Acute respiratory failure with hypoxia ?J96.01 - Acute respiratory failure with hypoxia (ICD-10) 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 - Dependent personality disorder (ICD-10) Borderline personality disorder ?F60.3 - Borderline personality disorder (ICD-10) Major depressive disorder, recurrent episode, moderate ?F33.1 - Major depressive disorder, recurrent, moderate (ICD-10) Panic disorder without agoraphobia ?F41.0 - Panic disorder [episodic paroxysmal anxiety] (ICD-10) [place] ?M89.8X9 - Other specified disorders of bone, unspecified site (ICD-10) DDD (degenerative disc disease) Pneumonia due to severe acute respiratory syndrome coronavirus 2 (SARS-CoV-2) ?U07.1 - COVID-19 (ICD-10) ?J12.82 - Pneumonia due to coronavirus disease 2019 (ICD-10) Microcytic anemia ?D50.9 - Iron deficiency anemia, unspecified (ICD-10) Adenomatous colon polyp ?D12.6 - Benign neoplasm of colon, unspecified (ICD-10) Dental infection ?K04.7 - Periapical abscess without sinus (ICD-10) GERD (gastroesophageal reflux disease) ?K21.9 - Gastro-esophageal reflux disease without esophagitis (ICD-10) Adrenal adenoma ?D35.00 - Benign neoplasm of unspecified adrenal gland (ICD-10) Acute hypoxemic respiratory failure ?J96.01 - Acute respiratory failure with hypoxia (ICD-10) Acute idiopathic gout ?M10.00 - Idiopathic gout, unspecified site (ICD-10) Vitamin D deficiency ?E55.9 - Vitamin D deficiency, unspecified (ICD-10) Arteriosclerotic cardiovascular disease ?I25.10 - Atherosclerotic heart disease of [place] coronary artery without angina pectoris (ICD-10) ACS (acute coronary syndrome) ?I24.9 - Acute ischemic heart disease, unspecified (ICD-10) Hypertension ?I10 - Essential (primary) hypertension (ICD-10) Surgical History (Updated 05/07/24 @ 19:40 by Man Bethea MD) History of coronary artery stent placement ?Z95.5 - Presence of coronary angioplasty implant and graft (ICD-10) History of cholecystectomy ?Z90.49 - Acquired absence of other specified parts of digestive tract (ICD-10) Family History (Updated 05/07/24 @ 19:41 by Man Bethea MD) Sister Breast cancer Father Coronary artery disease Social History (Updated 05/07/24 @ 19:42 by Man Bethea MD) Narrative: He lives independently with his . He does not smoke. Occasionally drinks alcohol. What is your current living situation?: I presently have a place to live Problems where you live: no known problems Problems where you live details: NONE In the past 12 months, utilities in danger of being shut off: no In past 12 months, lack of transportation kept you from medical appts, meetings, work, or getting things needed for daily living: no In the past 12 mos, have been you worried that your food would run out before you had money to buy more?: never true In the past 12 mos, the food you bought just didn't last and you didn't have money to buy more?: never true Highest level of school completed/degree received: 12th grade, no diploma Smoking Status: Never smoker Do you use any of these nicotine containing products: None How often do you have a drink containing alcohol: never How many standard drinks containing alcohol do you have on a typical day: 1 or 2 How often do you have six or more drinks on one occasion: Never AUDIT-C Alcohol total score: 0 Non-prescribed substance use: denies use Caffeine: Yes (Daily Soda) How often does anyone, including family, friends and others, physically hurt you : never How often does anyone, including family, friends and others, insult or talk down to you: never How often does anyone, including family, friends and others, threaten you with harm: never How often does anyone, including family, friends and others, scream or curse at you: never service: No Meds Home Medications and Allergies Home Medications ?Medication ?Instructions ?Recorded ?Confirmed ?Type atorvastatin 40 mg tablet 40 mg PO HS 05/22/22 05/07/24 History carvedilol 25 mg tablet 25 mg PO BIDWM 05/22/22 05/07/24 History cholecalciferol (vitamin D3) 25 1,000 unit PO DAILY 05/22/22 05/07/24 History mcg (1,000 unit) tablet clonidine HCl 0.1 mg tablet 0.1 mg PO BID 05/22/22 05/07/24 History clopidogrel 75 mg tablet 75 mg PO DAILY 05/22/22 05/07/24 History cyanocobalamin (vitamin B-12) 1,000 mcg PO DAILY 05/22/22 05/07/24 History 1,000 mcg tablet (Vitamin B-12) famotidine 20 mg tablet 20 mg PO BID 05/22/22 05/07/24 History isosorbide mononitrate 60 mg 120 mg PO DAILY 05/22/22 05/07/24 History tablet,extended release 24 hr nitroglycerin 0.4 mg sublingual 0.4 mg sublingual Q5-15M PRN 05/22/22 05/07/24 History tablet (Nitrostat) omeprazole 40 mg capsule,delayed 40 mg PO DAILY 05/22/22 05/07/24 History release oxybutynin chloride 5 mg 5 mg PO DAILY 05/22/22 05/07/24 History tablet,extended release 24 hr tizanidine 4 mg tablet 4 mg PO HS 05/22/22 05/07/24 History escitalopram oxalate 10 mg tablet 40 mg PO DAILY 09/22/22 05/07/24 History amlodipine 5 mg tablet 5 mg PO BID 09/09/23 05/07/24 History clonazepam 1 mg tablet 1 mg PO HS PRN 09/09/23 05/07/24 History ergocalciferol (vitamin D2) 1,250 1,250 mcg PO .MO,TH; 09/09/23 05/07/24 History mcg (50,000 unit) capsule (Vitamin D2) ezetimibe 10 mg tablet 10 mg PO DAILY 09/09/23 05/07/24 History mirtazapine 15 mg tablet 15 mg PO HS 09/09/23 05/07/24 History spironolactone 25 mg tablet 25 mg PO DAILY 09/09/23 05/07/24 History aspirin 81 mg chewable tablet 81 mg PO DAILY 05/07/24 05/07/24 History (Aspirin Childrens) Allergies Allergy/AdvReac Type Severity Reaction Status Date / Time methylprednisolone (From Allergy Intermediate Insomnia Verified 05/07/24 10:42 Medrol) acetaminophen (From Percocet) Allergy Verified 05/07/24 10:42 citalopram (From Celexa) Allergy Verified 05/07/24 10:42 diphenhydramine (From Allergy Verified 05/07/24 10:42 Benadryl) morphine Allergy Verified 05/07/24 10:42 oxycodone (From Percocet) Allergy Verified 05/07/24 10:42 Exam Narrative: Exam Narrative: He is alert and appears in no distress. Speech is normal. He is oriented to his circumstances. Speech is normal. No evidence of hallucinations, abnormal thought process, flight of ideas or mood disturbance. Oropharynx with small airway. Neck is supple without mass or adenopathy. Respirations are clear to auscultation. Cardiovascular: S1, S2, regular rate and rhythm. No murmur gallop or rub. Abdomen: Bowel sounds active. Abdomen is soft without tenderness or mass. Moves all 4 extremities well. Intact pulses and intact sensation in all 4 extremities. No edema. Const: Vital Signs, click to edit/add: Vital Signs - 24 hr 05/07/24 10:36 05/07/24 12:00 05/07/24 12:54 Temperature 97.9 F Pulse Rate 59 L Pulse Rate [Pulse Oximeter] Pulse Rate [Right Pulse Oximeter] 64 Respiratory Rate 18 Blood Pressure Blood Pressure [Ri ght Arm] Blood Pressure [Ri ght Upper Arm] 103/69 Pulse Oximetry 97 96 Oxygen Delivery Me thod Room Air Nasal Cannula OxyMask Oxygen Flow Rate 3 3 05/07/24 13:00 05/07/24 13:02 05/07/24 13:15 Temperature Pulse Rate 57 L 59 L 58 L Pulse Rate [Pulse Oximeter] Pulse Rate [Right Pulse Oximeter] Respiratory Rate Blood Pressure 129/71 Blood Pressure [Ri ght Arm] Blood Pressure [Ri ght Upper Arm] Pulse Oximetry 96 96 95 Oxygen Delivery Me thod OxyMask OxyMask OxyMask Oxygen Flow Rate 3 3 3 05/07/24 13:30 05/07/24 13:33 05/07/24 13:45 Temperature Pulse Rate 64 72 64 Pulse Rate [Pulse Oximeter] Pulse Rate [Right Pulse Oximeter] Respiratory Rate Blood Pressure 172/157 H Blood Pressure [Ri ght Arm] Blood Pressure [Ri ght Upper Arm] Pulse Oximetry 97 90 97 Oxygen Delivery Me thod OxyMask OxyMask OxyMask Oxygen Flow Rate 3 3 3 05/07/24 14:00 05/07/24 14:03 05/07/24 14:15 Temperature Pulse Rate 59 L 60 60 Pulse Rate [Pulse Oximeter] Pulse Rate [Right Pulse Oximeter] Respiratory Rate Blood Pressure 118/58 L Blood Pressure [Ri ght Arm] Blood Pressure [Ri ght Upper Arm] Pulse Oximetry 97 96 96 Oxygen Delivery Me thod OxyMask OxyMask OxyMask Oxygen Flow Rate 3 3 3 05/07/24 14:30 05/07/24 14:32 05/07/24 14:45 Temperature Pulse Rate 61 60 61 Pulse Rate [Pulse Oximeter] Pulse Rate [Right Pulse Oximeter] Respiratory Rate Blood Pressure 120/61 Blood Pressure [Ri ght Arm] Blood Pressure [Ri ght Upper Arm] Pulse Oximetry 97 96 95 Oxygen Delivery Me thod OxyMask OxyMask OxyMask Oxygen Flow Rate 3 3 3 05/07/24 15:00 05/07/24 15:02 05/07/24 15:29 Temperature 98.0 F Pulse Rate 63 62 Pulse Rate [Pulse Oximeter] 60 Pulse Rate [Right Pulse Oximeter] Respiratory Rate 20 Blood Pressure 124/70 Blood Pressure [Ri ght Arm] 147/67 H Blood Pressure [Ri ght Upper Arm] Pulse Oximetry 97 96 96 Oxygen Delivery Me thod OxyMask OxyMask Nasal Cannula Oxygen Flow Rate 3 3 3 05/07/24 15:29 Temperature Pulse Rate Pulse Rate [Pulse Oximeter] Pulse Rate [Right Pulse Oximeter] Respiratory Rate 20 Blood Pressure Blood Pressure [Ri ght Arm] Blood Pressure [Ri ght Upper Arm] Pulse Oximetry 96 Oxygen Delivery Me thod Nasal Cannula Oxygen Flow Rate 3 Documenting provider has reviewed patient's vital signs: yes Hospitalist - H&P: Result Labs Labs: Short CBC 05/07/24 Range/Units 11:50 WBC 8.72 (4.50-11.00) K/uL Hgb 11.9 L (13.5-17.5) gm/dL Hct 36.3 L (37.0-53.0) % Plt Count 175 (140-440) K/uL BMP 05/07/24 11:50 Sodium 129 L Potassium 3.8 Chloride 92 L Carbon Dioxide 28 BUN 14 Creatinine 0.9 Glucose 609 H* Calcium 8.8 Cardiac Enzymes 05/07/24 Range/Units 11:50 Troponin I < 0.01 L (0.01-0.04) ng/mL Liver Function 05/07/24 Range/Units 11:50 Total Bilirubin 0.9 (0.1-1.5) mg/dL AST 22 (12-35) U/L ALT 30 (4-50) U/L Alkaline Phosphatase 148 (40-150) U/L Albumin 3.9 (3.3-5.0) g/dL Urine 05/07/24 Range/Units 11:22 Urine Color Yellow (Yellow) Urine Appearance Slightly Cloudy A (Clear) Urine pH 6.0 (5.0-8.5) Ur Specific [place] >= 1.030 (1.000-1.030) Urine Protein Negative (Negative) Urine Glucose (UA) 2+ A (Negative) ECG Attestation: I personally reviewed and interpreted this ECG as follows: (Sinus bradycardia at 59. No acute ST-T changes) Imaging CT scan - head: Radiologist's impression: INDICATION: Hallucinations. Hyperglycemia. COMPARISON: None available. TECHNIQUE: CT of the head without intravenous contrast. Please note that all CT scans at this facility use dose modulation, iterative reconstruction, and/or weight-based dosing when appropriate to reduce radiation dose to as low as reasonably achievable. FINDINGS: No acute infarct. No intracranial mass or mass effect. No intracranial hemorrhage. No hydrocephalus. Asymmetric widening of the right parietal postcentral sulcus with asymmetrical prominence of the body of the right lateral ventricle consistent with parenchymal volume loss. Intact corticomedullary junction. These findings are considered incidental to the clinical history, likely congenital/developmental and otherwise of doubtful clinical significance. Intact skull base and cranial vault. Visualized orbits are without significant incidental findings. Right middle ear and mastoid effusions. The ossicles of the right middle ear and right mastoid air cells are intact. Recommend clinical correlation as to possible right otomastoiditis. Trace left mastoid effusion. Opacification of the left frontal recess and mild sphenoid sinus mucosal thickening. Unremarkable soft tissues. IMPRESSION: No imaging findings to explain hallucinations. No acute infarct, intracranial mass, mass effect, hemorrhage or hydrocephalus.. Incidental findings described in the body of the report. Assessment and Plan Assessment and plan (1) Diabetes mellitus, new onset: Status: Acute (2) Chronic hypoxic respiratory failure: Problem comment: Developed following COVID infection. On home oxygen 4 L per face mask Status: Acute (3) Morbid obesity with BMI of 45.0-49.9, adult: Problem comment: Would benefit greatly from weight loss. Consider GLP 1 agonist. Status: Acute (4) Obstructive sleep apnea: Problem comment: Has CPAP but does not use it. Strongly encouraged him to continue to try. Respiratory therapy talked with him about strategies to improved tolerance. Status: Acute (5) Visual hallucinations: Problem comment: Having visual hallucinations when his eyes are open. These do not cause any emotional disturbance. Possibly related to hyperglycemia in the context of other chronic mental health problems. Uncertain if this is related to medications. Refer to Psychiatry for this. Status: Acute Plan Patient is admitted to the hospital to initiate therapy for severe hyperglycemia and new onset diabetes mellitus. Will teach patient blood sugar monitoring, insulin administration to begin with. Will also start metformin. Monitor electrolytes and fluid status. Will need ongoing outpatient management of diabetes. Strongly urged use of tirzepatide which is indicated for type 2 diabetes, obesity and sleep apnea. Total Time Spent Total Time Spent: Total time spent today is 75 minutes in reviewing past medical history, outside records, discussing with patient and other providers ongoing evaluation management of new onset diabetes.
[2024-05-07] MEDS: ENOXAPARIN 40 MG/0.4 ML INJ SUBCUT (20:53)
[2024-05-07] MEDS: AMLODIPINE 5 MG TABLET PO (20:53)
[2024-05-07] MEDS: cloNIDine HCL 0.1 MG TABLET PO (20:53)
[2024-05-07] MEDS: MIRTAZAPINE 15 MG TABLET PO (20:53)
[2024-05-07] MEDS: TIZANIDINE HCL 4 MG TABLET PO (20:53)
[2024-05-07] MEDS: FAMOTIDINE 20 MG TABLET PO (20:53)
[2024-05-07] MEDS: ATORVASTATIN CALCIUM 40 MG TABLET PO (20:53)
[2024-05-07] MEDS: INSULIN GLARGINE,HUM.REC.ANLOG 100 UNIT/ML INSULN.PEN 20 UNIT SUBCUT (20:56)
[2024-05-07] MEDS: SODIUM CHLORIDE 0.9 % (FLUSH) 10 ML SYRINGE 5 ML IVF (20:56)
--- NOTE | 2024-05-07 23:29 | PC.NURSE ---
Pt arrived to the floor around 1500, alert, oriented and vitally stable. Pt on 3 L o2 chronically, tolerates well. Pt uses urinal. Pt uses walker at home to ambulate, though has not ambulated since being on the floor. Education provided, pt seems to be unreceptive to it. Pt has flat affect. Pt has chronic back pain, lays right laterally. Pt in bed, appears to be resting, call light within reach.
[2024-05-08] MEDS: INSULIN ASPART 100 UNIT/ML SUBCUT ×3 (02:25→11:56)
[2024-05-08 02:26] VITALS: BP 101/52; PULSE 54; RESP 14; TEMP 37; O2SAT 100
[2024-05-08] MEDS: OMEPRAZOLE 20 MG CAPSULE DR 40 MG PO (06:24)
[2024-05-08 06:35] LABS: HCO3 VBG 31 mmol/L (21-28); Lactate* 1.1 mmol/L (0.5-1.9); PCO2 VBG 60 mmHG (40-50); PO2 VBG 33.4 mmHG (25-47); pH VBG 7.324 (7.32-7.43)
[2024-05-08 06:41] LABS: Basophils Absolute Auto 0.02 K/uL (0.00-0.30); Basophils Percent Auto 0.2 % (0.0-3.0); Eosinophils Absolute Auto 0.24 K/uL (0.00-0.50); Eosinophils Percent Auto 2.7 % (0.0-7.0); Hematocrit 34.7 % (37.0-53.0); Hemoglobin* 11.2 gm/dL (13.5-17.5); Immature Granulocytes Abs Auto 0.03 K/uL (0.00-0.30); Immature Granulocytes Pct Auto 0.3 %; Lymphocytes Absolute Auto 1.92 K/uL (0.90-2.90); Lymphocytes Percent Auto 21.2 % (20-44); Mean Corpuscular HGB Conc 32 gm/dL (32-36); Mean Corpuscular Hemoglobin 27 pg (26-34); Mean Corpuscular Volume 83 fL (80-100); Monocytes Percent Auto 9.2 % (0.0-11.0); Neutrophils Absolute Auto 6.01 K/uL (1.7-7.0); Neutrophils Percent Auto 66.4 % (42.0-72.0); Platelet Count* 177 K/uL (140-440); RDW Coefficient of Variation % 14.5 % (11.5-15.5); White Blood Count* 9.05 K/uL (4.50-11.00)
[2024-05-08 06:44] LABS: Slide Review Reflex No
--- NOTE | 2024-05-08 06:50 | PC.NURSE ---
23-0700: Asleep throughout the night and was drowsy upon cares. Oxy mask that the patient uses chronically is patent and in use @ 3L. VS and no complaints of pain. BG was under 200, scheduled sliding scale insulin was given. Voiding in the urinal. The patient reported to me that this Diabetes diagnosis is all new for him. I assisted him with ordering breakfast. In report I was told that the patient only gets up a few times a week when he needs to have a BM. Call light within reach.? Judith ARIAS BSN
[2024-05-08 06:59] LABS: Chloride* 102 mmol/L (96-114); Potassium* 3.4 mmol/L (3.6-5.1); Sodium* 138 mmol/L (135-149)
[2024-05-08 07:00] VITALS: BP 123/53; PULSE 59; PULSE 64; RESP 18; TEMP 37; O2SAT 93
[2024-05-08 07:02] LABS: Anion Gap 5 mEq/L (7-15); Blood Urea Nitrogen* 13 mg/dL (7-30); Calcium* 8.5 mg/dL (8.4-10.6); Carbon Dioxide* 31 mmol/L (20-32); Creatinine* 0.8 mg/dL (0.5-1.5); Est. Creatinine Clearance* 90.83; Estimated Glomerular Filt Rate 103 ml/min; Glucose* 184 mg/dL (60-115)
[2024-05-08 07:03] LABS: Magnesium* 1.9 mg/dL (1.5-2.6)
[2024-05-08] MEDS: carvediloL 25 MG TABLET PO (07:55)
[2024-05-08] MEDS: INSULIN ASPART 100 UNIT/ML 10 UNIT SUBCUT ×2 (07:56→11:57)
[2024-05-08] MEDS: ESCITALOPRAM 10 MG TABLET 40 MG PO (09:21)
[2024-05-08] MEDS: FAMOTIDINE 20 MG TABLET PO (09:22)
[2024-05-08] MEDS: EZETIMIBE 10 MG TABLET PO (09:22)
[2024-05-08] MEDS: cloNIDine HCL 0.1 MG TABLET PO (09:22)
[2024-05-08] MEDS: oxyBUTYnin chloride 5 MG TAB.ER.24 PO (09:22)
[2024-05-08] MEDS: ASPIRIN 81 MG TAB.CHEW PO (09:22)
[2024-05-08] MEDS: CLOPIDOGREL 75 MG TABLET PO (09:22)
[2024-05-08] MEDS: ISOSORBIDE MONONITRATE ER 30 MG TAB 120 MG PO (09:22)
[2024-05-08] MEDS: AMLODIPINE 5 MG TABLET PO (09:22)
[2024-05-08] MEDS: SPIRONOLACTONE 25 MG TABLET PO (09:23)
[2024-05-08] MEDS: SODIUM CHLORIDE 0.9 % (FLUSH) 10 ML SYRINGE 5 ML IVF (09:23)
[2024-05-08 13:11] VITALS: BMI 42.8
--- NOTE | 2024-05-08 14:33 | P.DS_ITS ---
DS: Providers Provider Date Seen: 05/08/24 Date of admission: 05/07/24 15:09 Primary care physician: Jazmyn Clark DO Admitting Clinician: Chichi Mark MD Consults: 05/07/24 15:24 Consult to Nutrition [CONS] Routine Comment: Reason for consult:: Nutritional Consult Attending Physician on discharge: LILIANA Terry, P[facility] [place] [facility] Date of Discharge: 05/08/24 DS: Diagnosis Discharge Diagnosis (1) Diabetes mellitus, new onset: Status: Acute Problem details: -A1c 12.7, previously 6.1 in September 2023 Diabetic Education/nutrition in hospital and again with outpatient follow-up Patient is discharged on glargine 20 units at bedtime, NovoLog 10 units t.i.d. with meals, and low sliding scale for interim until follow-up with PCP. Start metformin 1000 mg q.p.m.. Prescribed a CGM. Follow-up with PCP for consideration of G LP 1. Continue aspirin, atorvastatin, antihypertensives. Close outpatient follow-up with PCP next week for ongoing management and outpatient referrals. (2) Chronic hypoxic respiratory failure: Status: Acute Problem details: Developed following COVID infection. On home oxygen 4 L per face mask At baseline on discharge (3) Morbid obesity with BMI of 45.0-49.9, adult: Status: Acute Problem details: Would benefit greatly from weight loss. Consider GLP 1 agonist. (4) Obstructive sleep apnea: Status: Acute Problem details: Has CPAP but does not use it. Strongly encouraged him to continue to try. Respiratory therapy talked with him about strategies to improved tolerance. (5) Visual hallucinations: Status: Acute Problem details: Having visual hallucinations when his eyes are open. These do not cause any emotional disturbance. Possibly related to hyperglycemia in the context of other chronic mental health problems. Uncertain if this is related to medications. Recommend outpatient follow-up with Psychiatry, further neurocognitive assessment. DS: Summary Hospital Course Hospital Course: Course of care and details as noted above. Remainder of chronic medical comorbidities were monitored and managed with home medications. Status at Discharge Functional status at discharge: uses cane/walker Overall status at discharge: patient is back to baseline Time Spent with Patient Time attestation: Total time spent providing and/or coordinating discharge services: Time spent: Greater than 30 minutes Exam Narrative: Exam Narrative: PHYSICAL EXAM General: Pleasant, conversant, NAD Cardiovascular: RRR Pulmonary: No dyspnea Neurological: Alert, answering questions appropriately Skin: Warm, dry. Const: Vital Signs, click to edit/add: Vital Signs - 24 hr 05/07/24 14:45 05/07/24 15:00 05/07/24 15:02 Temperature Pulse Rate 61 63 62 Pulse Rate [Pulse Oximeter] Respiratory Rate Blood Pressure 124/70 Blood Pressure [Le ft Arm] Blood Pressure [Ri ght Arm] Pulse Oximetry 95 97 96 Oxygen Delivery Me thod OxyMask OxyMask OxyMask Oxygen Flow Rate 3 3 3 05/07/24 15:29 05/07/24 15:29 05/07/24 19:00 Temperature 98.0 F 98.6 F Pulse Rate Pulse Rate [Pulse Oximeter] 60 66 Respiratory Rate 20 20 18 Blood Pressure Blood Pressure [Le ft Arm] Blood Pressure [Ri ght Arm] 147/67 H 114/49 L Pulse Oximetry 96 96 98 Oxygen Delivery Me thod Nasal Cannula Nasal Cannula OxyMask Oxygen Flow Rate 3 3 05/07/24 20:17 05/07/24 23:00 05/07/24 23:00 Temperature 98.2 F Pulse Rate 62 Pulse Rate [Pulse Oximeter] 55 L Respiratory Rate 18 Blood Pressure Blood Pressure [Le ft Arm] 102/54 L Blood Pressure [Ri ght Arm] Pulse Oximetry 98 98 Oxygen Delivery Me thod OxyMask OxyMask Oxygen Flow Rate 3 3 05/07/24 23:00 05/08/24 02:26 05/08/24 07:00 Temperature 98.6 F Pulse Rate 58 L Pulse Rate [Pulse Oximeter] 54 L 64 Respiratory Rate 14 18 Blood Pressure Blood Pressure [Le ft Arm] 101/52 L Blood Pressure [Ri ght Arm] Pulse Oximetry 100 Oxygen Delivery Me thod OxyMask Oxygen Flow Rate 3 05/08/24 07:00 05/08/24 07:00 05/08/24 07:00 Temperature 98.6 F Pulse Rate 59 L Pulse Rate [Pulse Oximeter] 64 Respiratory Rate 18 18 Blood Pressure Blood Pressure [Le ft Arm] 123/53 L Blood Pressure [Ri ght Arm] Pulse Oximetry 93 93 Oxygen Delivery Me thod OxyMask OxyMask Oxygen Flow Rate 3 3 DS: Data Data Completed and Pending Labs on day of discharge: Labs from last 24 hours 05/08/24 06:14 WBC 9.05 RBC 4.20 L Hgb 11.2 L Hct 34.7 L MCV 83 MCH 27 MCHC 32 RDW Coeff of Maria [place] 14.5 Plt Count 177 Neut % (Auto) 66.4 Lymph % (Auto) 21.2 [place] % (Auto) 9.2 Eos % (Auto) 2.7 Baso % (Auto) 0.2 Neut # (Auto) 6.01 Lymph # (Auto) 1.92 [place] # (Auto) 0.80 Eos # (Auto) 0.24 Baso # (Auto) 0.02 Abs Immat Gran (auto) 0.03 Imm/Tot Granulo (auto) 0.3 VBG pH 7.324 VBG pCO2 60 H VBG pO2 33.4 VBG HCO3 31 H Sodium 138 Potassium 3.4 L Chloride 102 Carbon Dioxide 31 Anion Gap 5 L BUN 13 Creatinine 0.8 Estimated Creat Clear 90.83 Estimated GFR 103 Glucose 184 H Lactate 1.1 Calcium 8.5 Magnesium 1.9 Preliminary micro results at discharge 05/07/24 11:22 Urine Culture - Preliminary Urine,Clean Catch > 100,000 COL/ML MIXED GRAM POSITIVE MELANIE ISOLATED NO FURTHER WORKUP Imaging CT scan - head: Attestation: I have reviewed the pertinent imaging results. Radiologist's impression: No acute infarct. No intracranial mass or mass effect. No intracranial hemorrhage. No hydrocephalus. Asymmetric widening of the right parietal postcentral sulcus with asymmetrical prominence of the body of the right lateral ventricle consistent with parenchymal volume loss. Intact corticomedullary junction. These findings are considered incidental to the clinical history, likely congenital/developmental and otherwise of doubtful clinical significance. Intact skull base and cranial vault. Visualized orbits are without significant incidental findings. Right middle ear and mastoid effusions. The ossicles of the right middle ear and right mastoid air cells are intact. Recommend clinical correlation as to possible right otomastoiditis. Trace left mastoid effusion. Opacification of the left frontal recess and mild sphenoid sinus mucosal thickening. Unremarkable soft tissues. IMPRESSION: No imaging findings to explain hallucinations. No acute infarct, intracranial mass, mass effect, hemorrhage or hydrocephalus.. Incidental findings described in the body of the report. Discharge Plan Discharge Disposition: Home, Self-Care Date of Admission: 05/07/24 15:09 Attending Provider on Discharge: Carli Patel Primary Care Provider: Jazmyn Clark Condition: Improved Anticipated Discharge Date/Time: 05/08/24 14:16 Discharge Medications: New metformin 500 mg Tablet Extended Release 24 Hr 1,000 mg PO QPM Qty: 60 0RF insulin aspart U-100 100 unit/mL (3 mL) Insulin Pen 10 unit subcut TIDWM Qty: 3 0RF insulin glargine [Lantus Solostar U-100 Insulin] 100 unit/mL (3 mL) Insulin Pen 20 unit subcut HS Qty: 3 0RF (DME) FreeStyle Dougie 14 Day Sensor Kit See Rx Instructions .Route Qty: 1 0RF Rx Instructions: As directed Continued atorvastatin 40 mg tablet 40 mg PO HS carvedilol 25 mg tablet 25 mg PO BIDWM clonidine HCl 0.1 mg tablet 0.1 mg PO BID clopidogrel 75 mg tablet 75 mg PO DAILY famotidine 20 mg tablet 20 mg PO BID isosorbide mononitrate 60 mg tablet extended release 24 hr 120 mg PO DAILY omeprazole 40 mg capsule,delayed release(DR/EC) 40 mg PO DAILY oxybutynin chloride 5 mg tablet extended release 24hr 5 mg PO DAILY tizanidine 4 mg tablet 4 mg PO HS cholecalciferol (vitamin D3) 25 mcg (1,000 unit) tablet 1,000 unit PO DAILY cyanocobalamin (vitamin B-12) [Vitamin B-12] 1,000 mcg tablet 1,000 mcg PO DAILY nitroglycerin [Nitrostat] 0.4 mg tablet, sublingual 0.4 mg sublingual Q5-15M PRN Rx Instructions: do not exceed 3 doses per episode escitalopram oxalate 10 mg tablet 40 mg PO DAILY ezetimibe 10 mg tablet 10 mg PO DAILY ergocalciferol (vitamin D2) [Vitamin D2] 1,250 mcg (50,000 unit) capsule 1,250 mcg PO .,TH; spironolactone 25 mg tablet 25 mg PO DAILY mirtazapine 15 mg tablet 15 mg PO HS amlodipine 5 mg tablet 5 mg PO BID clonazepam 1 mg tablet 1 mg PO HS PRN aspirin [Aspirin Childrens] 81 mg tablet,chewable 81 mg PO DAILY Discharge Orders: Discharge Order (Routine); Ordered 05/08/24 Ordered By: Carli Patel Patient Education: Metformin (By mouth) (Glucophage, Glucophage XR, Fortamet,..., Insulin Aspart, Recombinant (By injection) (Novolog, Novolog..., Insulin Glargine (By injection) (Lantus, Lantus SoloStar, Toujeo, Semglee), Hypoglycemia in a Person with Diabetes (ED), How to Give an Insulin Injection (ED), Diabetic Hyperglycemia (GEN), Type 2 Diabetes in the Older Adult (DC), Diabetes and Nutrition (GEN) Activity Level: Activity as Tolerated Discharge Diet: Diabetic Follow Up Appointments: Jazmyn Clark DO [Primary Care Provider] - 05/13/24 1:50 pm ([facility] for follow up with PCP to set up Outpatient diabetic nutrition consult. ) Forms: [employer] Info Instructions
--- NOTE | 2024-05-08 16:14 | PC.NURSE ---
Discharge: Patient alert and oriented. VSS. 3 L oxy mask sating 93-95%. Patient tolerating a diabetic diet. Education done with patient and spouse on how to use and administer Insulin and use insulin pen. Patient demonstrated how to use pen, prime, and administer insulin to self. Patient's IV removed intact. Discharged to home today at 1555 accompanied by spouse. Discharge paperwork signed, patient and spouse verbalized understanding of instructions. Belongings sheet also signed.
== END 2024-05-08 15:55 | disposition home or self-care (01) ==
LOC: ED 14:50 → MEDSURG 15:09
PROVIDERS: Family Medicine; Admitting Provider Family Medicine; Emergency Provider Family Medicine; PCP Family Medicine; Visit Provider Family Medicine
DX: E11.65 Type 2 diabetes mellitus with hyperglycemia (principal); J96.11 Chronic respiratory failure with hypoxia; R44.1 Visual hallucinations; G47.33 Obstructive sleep apnea (adult) (pediatric); I10 Essential (primary) hypertension; K21.9 Gastro-esophageal reflux disease without esophagitis; E66.01 Morbid (severe) obesity due to excess calories; Z99.81 Dependence on supplemental oxygen; Z79.82 Long term (current) use of aspirin; Z86.16 Personal history of COVID-19
CPT/HCPCS: 36415; 70450; 80048; 80053; 81001; 82803; 82947; 82962; 83036; 83605; 83735; 83880; 84484; 85025; 87086; 93005; 94761; 96360; 96361; 96372; 99284; 99285; A9270; G0378; J1650; J1815; J7030